=== PATIENT | female | born 1985 | race Caucasian/White ===

== ENCOUNTER 2017-02-08 21:54 | Emergency (ER) | payer SELFPAY ==
[~2017-02-08] VITALS: Ht 165.1 cm; Wt 83.5 kg
[~2017-02-08 21:54] MED LIST: PREG25CA PO
[2017-02-08] MEDS ORDERED: FAMOTIDINE 20 MG (PEPCID) TABLET PO STA (22:17)
[2017-02-08] MEDS ORDERED: DEXAMETHASONE PF 10 MG/ML (DECADRON) VIAL IM STA (22:17)
[2017-02-08] MEDS ORDERED: predniSONE 20 MG TAB PO ONE (22:30)
[2017-02-08] MEDS ORDERED: diphenhydrAMINE 25 MG TAB (BENADRYL) PO ONE (22:30)
--- NOTE | 2017-02-08 22:30 | ED Integumentary General ---
General Chief Complaint: rash Stated Complaint: rash Nursing Triage Note: Patient reports rash and hives since the beginning of December. Denies any known precipitating factors. Source: patient Exam Limitations: no limitations History of Present Illness Time seen by provider: 22:15 Initial Comments 31-year-old female patient presents to the emergency department complains of a rash and hives beginning in December. States she has been seen by her primary care physician and given steroids, Benadryl, and ktqe-xij-mviudux antihistamines without improvement in symptoms. Denies any new medications, clothing soap, bath soaps, lotions, shampoos, foods, etc. Timing/Duration: getting worse, other (onset at 17 December) Location: generalized Possible Cause: no cause identified Modifying Factors: worse with antihistamine (no improvement with antihistamines ), worse with scratching Allergies and Home Medications Allergies Coded Allergies: No Known Drug Allergies (Unverified , 07/15/15) Home Medications Pregabalin 25 Mg Capsule, 25 MG PO BID, (Reported) Constitutional: no symptoms reported EENTM: No ear pain, No mouth pain, No mouth swelling, No nose congestion, No throat pain, No throat swelling Respiratory: No cough, No short of breath, No stridor, No wheezing Cardiovascular: no symptoms reported Gastrointestinal: no symptoms reported Musculoskeletal: no symptoms reported Skin: see HPI, pruritus, rash Psychiatric/Neurological: Denies Headache All Other Systems Reviewed Negative Unless Noted: Yes (Negative excepted noted.) Past Vywofmf-Ykmeqo-Tzyvfb Hx Surgeries HX Surgeries: Yes Surgeries: Adenoidectomy, Tonsillectomy Respiratory Hx Respiratory Disorders: No Cardiovascular Hx Cardiac Disorders: No Neurological Hx Neurological Disorders: Yes Neurological Disorders: Neuropathy Genitourinary Hx Genitourinary Disorders: No Gastrointestinal Hx Gastrointestinal Disorders: No Musculoskeletal Hx Musculoskeletal Disorders: No Reviewed Nursing Assessment Reviewed/Agree w Nursing PMH: Yes Family Medical History Significant Family History: No Pertinent Family Hx Physical Exam Vital Signs Capillary Refill : General Appearance: WD/WN, no apparent distress HEENT: PERRL/EOMI, pharynx normal Neck: supple, normal inspection Cardiovascular: normal peripheral pulses, no edema, no murmur, tachycardia Respiratory: lungs clear, normal breath sounds, no respiratory distress, no accessory muscle use Gastrointestinal: normal bowel sounds, non tender, soft, No distended Extremities: non-tender, normal capillary refill, other (generalized maculopapular rash of all 4 extremities) Neurologic/Psychiatric: alert, normal mood/affect, oriented x 3 Skin: warm/dry, No cyanosis, No cool, No diaphoresis, No damp, No mottled, rash (generalized maculopapular rash) Skin Problem Location: generalized Skin Problem Character: macules, papules, rash Progress/Results/Core Measures Results/Orders My Orders Orders - CHARBEL LAI Famotidine Tablet (Pepcid Tablet) (02/08/17 22:17) Dexamethasone Pf Injection (Decadron Pf (02/08/17 22:17) Diphenhydramine Tablet (Benadryl Tablet) (02/08/17 22:30) Prednisone Tablet (Deltasone Tablet) (02/08/17 22:30) Im/Sub-Q Injection Non-Ab Ed (02/08/17 ) Vital Signs/I&O Departure Communication Progress Notes Patient seen and evaluated. Patient follow-up with her primary care physician. See attached scanned discharge instructions. Impression Impression: Primary Impression: Urticaria Disposition: 01 HOME, SELF-CARE Condition: Improved Departure-Patient Inst. Decision time for Depature: 23:21 CHARBEL LAI February 08, 2017 22:30
[2017-02-08 23:25] VITALS: BP 113/74
--- NOTE | 2017-02-28 14:28 | Physician Query-Final Dx ---
ELLE BERNAL 02/28/17 1428: Clinic Account Progress/Dx Physician Query: Please give diagnosis Date of Service February 08, 2017 at 21:57 Progress Note: Please complete template. Elle [phone] JUDY HOLLINGSWORTH 03/10/17 1744: ELLE BERNAL Feb 28, 2017 14:28 JUDY HOLLINGSWORTH Mar 10, 2017 17:44
--- OUTSIDE RECORDS SUMMARY | 2017-03-01 11:55 | XMS REPORT ---
Author CLARI Castillo [facility] eClinicalWorks Address Unknown Phone Unavailable Care Team Providers Care Curator Herbarium Name Role Phone CLARI CHRISTIE Unavailable Allergies No Known Allergies Problems Problem Type Condition Code Onset Dates Condition Status Problem Tooth abscess 522.5 Active Problem Neuropathy 355.9 Active Medications No Known Medications Results No Known Results Summary Purpose eClinicalWorks Submission
--- OUTSIDE RECORDS SUMMARY | 2017-03-01 11:55 | XMS REPORT ---
Author BENITO Meyers [facility] eClinicalWorks Address Unknown Phone Unavailable Care Team Providers Care Campus Recruiter Name Role Phone BENITO ACUÑA CP Unavailable Allergies, Adverse Reactions, Alerts Substance Reaction Event Type N.K.D.A. Info Not Available Non Drug Allergy Problems Problem Type Condition Code Onset Dates Condition Status Problem Tooth abscess 522.5 Active Assessment Acute suppurative otitis media of left ear without spontaneous rupture of tympanic membrane, recurrence not specified H66.002 Active Problem Neuropathy 355.9 Active Medications Medication Code System Code Instructions Start Date End Date Status Dosage Amoxicillin [facility] [address]-23 500 MG Orally Three times a day January 16, 2016 January 26, 2016 1 capsule Lyrica [facility] [address]-07 50 mg Orally 3 times a day December 01, 2015 1 capsule PredniSONE [facility] [address]-91 20 mg Orally Once a day January 16, 2016January 2 tablets Procedures Procedure Coding System Code Date Office Visit, Est Pt., Level 3 CPT-4 88009 January 16, 2016 Vital Signs Date/Time: January 16, 2016 Temperature 98.3 F Weight 185.6 lbs Height 65.6 in BMI 30.32 Index Blood Pressure Diastolic 74 mmHg Blood Pressure Systolic 106 mmHg Cardiac Monitoring Heart Rate 80 bpm Results No Known Results Summary Purpose eClinicalWorks Submission
--- OUTSIDE RECORDS SUMMARY | 2017-03-01 11:55 | XMS REPORT ---
Author Author JOANNE HUSSEIN Organization eClinicalWorks Address Unknown Phone Unavailable Care Team Providers Care Supervisor Paint Name Role Phone JOANNE HUSSEIN CP Unavailable Allergies No Known Allergies Problems Problem Type Condition ICD-9 Code Onset Dates Condition Status Assessment Dental examination V72.2 Active Medications No Known Medications Procedures Procedure Coding System Code Date INTRAORL-PERIAPICAL EA ADD FILM CPT-4 D0230 Apr 20, 2015 INTRAORL-PERIAPICAL EA ADD FILM CPT-4 D0230 Apr 20, 2015 LTD ORAL EVALUATION - PROBLEM FOCUS CPT-4 D0140 Apr 20, 2015 EXTRAC ERUPTED TOOTH/EXPOSED ROOT CPT-4 D7140 Apr 20, 2015 BITEWING - SINGLE FILM CPT-4 D0270 Apr 20, 2015 EXTRAC ERUPTED TOOTH/EXPOSED ROOT CPT-4 D7140 Apr 20, 2015 Results No Known Results Summary Purpose eClinicalWorks Submission
--- OUTSIDE RECORDS SUMMARY | 2017-03-01 11:55 | XMS REPORT ---
Author ADDISON Oliva Organization eClinicalWorks Address Unknown Phone Unavailable Care Team Providers Care Governor Assembler Hydraulic Name Role Phone ADDISON DIANA CP Unavailable Allergies, Adverse Reactions, Alerts Substance Reaction Event Type N.K.D.A. Info Not Available Non Drug Allergy Problems Problem Type Condition Code Onset Dates Condition Status Problem Tooth abscess 522.5 Active Assessment Abscessed tooth K04.7 Active Problem Neuropathy 355.9 Active Medications Medication Code System Code Instructions Start Date End Date Status Dosage Lyrica [facility] [address]-42 50 mg Orally 3 times a day December 01, 2015 1 capsule Amoxicillin [facility] [address]-93 500 MG Orally every 12 hrs April 12, 2016 Apr 22, 2016 2 capsules Procedures Procedure Coding System Code Date Office Visit, Est Pt., Level 3 CPT-4 03442 April 12, 2016 Vital Signs Date/Time: April 12, 2016 Cardiac Monitoring Heart Rate 84 bpm Weight 201.6 lbs Height 65.6 in Blood Pressure Diastolic 66 mmHg Blood Pressure Systolic 102 mmHg Results No Known Results Summary Purpose eClinicalWorks Submission
--- OUTSIDE RECORDS SUMMARY | 2017-03-01 11:55 | XMS REPORT | Continuity of Care Document ---
Author Author Formerly [facility] Address Unknown Phone Unavailable Allergies Active Description Code Type Severity Reaction Onset Reported/Identified Relationship to Patient Clinical Status Yes No Known Drug Allergies [id number] Drug Allergy Unknown N/ A 07/15/2015 Medications Problems Date Dx Coded Attending Type Code Diagnosis Diagnosed By 06/22/2009 PRAVEEN MITCHELL DO 372.30 CONJUNCTIVITIS, UNSPECIFIED 06/22/2009 ADELA WARD APRN A 372.30 CONJUNCTIVITIS, UNSPECIFIED 06/22/2009 JUDY MARSHALL APRN R 372.30 CONJUNCTIVITIS, UNSPECIFIED 06/22/2009 PRAVEEN MITCHELL DO 372.30 CONJUNCTIVITIS, UNSPECIFIED 01/06/2011 PRAVEEN MITCHELL DO K 729.5 PAIN IN LIMB 01/06/2011 ADELA WARD APRN A 729.5 PAIN IN LIMB 01/06/2011 JUDY MARSHALL APRN R 729.5 PAIN IN LIMB 01/06/2011 PRAVEEN MITCHELL DO K 729.5 PAIN IN LIMB 04/11/2012 PRAVEEN MITCHELL DO K 380.4 CERUMEN IMPACTION 04/11/2012 LUIS MITCHELL DOA K 462 PHARYNGITIS ACUTE 04/11/2012 ADELA WARD APRN A 380.4 CERUMEN IMPACTION 04/11/2012 RAFFY WARD APRNIDI A 462 PHARYNGITIS ACUTE 04/11/2012 JUDY MARSHALL APRN R 380.4 CERUMEN IMPACTION 04/11/2012 JUDY MARSHALL APRN R 462 PHARYNGITIS ACUTE 04/11/2012 PRAVEEN MITCHELL DO K 380.4 CERUMEN IMPACTION 04/11/2012 LUIS MITCHELL DOA K 462 PHARYNGITIS ACUTE 04/20/2012 LUIS MITCHELL DOA K 380.10 OTITIS EXTERNA RIGHT 04/20/2012 ADELA WARD APRN A 380.10 OTITIS EXTERNA RIGHT 04/20/2012 JUDY MARSHALL APRN R 380.10 OTITIS EXTERNA RIGHT 04/20/2012 MITCHELL PRAVEEN MAN 380.10 OTITIS EXTERNA RIGHT 07/10/2013 PRAVEEN MITCHELL DO V76.10 BREAST CANCER SCREENING 07/10/2013 SYLVIAADELA Romero APRN V76.10 BREAST CANCER SCREENING 07/10/2013 JUDY MARSHALL APRN R V76.10 BREAST CANCER SCREENING 07/10/2013 PRAVEEN MITCHELL DO V76.10 BREAST CANCER SCREENING 06/02/2014 JUDY MARSHALL APRN R 305.1 TOBACCO ABUSE 06/02/2014 JUDY MARSHALL APRN R 786.2 COUGH 06/02/2014 JUDY MARSHALL APRN R V01.79 CONTACT WITH OR EXPOSURE TO OTHER VIRAL DISEASES 06/02/2014 PRAVEEN MITCHELL DO 305.1 TOBACCO ABUSE 06/02/2014 PRAVEEN MITCHELL DO 786.2 COUGH 06/02/2014 PRAVEEN MITCHELL DO V01.79 CONTACT WITH OR EXPOSURE TO OTHER VIRAL DISEASES 10/03/2014 PRAVEEN MITCHELL DO 356.9 UNSPECIFIED IDIOPATHIC PERIPHERAL NEUROPATHY 10/03/2014 PRAVEEN MITCHELL DO 720.2 SACROILIITIS NOT ELSEWHERE CLASSIFIED 10/03/2014 PRAVEEN MITCHELL DO 724.3 SCIATICA 07/15/2015 SKYLAR LYNNE, KD Abreu Ot F17.210 NICOTINE DEPENDENCE, CIGARETTES, UNCOMPL 07/15/2015 SKYLAR LYNNE, KD Abreu Ot S61.258A OPEN BITE OF OTHER FINGER W/O DAMAGE TO 07/15/2015 SKYLAR LYNNE, KD Abreu Ot W59.11XA BITTEN BY NONVENOMOUS SNAKE, INITIAL ENC Procedures Code Description [place] [address] MONO TEST (IN-HOUSE) 06/02/2014 Results Encounters ACCT No. Visit Date/Time Discharge Status Pt. Type Provider Facility Loc./Unit Complaint [id number] 10/03/2014 15:21:00 10/03/2014 23: 59:59 CLS Outpatient PRAVEEN MITCHELL DO [id number] 06/02/2014 13:09:00 06/02/2014 23: 59:59 CLS Outpatient JUDY MARSHALL APRN [id number] 08/08/2013 08:33:00 08/08/2013 23: 59:59 CLS Outpatient ADELA WARD APRN [id number] 07/10/2013 18:14:00 07/10/2013 23: 59:59 [facility] Outpatient PRAVEEN MITCHELL DO
--- OUTSIDE RECORDS SUMMARY | 2017-03-01 11:55 | XMS REPORT ---
Author Author PRAVEEN MITCHELL [facility] Address [address] [place] [address] Care Team Providers Care Laundry Superintendent Name Role Phone PRAVEEN MITCHELL Unavailable PROBLEMS Type Condition ICD9-CM Code [id number] Code Onset Dates Condition Status SNOMED Code Problem Abscess, thorax J86.9 Active 608304432 Problem Neuropathy 355.9 Active 644496683 Problem Tooth abscess 522.5 Active 865108431 ALLERGIES Unknown Allergies SOCIAL HISTORY No smoking Hx information available PLAN OF CARE VITAL SIGNS MEDICATIONS Unknown Medications RESULTS No Results PROCEDURES No Known procedures IMMUNIZATIONS No Known Immunizations
--- OUTSIDE RECORDS SUMMARY | 2017-03-01 11:55 | XMS REPORT ---
Author MARIA D Smith [facility] eClinicalWorks Address Unknown Phone Unavailable Care Team Providers Care Affiliate Marketing Manager Name Role Phone MARIA D GAVIN CP Unavailable Allergies, Adverse Reactions, Alerts Substance Reaction Event Type N.K.D.A. Info Not Available Non Drug Allergy Problems Problem Type Condition Code Onset Dates Condition Status Problem Tooth abscess 522.5 Active Assessment Fever, unspecified fever cause R50.9 Active Problem Neuropathy 355.9 Active Medications Medication Code System Code Instructions Start Date End Date Status Dosage Lyrica [facility] [address]-79 50 MG Three times a day Oct 03, 2014 1 capsule by Oral route 3 times per day idioapathic neuropathy (356.9) Promethazine-Codeine [facility] [address]-36 6.25-10 MG/5ML Orally every 6 hrs Sep 07, 2015 5 ml as needed Zithromax Z-Temo [facility] [address]-86 250 MG Orally Once a day Sep 07, 2015 Sep 12, 2015 2 tablets on the first day, then 1 tablet daily for 4 days Procedures Procedure Coding System Code Date Office Visit, Est Pt., Level 3 CPT-4 70682 Sep 07, 2015 INFLUENZA ASSAY W/OPTIC CPT-4 94387 Sep 07, 2015 Vital Signs Date/Time: Sep 07, 2015 Temperature 98.5 F Weight 178.6 lbs Height 65.6 in BMI 29.18 Index Blood Pressure Diastolic 82 mmHg Blood Pressure Systolic 110 mmHg Cardiac Monitoring Heart Rate 104 bpm Results No Known Results Summary Purpose eClinicalWorks Submission
--- OUTSIDE RECORDS SUMMARY | 2017-03-01 11:55 | XMS REPORT ---
Author Author CLARI CHRISTIE Organization [facility] [place] [facility] Address [address] [place] [address] Care Team Providers Care Generation Technologist Name Role Phone LOULOU CHRISTIENETTE Unavailable PROBLEMS Type Condition ICD9-CM Code VFY29-ZP Code Onset Dates Condition Status SNOMED Code Problem Abscess, thorax J86.9 Active 990165241 Problem Neuropathy 355.9 Active 505014604 Problem Tooth abscess 522.5 Active 418983614 Assessment Abscess, thorax J86.9 Aug, Active 024906504 ALLERGIES Substance Reaction Event Type Date Status N.K.D.A. Unknown Non Drug Allergy Aug, Unknown SOCIAL HISTORY No smoking Hx information available PLAN OF CARE VITAL SIGNS Height 65.6 in 2016-08-20 Weight 197.4 lbs 2016-08-20 Heart Rate 112 bpm 2016-08-20 Respiratory Rate 20 2016-08-20 BMI 32.25 kg/m2 2016-08-20 Blood pressure systolic 110 mmHg 2016-08-20 Blood pressure diastolic 76 mmHg 2016-08-20 MEDICATIONS Medication Instructions Dosage Frequency Start Date End Date Duration Status Bactrim DS 800-160 MG Orally Twice a day 1 tablet 12h Aug,Aug 10 day(s) Active Ultram 50 mg Orally every 6 hrs 1 tablet as needed 6h Aug, Active RESULTS No Results PROCEDURES Procedure Date Ordered Related Diagnosis Body Site Office Visit, Est Pt., Level 3 Aug 20, 2016 IMMUNIZATIONS No Known Immunizations
--- OUTSIDE RECORDS SUMMARY | 2017-03-01 11:55 | XMS REPORT ---
Author Author JOANNE HUSSEIN Organization eClinicalWorks Address Unknown Phone Unavailable Care Team Providers Care Bottom Filler Name Role Phone JOANNE HUSSEIN CP Unavailable Allergies No Known Allergies Problems Problem Type Condition ICD-9 Code Onset Dates Condition Status Assessment Dental examination V72.2 Active Medications No Known Medications Procedures Procedure Coding System Code Date INTRAORL-PERIAPICAL 1 FILM 79328 CPT-4 D0220 Apr 21, 2015 LTD ORAL EVALUATION - PROBLEM FOCUS CPT-4 D0140 Apr 21, 2015 Results No Known Results Summary Purpose eClinicalWorks Submission
--- OUTSIDE RECORDS SUMMARY | 2017-03-01 11:55 | XMS REPORT ---
Author Author ADELA WARD Organization eClinicalWorks Address Unknown Phone Unavailable Care Team Providers Care Medical Insurance Coding Specialist Name Role Phone ADELA WARD CP Unavailable Allergies, Adverse Reactions, Alerts Substance Reaction Event Type N.K.D.A. Info Not Available Non Drug Allergy Problems Problem Type Condition ICD-9 Code Onset Dates Condition Status Assessment Pap test, as part of routine gynecological examination V76.2 Active Assessment Breast cancer screening V76.10 Active Assessment Routine gynecological examination V72.31 Active Assessment Vaginal itching 698.1 Active Assessment Laboratory examination ordered as part of a complete physical examination V72.62 Active Medications Medication Code System Code Instructions Start Date End Date Status Dosage Lyrica [facility] [address]-74 50 mg Oct 03, 2014 1 capsule by Oral route 3 times per day idioapathic neuropathy (356.9) Procedures Procedure Coding System Code Date CULTURE, BACTERIA, OTHER CPT-4 01960 May 07, 2015 Preventive Care Est Pt. Age 18-39 CPT-4 57449 May 07, 2015 SPECIMEN HANDLING CPT-4 27317 May 07, 2015 Vital Signs Date/Time: May 07, 2015 Temperature 97.8 F Weight 176.4 lbs Height 64 in BMI 30.28 Index Blood Pressure Diastolic 78 mmHg Blood Pressure Systolic 122 mmHg Cardiac Monitoring Heart Rate 88 bpm Results Name Result Date Reference Range Unit Abnormality Flag CULTURE, GENITAL Summary Purpose eClinicalWorks Submission
--- OUTSIDE RECORDS SUMMARY | 2017-03-01 11:55 | XMS REPORT ---
Author Author CLARI CHRISTIE [facility] eClinicalWorks Address Unknown Phone Unavailable Care Team Providers Care Cut Off Man Name Role Phone CLARI CHRISTIE CP Unavailable Allergies, Adverse Reactions, Alerts Substance Reaction Event Type N.K.D.A. Info Not Available Non Drug Allergy Problems Problem Type Condition ICD-9 Code Onset Dates Condition Status Problem Tooth abscess 522.5 Active Assessment Neuropathy 355.9 Active Problem Neuropathy 355.9 Active Assessment Tooth abscess 522.5 Active Medications Medication Code System Code Instructions Start Date End Date Status Dosage Lyrica [facility] [address]-31 50 MG Three times a day Oct 03, 2014 1 capsule by Oral route 3 times per day idioapathic neuropathy (356.9) Amoxicillin [facility] [address]-93 500 MG Orally 3 times a day Jun 04, 2015 Jun 14, 2015 1 tablet Procedures Procedure Coding System Code Date Office Visit, Est Pt., Level 4 CPT-4 04810 Jun 04, 2015 Vital Signs Date/Time: Jun 04, 2015 Temperature 97.8 F Weight 177.7 lbs Height 64 in BMI 30.50 Index Blood Pressure Diastolic 60 mmHg Blood Pressure Systolic 122 mmHg Cardiac Monitoring Heart Rate 82 bpm Results No Known Results Summary Purpose eClinicalWorks Submission
--- OUTSIDE RECORDS SUMMARY | 2017-03-01 11:55 | XMS REPORT ---
Author Author BENITO ACUÑA [facility] Address [address] [place] [address] Care Team Providers Care Combination Building Inspector Name Role Phone BENITO ACUÑA Unavailable PROBLEMS Type Condition ICD9-CM Code CSY28-LA Code Onset Dates Condition Status SNOMED Code Problem Abscess, thorax J86.9 Active 908171918 Problem Neuropathy 355.9 Active 368290151 Problem Tooth abscess 522.5 Active 018091259 Assessment Abscess, thorax J86.9 Aug, Active 157237176 ALLERGIES Substance Reaction Event Type Date Status N.K.D.A. Unknown Non Drug Allergy Aug, Unknown SOCIAL HISTORY No smoking Hx information available PLAN OF CARE VITAL SIGNS Height 65.6 in 2016-08-26 Weight 201.7 lbs 2016-08-26 Heart Rate 82 bpm 2016-08-26 Respiratory Rate 18 2016-08-26 BMI 32.95 kg/m2 2016-08-26 Blood pressure systolic 122 mmHg 2016-08-26 Blood pressure diastolic 78 mmHg 2016-08-26 MEDICATIONS Medication Instructions Dosage Frequency Start Date End Date Duration Status Lyrica 50 mg Orally 3 times a day 1 capsule 8h Nov, Active ProAir HFA 108 (90 Base) MCG/ACT Inhalation every 4 hrs 2 puffs as needed 4h Nov, Active Ultram 50 mg Orally every 6 hrs 1 tablet as needed 6h Aug, Active Bactrim DS 800-160 MG Orally Twice a day 1 tablet 12h Aug,Aug 10 day(s) Active RESULTS No Results PROCEDURES Procedure Date Ordered Related Diagnosis Body Site Office Visit, Est Pt., Level 3 Aug 26, 2016 IMMUNIZATIONS No Known Immunizations
--- OUTSIDE RECORDS SUMMARY | 2017-03-01 11:55 | XMS REPORT ---
Author Author GIFTY ALEXANDER Organization eClinicalWorks Address Unknown Phone Unavailable Care Team Providers Care Pellet Machine Operator Name Role Phone GIFTY ALEXANDER CP Unavailable Allergies No Known Allergies Problems Problem Type Condition ICD-9 Code Onset Dates Condition Status Assessment Dental examination V72.2 Active Medications No Known Medications Procedures Procedure Coding System Code Date INTRAORL-PERIAPICAL EA ADD FILM CPT-4 D0230 May 20, 2015 INTRAORL-PERIAPICAL EA ADD FILM CPT-4 D0230 May 20, 2015 INTRAORL-PERIAPICAL 1 FILM 13724 CPT-4 D0220 May 20, 2015 PANORAMIC FILM SEE ALSO CODE 58369 CPT-4 D0330 May 20, 2015 INTRAORL-PERIAPICAL EA ADD FILM CPT-4 D0230 May 20, 2015 INTRAORL-PERIAPICAL EA ADD FILM CPT-4 D0230 May 20, 2015 BITEWINGS - FOUR FILMS CPT-4 D0274 May 20, 2015 INTRAORL-PERIAPICAL EA ADD FILM CPT-4 D0230 May 20, 2015 Results No Known Results Summary Purpose eClinicalWorks Submission
== END 2017-02-08 23:25 | disposition home or self-care (01) ==
LOC: EDUNIT# 21:54 → ER 21:57
DX: L50.9 Urticaria, unspecified (principal); R21 Rash and other nonspecific skin eruption
CPT/HCPCS: 96372; 99282

== ENCOUNTER 2017-04-14 18:42 | Emergency (ER) | payer OTHER ==
[~2017-04-14] VITALS: Ht 165.1 cm; Wt 93.0 kg
[2017-04-14] MEDS ORDERED: NAPR500T3 PO (19:07)
[2017-04-14] MEDS ORDERED: LORA0.5T PO (19:07)
[2017-04-14] MEDS ORDERED: ESCI10TA55 PO (19:07)
[2017-04-14] MEDS ORDERED: Chantix (19:07)
[2017-04-14] MEDS ORDERED: PREG50CA2 PO (19:07)
--- NOTE | 2017-04-14 20:09 | ED General ---
General Chief Complaint: Exposure Stated Complaint: NEEDS BLOOD TEST Nursing Triage Note: PT WAS STUCK IN RIGHT INDEX FINGER WITH DIABETIC NEEDLE WHILE CLEANING A ROOM AT WORK AT [employer]. 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 She was cleaning linens when she poked herself on the right pointer finger with an insulin needle. She states this is the type of needle that screws onto a big toes up in. She is familiar with this type of needle because her has to use this. It is not typical insulin needle. This did draw blood and she immediately washed it off. Tetanus is up-to-date within the past 5 years. She states that she has had a hepatitis B vaccine. The hepatitis B, hep C, HIV status of the source patient is obviously unknown. Timing/Duration: 4-6 Hours Severity: Mild Associated Systoms: Denies Symptoms Allergies and Home Medications Allergies Coded Allergies: No Known Drug Allergies (Unverified , 07/15/15) Home Medications Escitalopram Oxalate 10 Mg Tablet, 10 MG PO DAILY, #30 (Reported) Lorazepam 0.5 Mg Tablet, 0.5 MG PO BID PRN for ANXIETY, #60 (Reported) Naproxen 500 Mg Tablet, 500 MG PO BID, #60 (Reported) Pregabalin 50 Mg Capsule, 50 MG PO TID, #84 (Reported) [Chantix] , #56 (Reported) Constitutional: see HPI EENTM: see HPI Respiratory: no symptoms reported Cardiovascular: no symptoms reported Genitourinary: no symptoms reported Musculoskeletal: no symptoms reported Skin: no symptoms reported Psychiatric/Neurological: No Symptoms Reported Hematologic/Lymphatic: No Symptoms Reported Past Eskgjad-Lzwvta-Mcwewa Hx Patient Social History Alcohol Use: Occasionally Uses Recreational Drug Use: No Smoking Status: Never a Smoker Recent Foreign Travel: No Contact w/Someone Who Travel: No Recent Infectious Disease Expo: No Recent Hopitalizations: No Immunizations Up To Date Tetanus Booster (TDap): Unknown Seasonal Allergies Seasonal Allergies: No Surgeries HX Surgeries: Yes Surgeries: Adenoidectomy, Tonsillectomy Respiratory Hx Respiratory Disorders: No Cardiovascular Hx Cardiac Disorders: No Neurological Hx Neurological Disorders: Yes Neurological Disorders: Neuropathy Genitourinary Hx Genitourinary Disorders: No Gastrointestinal Hx Gastrointestinal Disorders: No Musculoskeletal Hx Musculoskeletal Disorders: No Family Medical History Significant Family History: No Pertinent Family Hx Physical Exam Vital Signs Vital Sign - Last 12Hours 04/14/17 19:01 Temp 98.3 Pulse 70 Resp 16 B/P (MAP) 127/93 Capillary Refill : Less Than 3 Seconds General Appearance: No Apparent Distress, WD/WN Eyes: Bilateral Eye EOMI, Bilateral Eye Normal Inspection, Bilateral Eye PERRL HEENT: PERRL/EOMI, TMs Normal Respiratory: No Accessory Muscle Use, No Respiratory Distress Cardiovascular: Regular Rate, Rhythm, Normal Peripheral Pulses Gastrointestinal: Non Tender, Soft Extremity: Normal Capillary Refill, Normal Inspection Neurologic/Psychiatric: Alert, Oriented x3 Skin: Normal Color, Warm/Dry Progress/Results/Core Measures Results/Orders Lab Results Laboratory Tests Test 04/14/17 20:00 Range/Units My Orders Orders - HARLAN ROWE APRN Cbc With Automated Diff (04/14/17 19:21) Comprehensive Metabolic Panel (04/14/17 19:21) Hepatitis B Surface Antibody (04/14/17 19:21) Hepatitis C Antibody (04/14/17 19:21) Hiv 1&2 Antibody (04/14/17 19:21) Hcg,Qualitative Serum (04/14/17 20:07) Vital Signs/I&O Vital Sign - Last 12Hours 04/14/17 19:01 Temp 98.3 Pulse 70 Resp 16 B/P (MAP) 127/93 Blood Pressure Mean: 104 Departure Impression Impression: Primary Impression: Exposure to blood-borne pathogen Disposition: HOME, SELF-CARE Condition: Stable Departure-Patient Inst. Decision time for Depature: 20:11 Referrals: [facility] (PCP/Family) Primary Care Physician Patient Instructions: NO INSTRUCTIONS GIVEN Add. Discharge Instructions: 1. Call occupational health on Monday to make an appointment for follow-up. They will guide your treatment from this point on. Take the anti-viral medications as directed. Side effects including nausea, vomiting, dizziness, headache fatigue dizziness and insomnia. 2. Return to ER for any concerns 3. All discharge instructions reviewed with patient and/or family. Voiced understanding. Scripts Raltegravir Potassium (Isentress) 400 Mg Tablet 400 MG PO BID, #20 TAB Prov: HARLAN ROWE APRN 04/14/17 Emtricitabine/Tenofovir (Truvada 200 mg-300 mg Tablet) 1 Each Tablet 1 EACH PO DAILY, #10 TAB Prov: HARLAN ROWE APRN 04/14/17 HARLAN ROWE APRN Apr 14, 2017 20:09
[2017-04-14] MEDS ORDERED: EMTR1TAB7 PO (20:14)
[2017-04-14] MEDS ORDERED: RALT400T PO (20:14)
[2017-04-14] MEDS ORDERED: EMTRICITABINE/TENOFOVIR (TRUVADA) TAB PO SCH (20:15)
[2017-04-14 20:21] LABS: BASOPHILS % (AUTO) 0 % (0-10); EOSINOPHILS # (AUTO) 0.1 10^3/uL (0.0-0.3); EOSINOPHILS % (AUTO) 1 % (0-10); LYMPHOCYTES # (AUTO) 2.2 X 10^3 (1.0-4.0); LYMPHOCYTES % (AUTO) 30 % (12-44); MEAN CORPUSCULAR HEMOGLOBIN 28 PG (25-34); MEAN CORPUSCULAR HGB CONC 34 G/DL (32-36); MEAN CORPUSCULAR VOLUME 85 FL (80-99); MEAN PLATELET VOLUME 10.6 FL (7.4-10.4); MONOCYTES # (AUTO) 0.5 X 10^3 (0.0-1.0); MONOCYTES % (AUTO) 7 % (0-12); NEUTROPHILS # (AUTO) 4.7 X 10^3 (1.8-7.8); NEUTROPHILS % (AUTO) 63 % (42-75); PLATELET COUNT 193 10^3/uL (130-400); RED BLOOD COUNT 4.64 10^6/uL (4.35-5.85); RED CELL DISTRIBUTION WIDTH 13.3 % (10.0-14.5); WHITE BLOOD COUNT 7.5 10^3/uL (4.3-11.0)
[2017-04-14 20:28] LABS: ALANINE AMINOTRANSFERASE 20 U/L (0-55); ALBUMIN 4.3 GM/DL (3.2-4.5); ANION GAP 12 MMOL/L (5-14); ASPARTATE AMINO TRANSFERASE 16 U/L (5-34); BILIRUBIN,TOTAL 0.3 MG/DL (0.1-1.0); BLOOD UREA NITROGEN 22 MG/DL (7-18); BUN/CREATININE RATIO 30; CALCIUM 9.2 MG/DL (8.5-10.1); CARBON DIOXIDE 19 MMOL/L (21-32); CHLORIDE 108 MMOL/L (98-107); CREATININE SERUM 0.74 MG/DL (0.60-1.30); GFR ESTIMATED > 60; GLUCOSE 97 MG/DL (70-105); SODIUM 139 MMOL/L (135-145); TOTAL PROTEIN 7.2 GM/DL (6.4-8.2)
[2017-04-14 20:50] VITALS: BP 118/87
[2017-04-15] MEDS ORDERED: RALTEGRAVIR 400 MG (ISENTRESS) TABLET PO SCH (09:00)
[2017-04-17 13:02] LABS: HEPATITIS B SURFACE AB INDEX >1000.00 mIU/mL (>=10.00)
[2017-04-17 14:42] LABS: HEPATITIS B SURFACE AB INTERP Immune (Immune); HIV AG AB SCREEN Non-Reactive (Non-Reactive)
== END 2017-04-14 20:50 | disposition home or self-care (01) ==
LOC: EDUNIT# 18:42 → ER 18:49
DX: Z03.89 Encounter for observation for other suspected diseases and conditions ruled out (principal); B19.10 Unspecified viral hepatitis B without hepatic coma; Z77.21 Contact with and (suspected) exposure to potentially hazardous body fluids
CPT/HCPCS: 36415; 80053; 84703; 85025; 86703; 86706; 86803; 99283

== ENCOUNTER 2018-02-22 23:23 | Emergency (ER) | payer OTHER ==
[~2018-02-22] VITALS: Ht 165.1 cm; Wt 93.0 kg
[~2018-02-22 23:23] MED LIST changes: +Chantix; +EMTR1TAB7 PO; +ESCI10TA55 PO; +LORA0.5T PO; +NAPR-915 PO; +PREG50CA2 PO; +RALT400T PO
--- OUTSIDE RECORDS SUMMARY | 2018-02-22 23:28 | XMS REPORT ---
Author Author KALPESH COSTA Organization [facility] Address [address] [place] [address] Care Team Providers Care Real Estate Closer Name Role Phone KALPESH COSTA Unavailable PROBLEMS Type Condition ICD9-CM Code [id number] Code Onset Dates Condition Status SNOMED Code Problem Mood disorder F39 Active 43563058 Problem Anxiety F41.9 Active 75856377 Problem TORSTEN II (cervical intraepithelial neoplasia II) N87.1 Active 593762350 Problem Cervical high risk human papillomavirus (HPV) DNA test positive R87.810 Active 406476473 Problem Other chronic pain G89.29 Active 26142198 ALLERGIES No Known Allergies SOCIAL HISTORY Never Assessed PLAN OF CARE Activity Details Follow Up Will call with results Reason: VITAL SIGNS Height 65.6 in 2016-10-11 Weight 201.9 lbs 2016-10-11 Temperature 97.7 degrees Fahrenheit 2016-10-11 BMI 32.98 kg/m2 2016-10-11 Blood pressure systolic 110 mmHg 2016-10-11 Blood pressure diastolic 68 mmHg 2016-10-11 MEDICATIONS Medication Instructions Dosage Frequency Start Date End Date Duration Status Chantix Starting Month Temo 0.5 MG X 11 & 1 MG X 42 Orally Once a day once per day then twice per day 24h 10 Sep, 2016 Oct, 30 days Active Lyrica 50 mg Orally 3 times a day 1 capsule 8h Nov, Active ProAir HFA 108 (90 Base) MCG/ACT Inhalation every 4 hrs 2 puffs as needed 4h Nov, Active Ibuprofen 800 MG Orally Three times a day 1 tablet 8h 10 Active RESULTS Name Result Date Reference Range TEST, URINE (IN HOUSE) 2016-10-11 RESULTS negative Lot # [id number] Control + Exp date 12/2017 PDF Report 2016-10-11 PDF Report1 [facility] REPORT 2016-10-11 . . . . Comment: . . . . PROCEDURES Procedure Date Ordered Result Body Site URINE TEST Oct 11, 2016 BX/CURETT OF CERVIX W/SCOPE Oct 11, 2016 IMMUNIZATIONS No Known Immunizations MEDICAL (GENERAL) HISTORY Type Description Date Medical History Neuropathy left leg Surgical History tonsillectomy Hospitalization History Child x 2
--- OUTSIDE RECORDS SUMMARY | 2018-02-22 23:29 | XMS REPORT ---
Author Author SURESH Burton [facility] Address [address] [place] [address] Care Team Providers Care Gambling Dealer Name Role Phone mikeSURESH Alonzo Unavailable PROBLEMS Type Condition ICD9-CM Code YDW75-[id number] Code Onset Dates Condition Status SNOMED Code Problem Mood disorder F39 Active 54499625 Problem Anxiety F41.9 Active 03437691 Problem TORSTEN II (cervical intraepithelial neoplasia II) N87.1 Active 414812311 Problem Cervical high risk human papillomavirus (HPV) DNA test positive R87.810 Active 107387508 Problem Other chronic pain G89.29 Active 23743935 ALLERGIES No Known Allergies ENCOUNTERS Encounter Location Date Diagnosis [place] [id number] [address] Dec, Anxiety F41.9 [place] [address] [address] Nov, Anxiety F41.9 [place] [address] [place] [id number] [place] [address] Sep, Anxiety F41.9 [facility] [address] [address] Sep, Acute upper respiratory infection, unspecified J06.9 ; Sore throat J02.9 ; Other viral agents as the cause of diseases classified elsewhere B97.89 and Body aches R52 [facility] [address] [address] Sep, [facility] [address] [place] [id number] [place] [address] Sep, Gum abscess K05.219 [place] [address] [place] [address] Aug, Anxiety F41.9 [facility] [address] [place] [id number] [place] [address] Aug, Anxiety F41.9 ; Mood disorder F39 and Pain in jaw not originating in temporomandibular joint R68.84 [facility] [address] [place] [id number] [place] [address] Jul, Gum abscess K05.219 [facility] [address] [id number] Jun, Dental examination Z01.20 [facility] [address] [address] May, 2017 [facility] [address] [place] [id number] [place] [address] May, [facility] [address] [id number] May, Dental examination Z01.20 [facility] [address] [place] [id number] [place] [address] May, Infection of scalp L08.9 and Acute bacterial conjunctivitis of left eye H10.32 [place] [address] [place] [id number] [place] [address] May, Mood disorder F39 [facility] [address] [place] [id number] [place] [address] Apr, Tinea capitis B35.0 and Cellulitis L03.90 [facility] [address] [place] [id number] [place] [address] Apr, Mood disorder F39 [facility] [address] [place] [id number] [place] [address] Mar, Anxiety F41.9 and Pain in left knee M25.562 [facility] [address] [address] January, Abscess, thorax J86.9 [place] [address] [address] January, Abscess, thorax J86.9 [facility] [address] [place] [address] January, Scabies B86 [facility] [place] [address] [place] [address] Dec, Contact dermatitis, unspecified contact dermatitis type, unspecified trigger L25.9 [facility] [id number] [id number] Oct, [facility] [place] [address] [place] [address] 17 Oct, 2016 Acute pain of right knee M25.561 and Strain of right knee, subsequent encounter S86.911D [facility] [address] [place] [address] Oct, Strain of right knee, initial encounter S86.911A [place] [address] [place] [id number] [place] [address] Oct, Tobacco use Z72.0 ; Tobacco abuse counseling Z71.6 ; Other chronic pain G89.29 and Disorder of teeth and supporting structures, unspecified K08.9 [place] [address] [place] [address] Sep, Cervical high risk human papillomavirus (HPV) DNA test positive R87.810 and Atypical squamous cells of undetermined significance on cytologic smear of cervix (ASC-US) R87.610 [place] [address] [place] [id number] [place] [address] Sep, Tobacco use Z72.0 and Tobacco abuse counseling Z71.6 [place] [address] [place] [address] Sep, Well woman exam Z01.419 [place] [address] [address] Aug, Routine gynecological examination V72.31 ; Well woman exam Z01.419 and Low libido R68.82 [facility] [address] [address] Aug, Dental caries K02.9 [facility] [place] [address] [address] Aug, Wheezing R06.2 and Bronchitis J40 [place] [address] [address] Aug, Abscess, thorax J86.9 [facility] [place] [address] [address] Aug, [facility] [address] [address] Aug, Abscess, thorax J86.9 [facility] [place] [address] [address] Aug, Abscess, thorax J86.9 [place] [address] [address] Jul, [facility] [place] [address] [address] Mar, Abscessed tooth K04.7 [place] [address] [address] January, Mononeuropathy, unspecified G58.9 [facility] [address] [address] Dec, Acute suppurative otitis media of left ear without spontaneous rupture of tympanic membrane, recurrence not specified H66.002 [place] [address] [address] Nov, COPD (chronic obstructive pulmonary disease) J44.9 ; Environmental allergies Z91.09 and Fibromyalgia M79.7 [facility] [address] [place] [address] Nov, Abdominal pain R10.9 and Gastroenteritis K52.9 [facility] [address] [place] [id number] [place] [address] Aug, Fever, unspecified fever cause R50.9 [facility] [address] [address] May, Neuropathy 355.9 and Tooth abscess 522.5 [facility] [address] [id number] May, Dental examination V72.2 [facility] [address] [place] [id number] [place] [address] Apr, Routine gynecological examination V72.31 ; Pap test, as part of routine gynecological examination V76.2 ; Breast cancer screening V76.10 ; Vaginal itching 698.1 and Laboratory examination ordered as part of a complete physical examination V72.62 [facility] [address] [id number] Apr, Dental examination V72.2 [facility] [address] [place] [id number] [place] [address] Apr, [facility] [address] [place] [id number] [place] [id number] Apr, Dental examination V72.2 [facility] [address] [place] [id number] [place] [address] Mar, [facility] [address] [address] Dec, [facility] [address] [place] [id number] [place] [address] Dec, [facility] [address] [place] [id number] [place] [address] Sep, [facility] [address] [facility] [id number] [address] Sep, [facility] [address] [place] [id number] [address] May, [facility] [address] [place] [id number] [address] May, [facility] [address] [place] [id number] [address] Jul, [facility] [address] [place] [id number] [address] Jul, [facility] [address] [place] [id number] [address] Jun, [facility] [address] [address] Jun, [facility] [address] [place] [id number] [address] Apr, [facility] [address] [facility] [id number] [address] Apr, [facility] [address] [place] [id number] [address] Mar, IMMUNIZATIONS No Known Immunizations SOCIAL HISTORY Never Assessed REASON FOR VISIT Rash outbreak on face started yesterday JStrasserRN, Draining rash on scalp started PLAN OF CARE Activity Details Follow Up prn Reason: VITAL SIGNS Height 65.6 in 2017-04-24 Weight 201.6 lbs 2017-04-24 Temperature 97.6 degrees Fahrenheit 2017-04-24 Heart Rate 80 bpm 2017-04-24 Respiratory Rate 22 2017-04-24 BMI 32.93 kg/m2 2017-04-24 Blood pressure systolic 128 mmHg 2017-04-24 Blood pressure diastolic 80 mmHg 2017-04-24 MEDICATIONS Medication Instructions Dosage Frequency Start Date End Date Duration Status Ativan 0.5 MG Orally 2 times a day 1 tablet as needed 12h Mar, Active Wellbutrin SR 150 MG Orally Twice a day 1 tablet 12h Apr, 30 day(s) Active Isentress 400 MG Orally Twice a day 1 tablet 12h Active Terbinafine HCl 250 MG Orally Once a day 1 tablet 24h Apr,Apr 14 days Active Cephalexin 500 MG Orally every 12 hrs 1 capsule 12h Apr, Apr, 10 day(s) Active Lyrica 50 mg Orally 3 times a day 1 capsule 8h 15 Nov, 2015 28 days Active Naproxen 500 mg Orally 2 times a day 1 tablet as needed 12h Mar, Active Chantix Starting Month Temo 0.5 MG X 11 & 1 MG X 42 Orally Once a day as directed 24h January, 30 days Active Truvada 200-300 MG Orally Once a day 1 tablet 24h Active RESULTS No Results PROCEDURES No Known procedures INSTRUCTIONS MEDICATIONS ADMINISTERED No Known Medications MEDICAL (GENERAL) HISTORY Type Description Date Medical History Neuropathy left leg Surgical History tonsillectomy Hospitalization History Child x 2
--- OUTSIDE RECORDS SUMMARY | 2018-02-22 23:29 | XMS REPORT ---
Author Author CLARI CHRISTIE Organization [facility] Address [address] [place] [address] Care Team Providers Care Hollow Handle Bench Worker Name Role Phone CLARI CHRISTIE Unavailable PROBLEMS Type Condition ICD9-CM Code MWP25-DI Code Onset Dates Condition Status SNOMED Code Problem Mood disorder F39 Active 48778296 Problem Anxiety F41.9 Active 58756818 Problem TORSTEN II (cervical intraepithelial neoplasia II) N87.1 Active 055497155 Problem Cervical high risk human papillomavirus (HPV) DNA test positive R87.810 Active 205661159 Problem Other chronic pain G89.29 Active 57646826 ALLERGIES Substance Reaction Event Type Date Status N.K.D.A. Unknown Non Drug Allergy Aug, Unknown SOCIAL HISTORY No smoking Hx information available PLAN OF CARE Activity Details Follow Up 2 Weeks Reason:make appointment with dentist VITAL SIGNS Height 65.6 in 2016-09-10 Weight 200.6 lbs 2016-09-10 Temperature 97.2 degrees Fahrenheit 2016-09-10 Heart Rate 86 bpm 2016-09-10 Respiratory Rate 18 2016-09-10 BMI 32.77 kg/m2 2016-09-10 Blood pressure systolic 116 mmHg 2016-09-10 Blood pressure diastolic 74 mmHg 2016-09-10 MEDICATIONS Medication Instructions Dosage Frequency Start Date End Date Duration Status Mucinex 600 MG Orally every 12 hrs 1 tablet as needed 12h Nov, Active ProAir HFA 108 (90 Base) MCG/ACT Inhalation every 4 hrs 2 puffs as needed 4h Nov, Active Ibuprofen 800 MG Orally Three times a day 1 tablet 8h Aug, Sep, 10 days Active Amoxicillin 500 MG Orally 3 times a day 1 tablet 8h Aug, Sep, 10 day(s) Active Lyrica 50 mg Orally 3 times a day 1 capsule 8h Nov, Active RESULTS No Results PROCEDURES Procedure Date Ordered Related Diagnosis Body Site Office Visit, Est Pt., Level 3 Sep 10, 2016 IMMUNIZATIONS No Known Immunizations
--- OUTSIDE RECORDS SUMMARY | 2018-02-22 23:29 | XMS REPORT ---
Author Author SURESH PATTERSON Organization [facility] Address [address] [place] [address] Care Team Providers Care Spouting Installer Name Role Phone SURESH PATTERSON Unavailable PROBLEMS Type Condition ICD9-CM Code LYZ29-NJ Code Onset Dates Condition Status SNOMED Code Problem Mood disorder F39 Active 85432807 Problem Anxiety F41.9 Active 86939408 Problem TORSTEN II (cervical intraepithelial neoplasia II) N87.1 Active 616236671 Problem Cervical high risk human papillomavirus (HPV) DNA test positive R87.810 Active 694760779 Problem Other chronic pain G89.29 Active 79115199 ALLERGIES Substance Reaction Event Type Date Status N.K.D.A. Unknown Non Drug Allergy Aug, Unknown SOCIAL HISTORY No smoking Hx information available PLAN OF CARE Activity Details Follow Up prn Reason: VITAL SIGNS Height 65.6 in 2016-09-05 Weight 201.7 lbs 2016-09-05 Temperature 97.7 degrees Fahrenheit 2016-09-05 Heart Rate 120 bpm 2016-09-05 Respiratory Rate 20 2016-09-05 Oximetry 95 % 2016-09-05 BMI 32.95 kg/m2 2016-09-05 Blood pressure systolic 102 mmHg 2016-09-05 Blood pressure diastolic 74 mmHg 2016-09-05 MEDICATIONS Medication Instructions Dosage Frequency Start Date End Date Duration Status PredniSONE 20 MG Orally Once a day 2 tablet 24h Aug, Aug, 5 days Active ProAir HFA 108 (90 Base) MCG/ACT Inhalation every 4 hrs 2 puffs as needed 4h Nov, Active Ultram 50 mg Orally every 6 hrs 1 tablet as needed 6h Aug, Active Lyrica 50 mg Orally 3 times a day 1 capsule 8h Nov, Active RESULTS Name Result Date Reference Range Xray : Chest (IN HOUSE) 2016-09-05 PROCEDURES Procedure Date Ordered Related Diagnosis Body Site ALBUTEROL UNIT DOSE FORM INHALED 2016-09-05 N/A MEASURE BLOOD OXYGEN LEVEL Sep 05, 2016 ALBUTEROL INHAL UNIT DOSE 1 MG Sep 05, 2016 NEB/MDI RX INITIAL Sep 05, 2016 Office Visit, Est Pt., Level 3 Sep 05, 2016 CHEST X-RAY Sep 05, 2016 IMMUNIZATIONS No Known Immunizations
--- OUTSIDE RECORDS SUMMARY | 2018-02-22 23:29 | XMS REPORT ---
Author Author BENITO ACUÑA Organization [facility] Address [address] [place] [address] Care Team Providers Care Speech And Language Clinician Name Role Phone BENITO ACUÑA Unavailable PROBLEMS Type Condition ICD9-CM Code PUW04-LG Code Onset Dates Condition Status SNOMED Code Problem Mood disorder F39 Active 25112154 Problem Anxiety F41.9 Active 73665637 Problem TORSTEN II (cervical intraepithelial neoplasia II) N87.1 Active 418329245 Problem Cervical high risk human papillomavirus (HPV) DNA test positive R87.810 Active 741515190 Problem Other chronic pain G89.29 Active 79601101 ALLERGIES No Known Allergies ENCOUNTERS Encounter Location Date Diagnosis [facility] [address] [address] Dec, Anxiety F41.9 [facility] [id number] [place] [address] 53619- 4257 Nov, Anxiety F41.9 [facility] [id number] [place] [address] 13404- 4407 Sep, Anxiety F41.9 [facility] [id number] [place] [address] 45073- 3664 Sep, Acute upper respiratory infection, unspecified J06.9 ; Sore throat J02.9 ; Other viral agents as the cause of diseases classified elsewhere B97.89 and Body aches R52 [facility] [id number] [place] [address] 08599 -4828 Sep, [facility] [id number] [place] [address] 26972- 3241 Sep, Gum abscess K05.219 [facility] [address] 02388- 1448 Aug, Anxiety F41.9 [facility] [id number] [place] [address] 44322- 0247 Aug, Anxiety F41.9 ; Mood disorder F39 and Pain in jaw not originating in temporomandibular joint R68.84 [facility] [id number] [place] [address] 60343 -4511 Jul, Gum abscess K05.219 [facility] [address] [id number] Jun, Dental examination Z01.20 [facility] [address] 50896- 0074 27 May, 2017 [facility] [id number] [place] [address] 59298- 5756 May, [facility] [address] [id number] May, Dental examination Z01.20 [facility] [id number] [place] [address] 57547 -5024 May, Infection of scalp L08.9 and Acute bacterial conjunctivitis of left eye H10.32 [place] [id number] [place] [address] 44670- 4328 May, Mood disorder F39 [facility] [id number] [place] [address] 89489 -5905 Apr, Tinea capitis B35.0 and Cellulitis L03.90 [facility] [id number] [place] [address] 65383- 9616 Apr, Mood disorder F39 [place] [id number] [place] [address] 62588- 4353 Mar, Anxiety F41.9 and Pain in left knee M25.562 [place] [id number] [place] [address] 13113- 5914 January, Abscess, thorax J86.9 [place] [address], [place] [address] January, Abscess, thorax J86.9 [facility] [id number] [place] [address] 83866 -0686 January, Scabies B86 [facility] [place] [address] [place] [address] 73685 -7761 Dec, Contact dermatitis, unspecified contact dermatitis type, unspecified trigger L25.9 [facility] [id number] [place] [id number] Oct, [facility] [place] [id number] [place] [address] 86086 -4562 Oct, Acute pain of right knee M25.561 and Strain of right knee, subsequent encounter S86.911D [facility] [place] [id number] [place] [address] 95098 -4643 Oct, Strain of right knee, initial encounter S86.911A [place] [id number] [place] [address] 09304- 3364 06 Oct, 2016 Tobacco use Z72.0 ; Tobacco abuse counseling Z71.6 ; Other chronic pain G89.29 and Disorder of teeth and supporting structures, unspecified K08.9 [place] [address] [place] [address] 71202- 5962 Sep, Cervical high risk human papillomavirus (HPV) DNA test positive R87.810 and Atypical squamous cells of undetermined significance on cytologic smear of cervix (ASC-US) R87.610 [place] [id number] [place] [address] 57877- 0490 Sep, Tobacco use Z72.0 and Tobacco abuse counseling Z71.6 [place] [id number] [place] [address] 65849- 2162 Sep, Well woman exam Z01.419 [place] [address] 32559- 2990 Aug, Routine gynecological examination V72.31 ; Well woman exam Z01.419 and Low libido R68.[address] [facility] [address] [place] [address] 57505 -6887 Aug, Dental caries K02.9 [facility] [address] 0[address]75 Aug, Wheezing R06.2 and Bronchitis J40 [place] [address] 68193- 4630 Aug, Abscess, thorax J86.[address] [facility] [address] [place] [address] 87419 -6192 Aug, [facility] [address] [place] [address] 70076 -6483 Aug, Abscess, thorax J86.[address] [facility] [place] [address] 08572 -4520 Aug, Abscess, thorax J86.9 [place] [address] 24537- 4073 Jul, [facility] [place] [address] 94867 -3977 Mar, Abscessed tooth K04.7 [place] [address] 82164- 6773 January, Mononeuropathy, unspecified G58.9 [facility] [address] 22353 -1363 Dec, Acute suppurative otitis media of left ear without spontaneous rupture of tympanic membrane, recurrence not specified H66.002 [place] [address] 19264- 4457 15 Nov, 2015 COPD (chronic obstructive pulmonary disease) J44.9 ; Environmental allergies Z91.09 and Fibromyalgia M79.7 [facility] [address] [place] [address] 19682 -8687 Nov, Abdominal pain R10.9 and Gastroenteritis K52.9 [facility] [id number] [place] [address] 440390- 6755 Aug, Fever, unspecified fever cause R50.9 [facility] [address] 72019- 4518 May, Neuropathy 355.9 and Tooth abscess 522.5 [facility] [address] [id number] May, Dental examination V72.2 [facility] [id number] [place] [address] 62144- 9473 Apr, Routine gynecological examination V72.31 ; Pap test, as part of routine gynecological examination V76.2 ; Breast cancer screening V76.10 ; Vaginal itching 698.1 and Laboratory examination ordered as part of a complete physical examination V72.62 [facility] [address] [id number] Apr, Dental examination V72.2 [facility] [id number] [place] [address] 92990- 6899 Apr, [facility] [address] [id number] Apr, Dental examination V72.2 [facility] [id number] [place] [address] 87943- 8973 Mar, [facility] [address] 76832- 7916 Dec, [facility] [id number] [place] [address] 96884- 6743 Dec, [facility] [id number] [place] [address] 84677- 8543 Sep, [facility] [address] [place] [address] 2546 Sep, [facility] [address] [place] [id number] [address] May, [facility] [address], [place] [address] 2546 May, [facility] [address], [place] [address]- 5600 Jul, [facility] [id number] [place] [address] 58947- 7069 Jul, [facility] [id number] [place] [address] 17937- 0841 Jun, [facility] [id number] [place] [address] 87600 2546 Jun, [facility] [id number] [place] [address] 11282- 3650 Apr, [facility] [address], [place] [address] 2546 Apr, [facility] [address], [place] [address]- 3186 Mar, IMMUNIZATIONS No Known Immunizations SOCIAL HISTORY Never Assessed REASON FOR VISIT Mood disorder Pt states she is irritable on Wellbutrin x 1 months.Seems to help at times with some symptoms, but states she wanted to punch ppl when irritated. Kenji PLAN OF CARE Activity Details Follow Up 4 Weeks Reason:mood disorder VITAL SIGNS Height 65.6 in 2017-05-29 Weight 199.9 lbs 2017-05-29 Temperature 98.3 degrees Fahrenheit 2017-05-29 Heart Rate 76 bpm 2017-05-29 Respiratory Rate 20 2017-05-29 BMI 32.66 kg/m2 2017-05-29 Blood pressure systolic 118 mmHg 2017-05-29 Blood pressure diastolic 78 mmHg 2017-05-29 MEDICATIONS Medication Instructions Dosage Frequency Start Date End Date Duration Status Chantix Starting Month Temo 0.5 MG X 11 & 1 MG X 42 Orally Once a day as directed 24h January, 30 days Active Lyrica 50 mg Orally 3 times a day 1 capsule 8h 15 Nov, 2015 28 days Active Naproxen 500 mg Orally 2 times a day 1 tablet as needed 12h Mar, Active Abilify 2 MG Orally Once a day 1 tablet 24h 11 May, 2017 30 day(s) Active Ativan 0.5 MG Orally 2 times a day 1 tablet as needed 12h Mar, Active RESULTS No Results PROCEDURES No Known procedures INSTRUCTIONS MEDICATIONS ADMINISTERED No Known Medications MEDICAL (GENERAL) HISTORY Type Description Date Medical History Neuropathy left leg Surgical History tonsillectomy Hospitalization History Child x 2
--- OUTSIDE RECORDS SUMMARY | 2018-02-22 23:29 | XMS REPORT ---
Author Author RENETTA BROWN Organization [facility] Address [address] [place] [address] Care Team Providers Care Management Accounts Manager Name Role Phone RENETTA BROWN Unavailable PROBLEMS Type Condition ICD9-CM Code NCO89-SJ Code Onset Dates Condition Status SNOMED Code Problem Mood disorder F39 Active 02994446 Problem Anxiety F41.9 Active 55377889 Problem TORSTEN II (cervical intraepithelial neoplasia II) N87.1 Active 261397831 Problem Cervical high risk human papillomavirus (HPV) DNA test positive R87.810 Active 991461458 Problem Other chronic pain G89.29 Active 35056079 ALLERGIES No Known Allergies SOCIAL HISTORY Never Assessed PLAN OF CARE Activity Details Follow Up prn Reason: VITAL SIGNS Height 65.6 in 2016-10-27 Weight 203.4 lbs 2016-10-27 Temperature 98.1 degrees Fahrenheit 2016-10-27 Heart Rate 82 bpm 2016-10-27 Respiratory Rate 18 2016-10-27 BMI 33.23 kg/m2 2016-10-27 Blood pressure systolic 120 mmHg 2016-10-27 Blood pressure diastolic 74 mmHg 2016-10-27 MEDICATIONS Medication Instructions Dosage Frequency Start Date End Date Duration Status Lyrica 50 mg Orally 3 times a day 1 capsule 8h Nov, Active Chantix Continuing Month Temo 1 MG Orally Twice a day 1 tablet 12h Oct, Dec, 30 day(s) Active ProAir HFA 108 (90 Base) MCG/ACT Inhalation every 4 hrs 2 puffs as needed 4h Nov, Active Chantix Starting Month Temo 0.5 MG X 11 & 1 MG X 42 Orally Once a day once per day then twice per day 24h 10 Sep, 2016 Oct, 30 days Active Ibuprofen 800 MG Orally Three times a day 1 tablet 8h 06 Oct, 2016 Nov, 30 day(s) Active Ibuprofen 800 MG Orally Three times a day 1 tablet 8h 10 Active RESULTS No Results PROCEDURES No Known procedures IMMUNIZATIONS No Known Immunizations MEDICAL (GENERAL) HISTORY Type Description Date Medical History Neuropathy left leg Surgical History tonsillectomy Hospitalization History Child x 2
--- OUTSIDE RECORDS SUMMARY | 2018-02-22 23:29 | XMS REPORT ---
Author Author BENITO ACUÑA Organization [facility] Address [address] [place] [address] Care Team Providers Care Knocker Off Name Role Phone BENITO ACUÑA Unavailable PROBLEMS Type Condition ICD9-CM Code JLJ87-EO Code Onset Dates Condition Status SNOMED Code Problem Mood disorder F39 Active 45394099 Problem Anxiety F41.9 Active 03161182 Problem TORSTEN II (cervical intraepithelial neoplasia II) N87.1 Active 219107239 Problem Cervical high risk human papillomavirus (HPV) DNA test positive R87.810 Active 235007912 Problem Other chronic pain G89.29 Active 36374814 ALLERGIES No Known Allergies ENCOUNTERS Encounter Location Date Diagnosis [facility] [address] [address] Dec, [address]41.9 [facility] [id number] [place] [address] 90487- 9158 Nov, Anxiety F41.9 [facility] [id number] [place] [address] 53905- 2105 Sep, [address]41.9 [facility] [id number] [place] [address] 55964- 3031 Sep, Acute upper respiratory infection, unspecified J06.9 ; Sore throat J02.9 ; Other viral agents as the cause of diseases classified elsewhere B97.89 and Body aches R52 [facility] [id number] [place] [address] 66086 -3786 Sep, [facility] [id number] [place] [address] 65083- 3374 Sep, Gum abscess K05.219 [facility] [address] 8[address]- 0749 Aug, [address]xiety [address].9 [facility] [id number] [place] [address] 34131- 1534 Aug, Anxiety F41.9 ; Mood disorder F39 and Pain in jaw not originating in temporomandibular joint R68.84 [facility] [id number] [place] [address] 21712 -9138 Jul, Gum abscess K05.219 [facility] [address] [id number] Jun, Dental examination Z01.20 [facility] [address] [address]33- [address]386 27 May, 2017 [facility] [address] [place] [id number] [place] [address] 99365- 6970 May, [facility] [address] [id number] May, Dental examination Z01.20 [facility] [id number] [place] [address] 11648 -7551 May, Infection of scalp L08.9 and Acute bacterial conjunctivitis of left eye H10.32 [place] [address] [place] [id number] [place] [address] 65085- 1392 May, Mood disorder F39 [facility] [id number] [place] [address] 12255 -6508 Apr, Tinea capitis B35.[address] [facility] [address] [place] [id number] [place] [address] 67862- 0440 Apr, Mood disorder F39 [place] [address] [place] [id number] [place] [address] 97746- 9678 Mar, Anxiety F41.9 and Pain in left knee M25.562 [place] [address] [place] [id number] [place] [address] 69460- 7556 January, Abscess, thorax J86.9 [place] [address], [place] [address]- 2864 January, Abscess, thorax J86.9 [facility] N [id number] [place] [address] 12379 -2620 January, Scabies B86 [facility] [place] [id number] [place] [address] 64501 -1208 Dec, Contact dermatitis, unspecified contact dermatitis type, unspecified trigger L25.9 [facility] [id number] [place] [id number] Oct, [facility] [place] [address] [place] [id number] [place] [address] 93520 -8549 Oct, Acute pain of right knee M25.561 and Strain of right knee, subsequent encounter S86.911D [facility] [place] [id number] [place] [address] 44409 -6573 Oct, Strain of right knee, initial encounter S86.911A [place] [address] [place] [id number] [place] [address] 71757- 1791 06 Oct, 2016 Tobacco use Z72.0 ; Tobacco abuse counseling Z71.6 ; Other chronic pain G89.29 and Disorder of teeth and supporting structures, unspecified K08.9 [place] [address] [place] [address] 57422- 2468 Sep, Cervical high risk human papillomavirus (HPV) DNA test positive R87.810 and Atypical squamous cells of undetermined significance on cytologic smear of cervix (ASC-US) R87.610 [place] [address] [place] [id number] [place] [address] 61587- 8020 Sep, Tobacco use Z72.0 and Tobacco abuse counseling Z71.6 [place] [address] [id number] [place] [address] 10020- 7178 Sep, Well woman exam Z01.419 [place] [address] 42687- 9596 Aug, Routine gynecological examination V72.31 ; Well woman exam Z01.419 and Low libido R68.82 [facility] [address] [place] [address] 97999 -2131 Aug, Dental caries K02.9 [facility] [address] 64301 -0990 Aug, Wheezing R06.2 and Bronchitis J40 [place] [address] 37864- 2376 Aug, Abscess, thorax J86.9 [facility] [address] [place] [address] 81495 -7770 Aug, [facility] [address] [place] [address] 91804 -5058 Aug, Abscess, thorax J86.9 [facility] [place] [address] 49256 -0143 Aug, Abscess, thorax J86.9 [place] [address] 75604- 9408 Jul, [facility] [place] [address] 73533 -6947 Mar, Abscessed tooth K04.7 [place] [address] 39263- 6563 January, Mononeuropathy, unspecified G58.9 [facility] [address] 26016 -1521 Dec, Acute suppurative otitis media of left ear without spontaneous rupture of tympanic membrane, recurrence not specified H66.002 [place] [address] 09109- 1094 15 Nov, 2015 COPD (chronic obstructive pulmonary disease) J44.9 ; Environmental allergies Z91.09 and Fibromyalgia M79.7 [facility] [address] [place] [address] 70787 -5548 Nov, Abdominal pain R10.[address] [facility] [address] [place] [id number] [place] [address] 982226- 9542 Aug, Fever, unspecified fever cause R50.9 [facility] [address] 25442- 6976 May, Neuropathy 355.9 and Tooth abscess 522.5 [facility] [address] [id number] May, Dental examination V72.2 [facility] [id number] [place] [address] 14490- 4611 Apr, Routine gynecological examination V72.31 ; Pap test, as part of routine gynecological examination V76.2 ; Breast cancer screening V76.10 ; Vaginal itching 698.1 and Laboratory examination ordered as part of a complete physical examination V72.62 [facility] [address] [id number] Apr, Dental examination V72.2 [facility] [address] [id number] [place] [address] 99563- 1684 Apr, [facility] [address] [id number] Apr, Dental examination V72.2 [facility] [id number] [place] [address] 10961- 1179 Mar, [facility] [address] 32691- 9424 Dec, [facility] [id number] [place] [address] 24157- [address]141 Dec, [facility] [id number] [place] [address] 34125- 5235 Sep, [facility] [address] [place] [address]- [address] Sep, [facility] [address], [place] [address] May, [facility] [address], [place] [address] 1174 May, [facility] [address] [address] Jul, [facility] [id number] [address] 96[address] Jul, [facility] [id number] [place] [address] 65501- 5176 Jun, [facility] [address], [place] [address] Jun, [facility] [id number] [place] [address] 17946- [address]193 Apr, [facility] [address], [place] [address] Apr, [facility] [address], [place] [address]- 8214 Mar, IMMUNIZATIONS No Known Immunizations SOCIAL HISTORY Never Assessed REASON FOR VISIT anxiety, Meds seems to be doing ok. She has her good days and bad- Foster MA, PT did notice a knot behined her right ear last night PLAN OF CARE Activity Details Follow Up 4 Weeks Reason:mood disorder VITAL SIGNS Height 65.6 in 2017-04-21 Weight 201.8 lbs 2017-04-21 Temperature 97.7 degrees Fahrenheit 2017-04-21 Heart Rate 76 bpm 2017-04-21 Respiratory Rate 18 2017-04-21 BMI 32.97 kg/m2 2017-04-21 Blood pressure systolic 128 mmHg 2017-04-21 Blood pressure diastolic 80 mmHg 2017-04-21 MEDICATIONS Medication Instructions Dosage Frequency Start Date End Date Duration Status Chantix Starting Month Temo 0.5 MG X 11 & 1 MG X 42 Orally Once a day as directed 24h January, 30 days Active Lyrica 50 mg Orally 3 times a day 1 capsule 8h 15 Nov, 2015 28 days Active Ativan 0.5 MG Orally 2 times a day 1 tablet as needed 12h Mar, Active Wellbutrin SR 150 MG Orally Twice a day 1 tablet 12h Apr, 30 day(s) Active Isentress 400 MG Orally Twice a day 1 tablet 12h Active Naproxen 500 mg Orally 2 times a day 1 tablet as needed 12h Mar, Active Truvada 200-300 MG Orally Once a day 1 tablet 24h Active RESULTS No Results PROCEDURES No Known procedures INSTRUCTIONS MEDICATIONS ADMINISTERED No Known Medications MEDICAL (GENERAL) HISTORY Type Description Date Medical History Neuropathy left leg Surgical History tonsillectomy Hospitalization History Child x 2
--- OUTSIDE RECORDS SUMMARY | 2018-02-22 23:30 | XMS REPORT ---
Author Author CLARI CHRISTIE [facility] Address [address] [place] [address] Care Team Providers Care Wet Suit Gluer Name Role Phone CLARI CHRISTIE Unavailable PROBLEMS Type Condition ICD9-CM Code [id number] Code Onset Dates Condition Status SNOMED Code Problem Mood disorder F39 Active 78826618 Problem Anxiety F41.9 Active 40391096 Problem TORSTEN II (cervical intraepithelial neoplasia II) N87.1 Active 508540309 Problem Cervical high risk human papillomavirus (HPV) DNA test positive R87.810 Active 199366806 Problem Other chronic pain G89.29 Active 97537450 ALLERGIES No Information SOCIAL HISTORY Never Assessed PLAN OF CARE VITAL SIGNS MEDICATIONS Medication Instructions Dosage Frequency Start Date End Date Duration Status Chantix 0.5 MG Orally Once a day 1 tablet 24h 30 days Active Lyrica 50 mg Orally 3 times a day 1 capsule 8h Nov, 28 days Active RESULTS No Results PROCEDURES No Known procedures IMMUNIZATIONS No Known Immunizations MEDICAL (GENERAL) HISTORY Type Description Date Medical History Neuropathy left leg Surgical History tonsillectomy Hospitalization History Child x 2
--- OUTSIDE RECORDS SUMMARY | 2018-02-22 23:30 | XMS REPORT ---
Author Author KALPESH COSTA Organization [facility] Address [address] [place] [address] Care Team Providers Care Software Asset Management Analyst Name Role Phone KALPESH COSTA Unavailable PROBLEMS Type Condition ICD9-CM Code [id number] Code Onset Dates Condition Status SNOMED Code Problem Mood disorder F39 Active 14194967 Problem Anxiety F41.9 Active 21703332 Problem TORSTEN II (cervical intraepithelial neoplasia II) N87.1 Active 958960356 Problem Cervical high risk human papillomavirus (HPV) DNA test positive R87.810 Active 478768460 Problem Other chronic pain G89.29 Active 57821506 ALLERGIES Substance Reaction Event Type Date Status N.K.D.A. Unknown Non Drug Allergy Aug, Unknown SOCIAL HISTORY No smoking Hx information available PLAN OF CARE Activity Details Follow Up 1 year for well woman Reason: VITAL SIGNS Height 65.6 in 2016-09-12 Weight 202.3 lbs 2016-09-12 Temperature 98.1 degrees Fahrenheit 2016-09-12 Heart Rate 88 bpm 2016-09-12 Respiratory Rate 20 2016-09-12 BMI 33.05 kg/m2 2016-09-12 Blood pressure systolic 122 mmHg 2016-09-12 Blood pressure diastolic 70 mmHg 2016-09-12 MEDICATIONS Medication Instructions Dosage Frequency Start Date End Date Duration Status ProAir HFA 108 (90 Base) MCG/ACT Inhalation every 4 hrs 2 puffs as needed 4h Nov, Active Ibuprofen 800 MG Orally Three times a day 1 tablet 8h Aug, Sep, 10 days Active Lyrica 50 mg Orally 3 times a day 1 capsule 8h Nov, Active Amoxicillin 500 MG Orally 3 times a day 1 tablet 8h Aug, Sep, 10 day(s) Active Mucinex 600 MG Orally every 12 hrs 1 tablet as needed 12h Nov, Active RESULTS Name Result Date Reference Range TRICHOMONAS (IN HOUSE) 2016-09-12 TRICHOMONAS negative Control + Lot # [id number] Exp date 09/03 BACTERIAL VAGINOSIS (IN HOUSE) 2016-09-12 RESULTS negative Control + Lot # [id number] Exp date 05/04 CULTURE, GENITAL 2016-09-12 Genital Culture, Routine Preliminary report Result 1 CULTURE, GENITAL 2016-09-12 Genital Culture, Routine Final report Result 1 PDF Report 2016-09-12 PDF Report1 LCLS PAP TEST, HPV IF ASCUS 2016-09-12 DIAGNOSIS: Recommendation: Specimen adequacy: Clinician provided ICD10: Performed by: Electronically signed by: . . Pathologist provided ICD10: Note: . HPV, high-risk Positive Negative GC/CHLAM PROBE (STATE) 2016-09-12 CHLAMYDIA GC PROCEDURES Procedure Date Ordered Related Diagnosis Body Site SPECIMEN HANDLING Sep 12, 2016 No Charge Sep 12, 2016 PANDYA VAG, DNA, DIR PROBE Sep 12, 2016 LAB NOT BILLED BY [facility] Sep 12, 2016 Preventive Care Est Pt. Age 18-39 Sep 12, 2016 IMMUNIZATIONS No Known Immunizations
--- OUTSIDE RECORDS SUMMARY | 2018-02-22 23:30 | XMS REPORT ---
Author Author SURESH PATTERSON Organization [facility] IN [facility] Address [address] [place] [address] Care Team Providers Care External Grinder Tender Name Role Phone SURESH PATTERSON Unavailable PROBLEMS Type Condition ICD9-CM Code [id number] Code Onset Dates Condition Status SNOMED Code Problem Mood disorder F39 Active 97131770 Problem Anxiety F41.9 Active 96971506 Problem TORSTEN II (cervical intraepithelial neoplasia II) N87.1 Active 945709584 Problem Cervical high risk human papillomavirus (HPV) DNA test positive R87.810 Active 457899765 Problem Other chronic pain G89.29 Active 82497495 ALLERGIES No Known Allergies SOCIAL HISTORY Never Assessed PLAN OF CARE Activity Details Follow Up prn Reason: VITAL SIGNS Height 65.6 in 2017-01-24 Weight 205.2 lbs 2017-01-24 Temperature 97.8 degrees Fahrenheit 2017-01-24 Heart Rate 82 bpm 2017-01-24 Respiratory Rate 20 2017-01-24 BMI 33.52 kg/m2 2017-01-24 Blood pressure systolic 114 mmHg 2017-01-24 Blood pressure diastolic 72 mmHg 2017-01-24 MEDICATIONS Medication Instructions Dosage Frequency Start Date End Date Duration Status Lyrica 50 mg Orally 3 times a day 1 capsule 8h Nov, Active Permethrin 5 % Externally Once a day 1 application head to toe before bed, wash thoroughly in the am and repeat in 7 days 24h January, January, 7 day(s) Active Chantix 0.5 MG Orally Once a day 1 tablet 24h Active Ibuprofen 800 MG Orally Three times a day 1 tablet 8h 10 Active Cetirizine HCl 10 MG Orally Once a day 1 tablet 24h Dec, 30 day (s) Active Hydrocortisone 1 % Rectal Twice a day 1 application to affected area 12h Dec, January, 30 day(s) Active RESULTS No Results PROCEDURES No Known procedures IMMUNIZATIONS No Known Immunizations MEDICAL (GENERAL) HISTORY Type Description Date Medical History Neuropathy left leg Surgical History tonsillectomy Hospitalization History Child x 2
--- OUTSIDE RECORDS SUMMARY | 2018-02-22 23:30 | XMS REPORT ---
Author Author RENETTA BROWN [facility] IN [facility] Address [address] [place] [address] Care Team Providers Care Explosive Operator Supervisor Name Role Phone RENETTA BROWN Unavailable PROBLEMS Type Condition ICD9-CM Code HNK83-[id number] Code Onset Dates Condition Status SNOMED Code Problem Mood disorder F39 Active 40312583 Problem Anxiety F41.9 Active 32096073 Problem TORSTEN II (cervical intraepithelial neoplasia II) N87.1 Active 454430983 Problem Cervical high risk human papillomavirus (HPV) DNA test positive R87.810 Active 778476070 Problem Other chronic pain G89.29 Active 95855872 ALLERGIES No Known Allergies ENCOUNTERS Encounter Location Date Diagnosis [place] [id number] [place] [id number] [place] [address] Feb, [facility] [place] [id number] [place] [address]74- [address]201 Feb, [place] [id number] [place] [address] 67352[address] 4265 Dec, Anxiety F41.9 [place] [id number] [place] [address] 16787- 5704 Dec, Anxiety F41.9 [facility] [place] [id number] [place] [address] 06709[address] 9778 Nov, Anxiety F41.9 [place] [id number] [place] [address] 26371[address] 3415 Sep, Anxiety F41.9 [place] [id number] [place] [address] 04684- 8025 Sep, Acute upper respiratory infection, unspecified J06.9 ; Sore throat J02.9 ; Other viral agents as the cause of diseases classified elsewhere B97.89 and Body aches R52 [facility] WALK IN [facility] [id number] [place] [address]258 [address]2085 Sep, [facility] [place] [address] [place] [address] 7748[address]- [address] Sep, Gum abscess K05.219 [facility] [place] [address] [address] Aug, Anxiety F41.9 [place] [address] [address]71[address] 3[address] Aug, Anxiety F41.9 ; Mood disorder F39 and Pain in jaw not originating in temporomandibular joint R68.84 [facility] WALK IN [facility] [id number] [place] [address] 98621 -3349 Jul, Gum abscess K05.219 [facility] [address] [id number] Jun, Dental examination Z01.20 [place] [address] [address] May, [place] [address] [address] May, [facility] [id number] [place] [address] [id number] May, Dental examination Z01.20 [facility] WALK IN [place] [address] [address]65 May, Infection of scalp L08.9 and Acute bacterial conjunctivitis of left eye H10.32 [place] [address] [address] 16[address] May, Mood disorder F39 [facility] [place] [id number] [place] [address] 69868 -2375 Apr, Tinea capitis B35.0 and Cellulitis L03.90 [place] [id number] [address] Apr, Mood disorder F39 [place] [id number] [place] [address] 15777- 9098 Mar, Anxiety F41.9 and Pain in left knee M25.562 [place] [id number] [place] [address]57- 1231 January, Abscess, thorax J86.9 [place] [id number] [place] [address] 28524- 3588 January, Abscess, thorax J86.9 [facility] [place] [id number] [place] [address]70 [address]13 January, Scabies B86 [facility] [place] [id number] [place] [address] 55838 -8809 Dec, Contact dermatitis, unspecified contact dermatitis type, unspecified trigger L25.9 [facility] [id number] [place] [id number] Oct, [facility] [address] [place] [address] 66097 [address]6569 Oct, Acute pain of right knee M25.561 and Strain of right knee, subsequent encounter S86.911D [facility] [address] [place] [address] 79635 -0346 Oct, Strain of right knee, initial encounter S86.911A [place] [address] [place] [address] 62586- 4589 Oct, Tobacco use Z72.0 ; Tobacco abuse counseling Z71.6 ; Other chronic pain G89.29 and Disorder of teeth and supporting structures, unspecified K08.9 [place] [address] [place] [address] 15998- 4407 Sep, Cervical high risk human papillomavirus (HPV) DNA test positive R87.810 and Atypical squamous cells of undetermined significance on cytologic smear of cervix (ASC-US) R87.610 [facility] [place] [address] [address]31 Sep, Tobacco use Z72.0 and Tobacco abuse counseling Z71.6 [place] [address] 18487- 2961 Sep, Well woman exam Z01.419 [place] [address] 59896- 9410 Aug, Routine gynecological examination V72.31 ; Well woman exam Z01.419 and Low libido R68.82 [facility] [address] [address] Aug, Dental caries K02.9 [facility] [place] [address] 77[address]3559 Aug, Wheezing R06.2 and Bronchitis J40 [place] [address] 77098- 3347 Aug, Abscess, thorax J86.9 [facility] [address] 397[address] Aug, [facility] [place] [address] [address] Aug, Abscess, thorax J86.9 [facility] [address] 55[address]39 Aug, Abscess, thorax J86.9 [facility] [place] [address] 33[address]61 Jul, [facility] [address] [address] Mar, Abscessed tooth K04.7 [place] [address] 76261- [address] January, Mononeuropathy, unspecified G58.9 [id number] [place] [address] 02363 -[address]02 Dec, Acute suppurative otitis media of left ear without spontaneous rupture of tympanic membrane, recurrence not specified H66.002 [facility] [id number] [place] [address] 84968- 2255 15 Nov, 2015 COPD (chronic obstructive pulmonary disease) J44.9 ; Environmental allergies Z91.09 and Fibromyalgia M79.7 [facility] WALK IN [facility] [address] [address] Nov, Abdominal pain R10.9 and Gastroenteritis K52.[address] [address]- [address] Aug, Fever, unspecified fever cause R50.[address] 85277- [address]285 May, Neuropathy 355.9 and Tooth abscess 522.5 [facility] [address] [id number] May, Dental examination V72.[address] [address] Apr, Routine gynecological examination V72.31 ; Pap test, as part of routine gynecological examination V76.2 ; Breast cancer screening V76.10 ; Vaginal itching 698.1 and Laboratory examination ordered as part of a complete physical examination V72.62 [facility] [address] [id number] Apr, Dental examination V72.2 [place] [address] 61905- [address]772 Apr, [facility] [address] [id number] Apr, Dental examination V72.2 [place] [address] [address]- [address]284 Mar, [address] [facility] [id number] [address] 14 Dec, 2014 [facility] [place] [id number] [address] Dec, [facility] [address] [facility] [id number] [address] Sep, [facility] [place] [address] [address] Sep, [facility] [place] [address] [facility] [id number] [address] May, [facility] [place] [address] [address] May, [facility] [place] [address] [address] Jul, [facility] [place] [address] [address] Jul, [facility] [address] [address] Jun, [facility] [address] [address] Jun, [facility] [place] [address] [id number] [address] Apr, [facility] [id number] [address] Apr, [facility] [address] [id number] [address] Mar, IMMUNIZATIONS No Known Immunizations SOCIAL HISTORY Never Assessed REASON FOR VISIT sores on scalp are draining started about 1 week ago Arline Nova drainage, swollen lymph nodes, right sided gum inflammation PLAN OF CARE Activity Details Follow Up prn Reason: VITAL SIGNS Height 65.6 in 2017-06-06 Weight 207.6 lbs 2017-06-06 Temperature 97.9 degrees Fahrenheit 2017-06-06 Heart Rate 84 bpm 2017-06-06 Respiratory Rate 20 2017-06-06 BMI 33.91 kg/m2 2017-06-06 Blood pressure systolic 126 mmHg 2017-06-06 Blood pressure diastolic 90 mmHg 2017-06-06 MEDICATIONS Medication Instructions Dosage Frequency Start Date End Date Duration Status Ativan 0.5 MG Orally 2 times a day 1 tablet as needed 12h Mar, Active Lyrica 50 mg Orally 3 times a day 1 capsule 8h 15 Nov, 2015 28 days Active Chantix Starting Month Temo 0.5 MG X 11 & 1 MG X 42 Orally Once a day as directed 24h January, 30 days Active Abilify 2 MG Orally Once a day 1 tablet 24h May, 30 day(s) Active Naproxen 500 mg Orally 2 times a day 1 tablet as needed 12h Mar, Active Clindamycin HCl 300 MG Orally every 12 hrs 1 capsule 12h 19 May, 2017 May, 10 days Active Maxitrol 3.5-93154-2.1 Ophthalmic Three times a day 1 application 8h May 7 days Active RESULTS No Results PROCEDURES No Known procedures INSTRUCTIONS MEDICATIONS ADMINISTERED No Known Medications MEDICAL (GENERAL) HISTORY Type Description Date Medical History Neuropathy left leg Surgical History tonsillectomy Hospitalization History Child x 2
--- OUTSIDE RECORDS SUMMARY | 2018-02-22 23:30 | XMS REPORT ---
Author Author CLARI CHRISTIE Organization [facility] Address [address] [place] [address] Care Team Providers Care Sock Lining Stitcher Name Role Phone CLARI CHRISTIE Unavailable PROBLEMS Type Condition ICD9-CM Code [id number] Code Onset Dates Condition Status SNOMED Code Problem Mood disorder F39 Active 09856887 Problem Anxiety F41.9 Active 13483564 Problem TORSTEN II (cervical intraepithelial neoplasia II) N87.1 Active 733720473 Problem Cervical high risk human papillomavirus (HPV) DNA test positive R87.810 Active 665432163 Problem Other chronic pain G89.29 Active 17581016 ALLERGIES No Information SOCIAL HISTORY Never Assessed [...]
--- OUTSIDE RECORDS SUMMARY | 2018-02-22 23:30 | XMS REPORT ---
Author Author RENETTA BROWN Organization [facility] Address [address] [place] [address] Care Team Providers Care Tire Rebuilder Name Role Phone RENETTA BROWN Unavailable PROBLEMS Type Condition ICD9-CM Code [id number] Code Onset Dates Condition Status SNOMED Code Problem Mood disorder F39 Active 96540613 Problem Anxiety F41.9 Active 21800974 Problem TORSTEN II (cervical intraepithelial neoplasia II) N87.1 Active 098560495 Problem Cervical high risk human papillomavirus (HPV) DNA test positive R87.810 Active 230307802 Problem Other chronic pain G89.29 Active 77290936 ALLERGIES No Known Allergies SOCIAL HISTORY Never Assessed PLAN OF CARE Activity Details Follow Up prn Reason: VITAL SIGNS Height 65.6 in 2016-11-04 Weight 201.8 lbs 2016-11-04 Temperature 98.2 degrees Fahrenheit 2016-11-04 Heart Rate 88 bpm 2016-11-04 Respiratory Rate 20 2016-11-04 BMI 32.97 kg/m2 2016-11-04 Blood pressure systolic 116 mmHg 2016-11-04 Blood pressure diastolic 82 mmHg 2016-11-04 MEDICATIONS Medication Instructions Dosage Frequency Start Date End Date Duration Status Ibuprofen 800 MG Orally Three times a day 1 tablet 8h Oct, Nov, 30 day(s) Active Ibuprofen 800 MG Orally Three times a day 1 tablet 8h 10 Active Lyrica 50 mg Orally 3 times a day 1 capsule 8h 15 Nov, 2015 Active Chantix Continuing Month Temo 1 MG Orally Twice a day 1 tablet 12h Oct, Dec, 30 day(s) Active Knee Brace - rigid right knee as needed for comfort as directed Oct, Active RESULTS Name Result Date Reference Range Xray : Knee, Right 3 views (IN HOUSE) 2016-11-04 PROCEDURES Procedure Date Ordered Result Body Site X-RAY EXAM OF KNEE, 3 Nov 04, 2016 IMMUNIZATIONS No Known Immunizations MEDICAL (GENERAL) HISTORY Type Description Date Medical History Neuropathy left leg Surgical History tonsillectomy Hospitalization History Child x 2
--- OUTSIDE RECORDS SUMMARY | 2018-02-22 23:30 | XMS REPORT ---
Author Author CLARI CHRISTIE [facility] Address [address] [place] [address] Care Team Providers Care High Heel Builder Name Role Phone LOULOU CHRISTIENETTE Unavailable PROBLEMS Type Condition ICD9-CM Code [id number] Code Onset Dates Condition Status SNOMED Code Problem Mood disorder F39 Active 02380065 Problem Anxiety F41.9 Active 63777882 Problem TORSTEN II (cervical intraepithelial neoplasia II) N87.1 Active 686953878 Problem Cervical high risk human papillomavirus (HPV) DNA test positive R87.810 Active 044069997 Problem Other chronic pain G89.29 Active 93586917 ALLERGIES Substance Reaction Event Type Date Status N.K.D.A. Unknown Non Drug Allergy Oct, Unknown SOCIAL HISTORY No smoking Hx information available PLAN OF CARE Activity Details Follow Up 3 Months, prn Reason: VITAL SIGNS Height 65.6 in 2016-10-24 Weight 203.4 lbs 2016-10-24 Temperature 98.3 degrees Fahrenheit 2016-10-24 Heart Rate 78 bpm 2016-10-24 Respiratory Rate 20 2016-10-24 BMI 33.23 kg/m2 2016-10-24 Blood pressure systolic 120 mmHg 2016-10-24 Blood pressure diastolic 78 mmHg 2016-10-24 MEDICATIONS Medication Instructions Dosage Frequency Start Date [...] tablet 12h Oct, Dec, 30 day(s) Active Ibuprofen 800 MG Orally Three times a day 1 tablet 8h Oct, Nov, 30 day(s) Active Chantix Starting Month Temo 0.5 MG X 11 & 1 MG X 42 Orally Once a day once per day then twice per day 24h Sep, Oct, 30 days Active RESULTS No Results PROCEDURES Procedure Date Ordered Related Diagnosis Body Site Office Visit, Est Pt., Level 3 Oct 24, 2016 IMMUNIZATIONS No Known Immunizations
--- OUTSIDE RECORDS SUMMARY | 2018-02-22 23:31 | XMS REPORT ---
Author Author BENITO ACUÑA Organization [facility] Address [address] [place] [address] Care Team Providers Care Counter Clerk [employer] Name Role Phone BENITO ACUÑA Unavailable PROBLEMS Type Condition ICD9-CM Code QMC05-AC Code Onset Dates Condition Status SNOMED Code Problem Mood disorder F39 Active 12914543 Problem Anxiety F41.9 Active 22638016 Problem TORSTEN II (cervical intraepithelial neoplasia II) N87.1 Active 771336873 Problem Cervical high risk human papillomavirus (HPV) DNA test positive R87.810 Active 981251182 Problem Other chronic pain G89.29 Active 86351498 ALLERGIES No Known Allergies ENCOUNTERS Encounter Location Date Diagnosis [facility] [address] [address] Feb, [facility] [address] [address] Feb, [place] [address] [address] January, Gum abscess K05.219 [facility] [address] [place] [id number] [place] [address] 8940 Dec, Anxiety F41.9 [facility] [address] [place] [id number] [place] [address] 46750- 9445 Dec, Anxiety F41.9 [facility] [address] [address] Nov, Anxiety F41.9 [facility] [address] [place] [id number] [place] [address] 12[address]- 6753 Sep, Anxiety F41.9 [facility] [address] [address] Sep, Acute upper respiratory infection, unspecified J06.9 ; Sore throat J02.9 ; Other viral agents as the cause of diseases classified elsewhere B97.89 and Body aches R52 [facility] WALK IN [facility] [address] [place] [id number] [place] [address]8910 Sep, [facility] [address] [address] Sep, Gum abscess K05.219 [place] [address] [address]073 Aug, Anxiety F41.[address] [address] Aug, Anxiety F41.9 ; Mood disorder F39 and Pain in jaw not originating in temporomandibular joint R68.84 [facility] WALK IN [facility] [address] [address] Jul, Gum abscess K05.219 [facility] [address] [id number] Jun, Dental examination Z01.20 [place] [address] [address] May, [place] [address] [address] May, [facility] [address] [id number] May, Dental examination Z01.20 [facility] WALK IN [place] [address] [address] May, Infection of scalp L08.9 and Acute bacterial conjunctivitis of left eye H10.32 [facility] [address] [address]- 4[address] 11 May, 2017 Mood disorder F39 [facility] WALK IN [facility] [address] [address] Apr, Tinea capitis B35.0 and Cellulitis L03.90 [place] [address] [place] [address] 39910- 0906 Apr, Mood disorder F39 [place] [id number] [place] [address] 24090- 9001 Mar, Anxiety F41.9 and Pain in left knee M25.562 [place] [id number] [place] [address] 95262- 6500 January, Abscess, thorax J86.9 [place] [id number] [place] [address] 17038- 8812 January, Abscess, thorax J86.9 [facility] WALK IN [address] [place] [address]8507 January, Scabies B86 [facility] IN [address] [place] [address] 8[address]84 -2978 Dec, Contact dermatitis, unspecified contact dermatitis type, unspecified trigger L25.9 [facility] [id number] [place] [id number] Oct, [facility] WALK IN [address] [place] [address] 76954 -3470 Oct, Acute pain of right knee M25.561 and Strain of right knee, subsequent encounter S86.911D [facility] IN [address] [place] [address] 91363 -5119 Oct, Strain of right knee, initial encounter S86.911A [address] [place] [address] 10494- 5084 Oct, Tobacco use Z72.0 ; Tobacco abuse counseling Z71.6 ; Other chronic pain G89.29 and Disorder of teeth and supporting structures, unspecified K08.[address] [place] [address] 64255- 0307 Sep, Cervical high risk human papillomavirus (HPV) DNA test positive R87.810 and Atypical squamous cells of undetermined significance on cytologic smear of cervix (ASC-US) R87.610 [place] [address] [address]- 3380 Sep, Tobacco use Z72.0 and Tobacco abuse counseling Z71.[address] [address] Sep, Well woman exam Z01.419 [place] [address] 48213[address] 0[address] Aug, Routine gynecological examination V72.31 ; Well woman exam Z01.419 and Low libido R68.82 [facility] IN [address] [address] Aug, Dental caries K02.9 [facility] IN [address] [address] Aug, Wheezing R06.2 and Bronchitis J40 [address] 26[address]- 0604 Aug, Abscess, thorax J86.9 [facility] IN [address] 35[address] Aug, [facility] IN [address] 77[address] Aug, Abscess, thorax J86.9 [facility] [address] [place] [address]58 -1448 Aug, Abscess, thorax J86.[address] 47296- 9703 Jul, [facility] WALK IN [address] [address]12 [address]3842 Mar, Abscessed tooth K04.[address] [place] [address] January, Mononeuropathy, unspecified G58.9 [facility] IN CARE [address] [address] Dec, Acute suppurative otitis media of left ear without spontaneous rupture of tympanic membrane, recurrence not specified H66.002 [place] [address] 7[address] 28[address] Nov, COPD (chronic obstructive pulmonary disease) J44.9 ; Environmental allergies Z91.09 and Fibromyalgia M79.7 [facility] W[facility] IN CARE [address] [address] Nov, Abdominal pain R10.9 and Gastroenteritis K52.9 [place] [address] 8[address]- 0809 Aug, Fever, unspecified fever cause R50.9 [place] [address] 83874- 0906 May, Neuropathy 355.9 and Tooth abscess 522.5 [facility] [address] [id number] May, Dental examination V72.2 [place] [address] 67[address] 9135 Apr, Routine gynecological examination V72.31 ; Pap test, as part of routine gynecological examination V76.2 ; Breast cancer screening V76.10 ; Vaginal itching 698.1 and Laboratory examination ordered as part of a complete physical examination V72.62 [facility] [address] [id number] Apr, Dental examination V72.2 [place] [address] [address] Apr, [facility] [address] [id number] Apr, Dental examination V72.2 [place] [address] [facility] [id number] [address] Mar, [facility] [address] [facility] [id number] [address] 14 Dec, 2014 [facility] [address] [facility] [id number] [address] Dec, [facility] [address] [facility] [id number], [place] [address] Sep, [facility] [address] [facility] [id number], [place] [address] Sep, [facility] [address] [address] May, [facility] [address] [address] May, [facility] [address] [address]1 Jul, [facility] [address] [id number] [address]- [address] Jul, [facility] [address] [id number] [address]63 Jun, [facility] [address] [id number] Jun, [facility] [address] [id number] [address] 8[address] Apr, [facility] [address] [id number], [place] [address]- 609[address] Apr, [facility] [address] [id number], [place] [address] 3659 Mar, IMMUNIZATIONS No Known Immunizations SOCIAL HISTORY Never Assessed REASON FOR VISIT Mood disorder-Justina STILES, wanting refill on hydrocodone and talk about meds PLAN OF CARE VITAL SIGNS Height 65.6 in 2017-08-18 Weight 202.3 lbs 2017-08-18 Temperature 98.4 degrees Fahrenheit 2017-08-18 Heart Rate 86 bpm 2017-08-18 Respiratory Rate 18 2017-08-18 BMI 33.05 kg/m2 2017-08-18 Blood pressure systolic 122 mmHg 2017-08-18 Blood pressure diastolic 70 mmHg 2017-08-18 MEDICATIONS Medication Instructions Dosage Frequency Start Date End Date Duration Status Pawnee 5-325 MG Orally every 6 hrs 1 tablet as needed 6h Aug, Active Ativan 0.5 MG Orally 2 times a day 1 tablet as needed 12h Mar, Active Naproxen 500 mg Orally 2 times a day 1 tablet as needed 12h Mar, Active Lyrica 50 mg Orally 3 times a day 1 capsule 8h 15 Nov, 2015 28 days Active Fluoxetine HCl 20 mg Orally Once a day 1 capsule in the morning 24h 25 May 30 day(s) Active RESULTS No Results PROCEDURES No Known procedures INSTRUCTIONS MEDICATIONS ADMINISTERED No Known Medications MEDICAL (GENERAL) HISTORY Type Description Date Medical History Neuropathy left leg Surgical History tonsillectomy Hospitalization History Child x 2
--- OUTSIDE RECORDS SUMMARY | 2018-02-22 23:31 | XMS REPORT ---
Author Author BENITO ACUÑA Organization [facility] Address [address] [place] [address] Care Team Providers Care Financial Analyst Intern Name Role Phone BENITO ACUÑA Unavailable PROBLEMS Type Condition ICD9-CM Code JEU71-YY Code Onset Dates Condition Status SNOMED Code Problem Mood disorder F39 Active 41394838 Problem Anxiety F41.9 Active 38401991 Problem TORSTEN II (cervical intraepithelial neoplasia II) N87.1 Active 150531049 Problem Cervical high risk human papillomavirus (HPV) DNA test positive R87.810 Active 488484474 Problem Other chronic pain G89.29 Active 59791945 ALLERGIES No Information ENCOUNTERS Encounter Location Date Diagnosis [facility] [address] [address] Dec, Anxiety F41.9 [facility] [address] [place] [id number] [place] [address]113- 3113 Nov, Anxiety F41.9 [facility] [address] [place] [id number] [place] [address] 85953- 0060 Sep, Anxiety F41.9 [facility] [address] [place] [id number] [place] [address] 81783- 0087 Sep, Acute upper respiratory infection, unspecified J06.9 ; Sore throat J02.9 ; Other viral agents as the cause of diseases classified elsewhere B97.89 and Body aches R52 [facility] [address] [place] [id number] [place] [address] 46306 -[address]252 Sep, [facility] [address] [place] [id number] [place] [address] 47682- 0896 Sep, Gum abscess K05.219 [facility] [address] [address]- [address]563 Aug, Anxiety F41.9 [facility] [address] [place] [id number] [place] [address] 81080- 4531 Aug, Anxiety F41.9 ; Mood disorder F39 and Pain in jaw not originating in temporomandibular joint R68.84 [facility] [address] [place] [id number] [place] [address] 38992 -6269 Jul, Gum abscess K05.219 [facility] [address] [id number] Jun, Dental examination Z01.20 [facility] [address] [address]- [address]77 27 May, 2017 [place] [address] [address]42- 3929 May, [facility] [address] [id number] May, Dental examination Z01.20 [facility] WALK IN [facility] [address] [place] [id number] [place] [address] 78803 -0729 19 May, 2017 Infection of scalp L08.9 and Acute bacterial conjunctivitis of left eye H10.32 [place] [address] [place] [id number] [place] [address] 58589- 3946 May, Mood disorder F39 [facility] IN [facility] [address] [place] [id number] [place] [address] 10844 -8502 Apr, Tinea capitis B35.0 and Cellulitis L03.90 [facility] [address] [place] [id number] [place] [address] 00900- 3850 Apr, Mood disorder F39 [place] [address] 59196- 8097 Mar, Anxiety F41.9 and Pain in left knee M25.562 [place] [address] [place] [id number] [place] [address] 46977- 8028 25 May, 2017 Abscess, thorax J86.9 [place] [address] [address]- 0777 January, Abscess, thorax J86.9 [facility] [place] [address] [place] [address] 93457 -0488 January, Scabies B86 [facility] WALK IN [place] [address] [place] [address] 26261 -1271 Dec, Contact dermatitis, unspecified contact dermatitis type, unspecified trigger L25.9 [facility] [id number] [place] [address] [id number] Oct, [facility] WALK IN [place] [address] [place] [id number] [place] [address] 51566 -2638 17 Oct, 2016 Acute pain of right knee M25.561 and Strain of right knee, subsequent encounter S86.911D [facility] WALK IN [place] [address] [address] [place] [address] 56065 -1152 Oct, Strain of right knee, initial encounter S86.911A [place] [address] [place] [id number] [place] [address] 77686- 9887 06 Oct, 2016 Tobacco use Z72.0 ; Tobacco abuse counseling Z71.6 ; Other chronic pain G89.29 and Disorder of teeth and supporting structures, unspecified K08.9 [place] [address] [place] [address] 12207- 9803 Sep, Cervical high risk human papillomavirus (HPV) DNA test positive R87.810 and Atypical squamous cells of undetermined significance on cytologic smear of cervix (ASC-US) R87.610 [place] [address] [place] [id number] [place] [address] 13337- 9449 Sep, Tobacco use Z72.0 and Tobacco abuse counseling Z71.6 [place] [address] [place] [address] 65466- 4700 Sep, Well woman exam Z01.419 [place] [address] [place] [address] [address] Aug, Routine gynecological examination V72.31 ; Well woman exam Z01.419 and Low libido R68.82 [facility] [address] [place] [address]405 -6745 Aug, Dental caries K02.9 [facility] W[facility] IN [address] [address] Aug, Wheezing R06.2 and Bronchitis J40 [address] 7[address]- 7865 Aug, Abscess, thorax J86.9 [facility] [address] [place] [address]22 [address]2842 Aug, [facility] [address] [place] [address]45 -0282 Aug, Abscess, thorax J86.9 [facility] [address] 67[address]71 Aug, Abscess, thorax J86.[address] 846[address]- 8308 Jul, [facility] [address] 24237 -2112 Mar, Abscessed tooth K04.[address] [address]- [address]004 January, Mononeuropathy, unspecified G58.9 [facility] [address] [address] Dec, Acute suppurative otitis media of left ear without spontaneous rupture of tympanic membrane, recurrence not specified H66.[address] [address]12- 8433 15 Nov, 2015 COPD (chronic obstructive pulmonary disease) J44.9 ; Environmental allergies Z91.09 and Fibromyalgia M79.7 [facility] [address] [place] [id number] [place] [address] 46293 -8568 Nov, Abdominal pain R10.9 and Gastroenteritis K52.9 [facility] [address] [place] [id number] [place] [address] 555046- 8726 Aug, Fever, unspecified fever cause R50.9 [facility] [address] [address]- 4381 May, Neuropathy 355.9 and Tooth abscess 522.5 [facility] [address] [id number] May, Dental examination V72.2 [facility] [address] [address]- 6991 Apr, Routine gynecological examination V72.31 ; Pap test, as part of routine gynecological examination V76.2 ; Breast cancer screening V76.10 ; Vaginal itching 698.1 and Laboratory examination ordered as part of a complete physical examination V72.62 [facility] [address] [id number] Apr, Dental examination V72.2 [facility] [address] [address]- [address]12 Apr, [facility] [address] [id number] Apr, Dental examination V72.2 [facility] [address] [place] [id number] [place] [address]98- 1984 Mar, [facility] [address] [address]- 9397 Dec, [facility] [address] 39291- 9244 Dec, [facility] [address] [place] [id number] [place] [address] 71756- 0446 Sep, [facility] [address] 17776- 2546 Sep, [facility] [address], [place] [address] 2546 May, [facility] [address], [place] [address]- 2546 May, [facility] [address], [place] [address] 2546 Jul, [facility] [address], [place] [address]- 2546 Jul, [facility] [address] [place] [address] 26153- 9726 Jun, [facility] [address], [place] [address]- 2546 Jun, [facility] [address], [place] [address]- 6996 Apr, [facility] [address], [place] [address]- 2546 Apr, [facility] [address], [place] [address]- 2976 Mar, IMMUNIZATIONS No Known Immunizations SOCIAL HISTORY Never Assessed REASON FOR VISIT Other PLAN OF CARE VITAL SIGNS MEDICATIONS Medication Instructions Dosage Frequency Start Date End Date Duration Status Fluoxetine HCl 20 mg Orally Once a day 1 capsule in the morning 24h May 30 day(s) Active RESULTS No Results PROCEDURES No Known procedures INSTRUCTIONS MEDICATIONS ADMINISTERED No Known Medications MEDICAL (GENERAL) HISTORY Type Description Date Medical History Neuropathy left leg Surgical History tonsillectomy Hospitalization History Child x 2
--- OUTSIDE RECORDS SUMMARY | 2018-02-22 23:31 | XMS REPORT ---
Author Author KALPESH COSTA [facility] Address [address] [place] [address] Care Team Providers Care Bisque Brusher Name Role Phone KALPESH COSTA Unavailable PROBLEMS Type Condition ICD9-CM Code FZV65-TN Code Onset Dates Condition Status SNOMED Code Problem Mood disorder F39 Active 69417887 Problem Anxiety F41.9 Active 33730408 Problem TORSTEN II (cervical intraepithelial neoplasia II) N87.1 Active 172990008 Problem Cervical high risk human papillomavirus (HPV) DNA test positive R87.810 Active 609948050 Problem Other chronic pain G89.29 Active 98626225 ALLERGIES Unknown Allergies SOCIAL HISTORY No smoking Hx information available PLAN OF CARE VITAL SIGNS MEDICATIONS Unknown Medications RESULTS Name Result Date Reference Range TSH 2016-09-19 TSH 2.270 0.450-4.500 CBC 2016-09-19 WBC 8.2 3.4-10.8 RBC 4.91 3.77-5.28 Hemoglobin 14.6 11.1-15.9 Hematocrit 43.9 34.0-46.6 MCV 89 79-97 MCH 29.7 26.6-33.0 MCHC 33.3 31.5-35.7 RDW 14.1 12.3-15.4 Platelets 196 150-379 Neutrophils 68 Lymphs 24 Monocytes 7 Eos 1 Basos 0 Neutrophils (Absolute) 5.6 1.4-7.0 Lymphs (Absolute) 2.0 0.7-3.1 Monocytes(Absolute) 0.6 0.1-0.9 Eos (Absolute) 0.1 0.0-0.4 Baso (Absolute) 0.0 0.0-0.2 Immature Granulocytes 0 Immature Grans (Abs) 0.0 0.0-0.1 LIPID PANEL 2016-09-19 Cholesterol, Total 244 100-199 Triglycerides 268 0-149 HDL Cholesterol 38 >39 VLDL Cholesterol Ramon 54 5-40 LDL Cholesterol Calc 152 0-99 Comment: CMP 2016-09-19 Glucose, Serum 93 65-99 BUN 12 6-20 Creatinine, Serum 0.76 0.57-1.00 eGFR If NonAfricn Am 105 >59 eGFR If Africn Am 121 >59 BUN/Creatinine Ratio 16 8-20 Sodium, Serum 138 134-144 Potassium, Serum 4.4 3.5-5.2 Chloride, Serum 102 96-106 Carbon Dioxide, Total 20 18-29 Calcium, Serum 8.7 8.7-10.2 Protein, Total, Serum 6.2 6.0-8.5 Albumin, Serum 3.8 3.5-5.5 Globulin, Total 2.4 1.5-4.5 A/G Ratio 1.6 1.1-2.5 Bilirubin, Total <0.2 0.0-1.2 Alkaline Phosphatase, S 46 39-117 AST (SGOT) 10 0-40 ALT (SGPT) 11 0-32 PROCEDURES Procedure Date Ordered Related Diagnosis Body Site [facility] Sep 19, 2016 VENIPUNCT, ROUTINE* Sep 19, 2016 IMMUNIZATIONS No Known Immunizations
--- OUTSIDE RECORDS SUMMARY | 2018-02-22 23:31 | XMS REPORT ---
Author Author CLARI CHRISTIE [facility] Address [address] [place] [address] Care Team Providers Care Durability Technician Name Role Phone CLARI CHRISTIE Unavailable PROBLEMS Type Condition ICD9-CM Code LXB30-UT Code Onset Dates Condition Status SNOMED Code Problem Mood disorder F39 Active 29078088 Problem Anxiety F41.9 Active 11864514 Problem TORSTEN II (cervical intraepithelial neoplasia II) N87.1 Active 547944017 Problem Cervical high risk human papillomavirus (HPV) DNA test positive R87.810 Active 800524429 Problem Other chronic pain G89.29 Active 75211500 ALLERGIES No Information SOCIAL HISTORY Never Assessed PLAN OF CARE VITAL SIGNS MEDICATIONS Unknown Medications RESULTS No Results PROCEDURES No Known procedures IMMUNIZATIONS No Known Immunizations MEDICAL (GENERAL) HISTORY Type Description Date Medical History Neuropathy left leg Surgical History tonsillectomy Hospitalization History Child x 2
[2018-02-23] MEDS ORDERED: RX-CYCLOBENZAPRINE 10 MG (FLEXERIL) TAB PPK#3 PO STA (00:32)
[2018-02-23] MEDS ORDERED: RX-NAPROXEN (NAPROSYN) 250 MG TAB PPK#4 PO STA (00:32)
[2018-02-23] MEDS ORDERED: NAPR-915 PO (00:35)
[2018-02-23] MEDS ORDERED: CYCL10TA9 PO (00:35)
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
[2018-02-23] MEDS ORDERED: RX-NAPROXEN (NAPROSYN) 250 MG TAB PPK#4 PO ONE (00:39)
[2018-02-23] MEDS ORDERED: RX-CYCLOBENZAPRINE 10 MG (FLEXERIL) TAB PPK#3 PO ONE (00:39)
[2018-02-23 00:44] VITALS: BP 154/68
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
== END 2018-02-23 00:44 | disposition home or self-care (01) ==
LOC: EDUNIT# 23:23 → ER 23:25
DX: S46.812A Strain of other muscles, fascia and tendons at shoulder and upper arm level, left arm, initial encounter (principal); R40.2142 Coma scale, eyes open, spontaneous, at arrival to emergency department; R40.2252 Coma scale, best verbal response, oriented, at arrival to emergency department; R40.2362 Coma scale, best motor response, obeys commands, at arrival to emergency department; F41.9 Anxiety disorder, unspecified; F32.9 Major depressive disorder, single episode, unspecified; Z90.89 Acquired absence of other organs; V43.53XA Car driver injured in collision with pick-up truck in traffic accident, initial encounter
CPT/HCPCS: 71046; 72040; 73000; 73030

== ENCOUNTER → 2018-07-25 | Outpatient (REF) ==
[~2018-07-25] MED LIST changes: +CYCL10TA9 PO
--- NOTE | 2018-07-25 10:50 | Diagnostic Imaging Report ---
INDICATION: Fall with right wrist pain. Time of Exam: 10:14 AM FINDINGS: Three views of the right wrist were obtained. The distal radius is intact. There is a tiny osseous density adjacent to the ulnar styloid, acuity indeterminate. The carpal bones are intact. The visualized metacarpals are intact. IMPRESSION: Probable age indeterminate tiny avulsion from the ulnar styloid. Clinical correlation of pain at this location is recommended. No other abnormality is seen. Dictated by: Dictated on workstation # [id number]
== END | disposition home or self-care (01) ==
LOC: RAD 09:26
PROVIDERS: ATTEND Family Medicine
CPT/HCPCS: 73110

== ENCOUNTER 2021-01-18 06:00 | Inpatient (IN) | payer MEDICAID, OTHER ==
[~2021-01-18] VITALS: Ht 162.6 cm; Wt 88.2 kg
[~2021-01-18 06:00] MED LIST changes: +ESCI-2 PO; -ESCI10TA55 PO
[2021-01-21] VITALS (44 sets, daily range): BP systolic 90–145; BP diastolic 55–95
[2021-01-21] MEDS ORDERED: TRM50T PO (05:33)
[2021-01-21] MEDS ORDERED: PREN1TAB79 PO (05:33)
[2021-01-21] MEDS ORDERED: D5 LR IV SOLUTION 1,000 ML IV SCH (05:45)
[2021-01-21] MEDS ORDERED: MEPIVACAINE (CARBOCAINE) 2% 50 ML VIAL INJ PRN (05:45)
[2021-01-21] MEDS ORDERED: MINERAL OIL CONCENTRATE 99.9% 15 ML UDC TOP PRN (05:45)
[2021-01-21] MEDS ORDERED: CATHETER FLUSH 10 ML SYR IV SCH (06:00)
[2021-01-21 06:01] LABS: BASOPHILS % (AUTO) 0 % (0-10); EOSINOPHILS % (AUTO) 0 % (0-10); HEMATOCRIT 40 % (35-52); HEMOGLOBIN 13.5 g/dL (11.5-16.0); LYMPHOCYTES # (AUTO) 2.1 10^3/uL (1.0-4.0); LYMPHOCYTES % (AUTO) 19 % (12-44); MEAN CORPUSCULAR HEMOGLOBIN 31 pg (25-34); MEAN CORPUSCULAR HGB CONC 34 g/dL (32-36); MEAN CORPUSCULAR VOLUME 90 fL (80-99); MEAN PLATELET VOLUME 10.8 fL (9.0-12.2); MONOCYTES # (AUTO) 0.6 10^3/uL (0.0-1.0); MONOCYTES % (AUTO) 6 % (0-12); NEUTROPHILS # (AUTO) 8.5 10^3/uL (1.8-7.8); NEUTROPHILS % (AUTO) 74 % (42-75); PLATELET COUNT 164 10^3/uL (130-400); WHITE BLOOD COUNT 11.4 10^3/uL (4.3-11.0)
[2021-01-21 06:02] LABS: CLARITY,URINE SL CLOUDY; COLOR,URINE ORANGE; GLUCOSE, URINE (UA) NEGATIVE (NEGATIVE); KETONES,URINE TRACE (NEGATIVE); LEUKOCYTE ESTERASE ,URINE NEGATIVE (NEGATIVE); NITRITE,URINE NEGATIVE (NEGATIVE); PROTEIN,URINE 1+ (NEGATIVE)
[2021-01-21 06:10] LABS: AMORPHOUS SEDIMENT,UR MOD AMOR URATES /LPF; BACTERIA,URINE MODERATE /HPF; CALCIUM OXALATE CRYSTALS,UR FEW /LPF; SQUAMOUS EPITHELIAL CELL,UR 25-50 /HPF
[2021-01-21 06:11] LABS: BILIRUBIN,URINE NEGATIVE (NEGATIVE)
--- NOTE | 2021-01-21 06:44 | History & Physical-OB ---
OB - Chief Complaint & HPI Date/Time Date of Admission: Date of Admission: January 21, 2021 at 05:16 Date seen by a Provider: January 21, 2021 Time Seen by a Provider: 06:40 Chief Complaint/History OB-Reason for Admission/Chief: Induction of Labor Hx : 3 Hx Para: 2 Expected Date of Delivery: January 17, 2021 Gestational Age in Weeks: 40 Gestational Age in Days: 4 Admission Nurse Assessment Rev: Yes History of Labs GBS negative Allergies and Home Medications Allergies Coded Allergies: No Known Drug Allergies (Unverified , 07/15/15) Home Medications Vit W-Ca,Fe,FA(<1 mg) 1 Each Tablet, 1 EACH PO DAILY, (Reported) Last Action: New Order Tramadol HCl 50 Mg Tablet, 50 MG PO Q4H PRN for PAIN-BREAKTHROUGH, (Reported) Last Action: New Order Patient Home Medication List Home Medication List Reviewed: Yes OB - History Hx of Present Care: Yes Ultrasounds: Normal mid trimester US Obstetrical Complications: None Medical Complications: None Patient Past Medical History no chronic medical problems Immunizations Tetanus Booster (TDap): Unknown OB - Admission Exam Physical Exam HEENT: Moist Membranes Heart: Rhythm Normal Lungs: Clear Abdomen: Gravid Cervical Dilatation: 1cm Effacement: 75% Station: -3 Membranes: Intact Heart Rate: 130's Accelerations: Accelerations Present Short Term Variability: Present Consulting Project Director Variability: Average (6-25) Intensity: Mild De La Cruz Scoring Tool (Modified) Dilation (cm): 1-2cm (1) Effacement (%): 51-79% (2) Descent/Station: -3 (0) Cervix Consistency: Medium(1) Cervix Position: Posterior (0) Add 1 point for: Each previous vaginal delivery (1) De La Cruz Score: 6 Labs Laboratory Tests Test 01/21/21 05:30 01/21/21 05:45 Range/Units Urine Color ORANGE Urine Clarity SL CLOUDY Urine pH 6.0 5-9 Urine Specific [place] >=1.030 1.016-1.022 Urine Protein 1+ H NEGATIVE Urine Glucose (UA) NEGATIVE NEGATIVE Urine Ketones TRACE H NEGATIVE Urine Nitrite NEGATIVE NEGATIVE Urine Bilirubin NEGATIVE NEGATIVE Urine Urobilinogen 4.0 < = 1.0 MG/DL Urine Leukocyte Esterase NEGATIVE NEGATIVE Urine RBC (Auto) 3+ H NEGATIVE Urine RBC 10-25 H /HPF Urine WBC 2-5 /HPF Urine Squamous Epithelial Cells 25-50 H /HPF Urine Crystals PRESENT H /LPF Urine Calcium Oxalate Crystals FEW H /LPF Urine Amorphous Sediment MOD ISIDORO URATES H /LPF Urine Bacteria MODERATE H /HPF Urine Casts NONE /LPF Urine Mucus SMALL H /LPF Urine Culture Indicated NO White Blood Count 11.4 H 4.3-11.0 10^3/uL Red Blood Count 4.43 3.80-5.11 10^6/uL Hemoglobin 13.5 11.5-16.0 g/dL Hematocrit 40 35-52 % Mean Corpuscular Volume 90 80-99 fL Mean Corpuscular Hemoglobin 31 25-34 pg Mean Corpuscular Hemoglobin Concent 34 32-36 g/dL Red Cell Distribution Width 13.5 10.0-14.5 % Platelet Count 164 130-400 10^3/uL Mean Platelet Volume 10.8 9.0-12.2 fL Immature Granulocyte % (Auto) 1 % Neutrophils (%) (Auto) 74 42-75 % Lymphocytes (%) (Auto) 19 12-44 % Monocytes (%) (Auto) 6 0-12 % Eosinophils (%) (Auto) 0 0-10 % Basophils (%) (Auto) 0 0-10 % Neutrophils # (Auto) 8.5 H 1.8-7.8 10^3/uL Lymphocytes # (Auto) 2.1 1.0-4.0 10^3/uL Monocytes # (Auto) 0.6 0.0-1.0 10^3/uL Eosinophils # (Auto) 0.0 0.0-0.3 10^3/uL Basophils # (Auto) 0.0 0.0-0.1 10^3/uL Immature Granulocyte # (Auto) 0.1 0.0-0.1 10^3/uL OB - Assessment/Plan/Diagnosis Assessment Assessment: induction of labor Admission Dx 1. IUP at term 40w 4d gestation Admission Status: Inpatient Order (span 2 midnights) Reason for Inpatient Admission: L&D Plan Plan: Induction Induction Method: AROM Other Plan -pit -epidural planned SANDRA OSUNA MD January 21, 2021 06:44
[2021-01-21] MEDS ORDERED: fentaNYL 2 mcg/ml BUPIVA 0.125 100 ML ONE (07:23)
[2021-01-21] MEDS ORDERED: fentaNYL INJ 100 MCG/2 ML AMP ONE (08:06)
[2021-01-21] MEDS ORDERED: BUPIVACAINE 0.25% 30 ML (SENSORCAINE) VIAL ONE (08:06)
[2021-01-21] MEDS ORDERED: CATHETER FLUSH 10 ML SYR IV PRN (08:15)
[2021-01-21] MEDS ORDERED: LACTATED RINGERS 1,000 ML IV ONE (08:15)
[2021-01-21] MEDS ORDERED: NALOXONE 0.4 MG/ML 1 ML (NARCAN) VIAL IV PRN (08:15)
[2021-01-21] MEDS ORDERED: fentaNYL 2 mcg/ml BUPIVA 0.125 100 ML IV SCH (08:15)
[2021-01-21] MEDS ORDERED: ONDANSETRON 4 MG/2 ML (SDV) Z0FRAN ONE (08:44)
[2021-01-21] MEDS: OXYTOCIN PRE-MIX DRIP 500 ML IV SCH ×4 (08:57→14:13)
[2021-01-21] MEDS ORDERED: ONDANSETRON 4 MG/2 ML (SDV) Z0FRAN IVP PRN (09:00)
[2021-01-21] MEDS ORDERED: MEASLES,MUMPS,RUBELLA 1 EA INJ SQ ONE (13:45)
[2021-01-21] MEDS ORDERED: BENZOCAINE/MENTHOL (DERMOPLAST) 56 ML CAN TP PRN (13:45)
[2021-01-21] MEDS ORDERED: WITCH HAZEL(TUCKS) 40 EA JAR TOP PRN (13:45)
[2021-01-21] MEDS ORDERED: TETANUS,DIPTH,PERTUSS P/F (BOOSTRIX) 0.5 ML VIAL IM ONE (13:45)
--- NOTE | 2021-01-21 13:49 | OB Labor & Delivery Record ---
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 Variability: Average (6-10) Short Term Variability: Present Presentation: Vertex Vital Signs VS - Last 72 Hours, by Label 01/21/21 01/21/21 01/21/21 01/21/21 05:45 06:05 06:20 06:35 Temp 36.7 Pulse 93 84 78 107 Resp 18 18 18 18 B/P (MAP) 128/90 (103) 124/85 (98) 118/77 (91) 145/92 (109) Pulse Ox 99 O2 Delivery Room Air Room Air Room Air Room Air 01/21/21 01/21/21 01/21/21 01/21/21 07:00 07:30 08:00 08:10 Temp 36.7 Pulse 83 89 74 79 Resp 18 18 18 18 B/P (MAP) 132/84 (100) 131/95 (107) 131/88 (102) 132/81 (98) Pulse Ox 98 99 99 O2 Delivery Room Air Room Air Room Air Room Air 01/21/21 01/21/21 01/21/21 01/21/21 08:14 08:18 08:21 08:24 Pulse 86 86 81 86 Resp 18 18 18 18 B/P (MAP) 128/81 (97) 134/89 (104) 129/86 (100) 124/82 (96) Pulse Ox 99 100 99 99 O2 Delivery Room Air Room Air Room Air Room Air 01/21/21 01/21/21 01/21/21 01/21/21 08:25 08:26 08:30 08:45 Temp 36.7 Pulse 85 95 116 102 Resp 18 18 18 18 B/P (MAP) 125/84 (98) 126/75 (92) 122/86 (98) 121/79 (93) Pulse Ox 99 99 99 99 O2 Delivery Room Air Room Air Room Air Room Air 01/21/21 01/21/21 01/21/21 01/21/21 09:00 09:15 09:30 09:45 Temp 36.2 Pulse 125 102 75 106 Resp 18 18 18 18 B/P (MAP) 116/62 (80) 103/63 (76) 117/71 (86) 118/76 (90) Pulse Ox 99 100 100 100 O2 Delivery Room Air Room Air Room Air Room Air 01/21/21 01/21/21 01/21/21 01/21/21 10:00 10:15 10:30 10:45 Temp 36.5 Pulse 79 98 75 66 Resp 18 18 18 18 B/P (MAP) 111/68 (82) 116/80 (92) 110/60 (77) 90/55 (67) Pulse Ox 100 100 100 100 O2 Delivery Room Air Room Air Room Air Room Air 01/21/21 01/21/21 01/21/21 11:00 11:15 11:30 Temp 36.5 Pulse 76 73 71 Resp 18 18 18 B/P (MAP) 94/58 (70) 101/58 (72) 102/59 (73) Pulse Ox 100 100 100 O2 Delivery Room Air Room Air Room Air Signs of Distress by FHT Signs of Distress no Rupture of Membranes Spontaneous Ruture of Membrane: No Amniotic Membrane Rupture Time: 0635 Amniotic Membrane Fluid Desc.: Meconium Stained Vaginal Bleeding Description: None Induction/Anesthesia Epidural Cath Placement - Time: 820 L&D Stage2 Stage Two Stage II Date: January 21, 2021 Stage II Time: 13:02 Monitors and Tracing Monitor Mode: Internal Heart Rate: 115 Monitor Accelerations: Uniform Monitor Decelerations: Variable Fpc Variability: Average (6-10) Short Term Variability: Present Position: Left Occiput Transverse Presentation: Vertex Signs of Distress by FHT Signs of Distress noted upper airway mucous Cord Descript/Complications Cord Vessel Description: 3 Vessels Delivery Type Delivery Method: Spontaneous Vaginal Anterior Shoulder: Left Episiotomy/Perineal Laceration Laceraction(s)/Extensions: Yes Episiotomy Description: Perineal Extension/lac (minor) Sutures Used: Vicryl (x1 stitch) Condition of Infant Delivery 1 minute Comment: 8 5 minute Comment: 9 Condition of Infant Condition of : Living Exam: No Observed Abnormalities, Meconium Staining Resuscitation Resuscitation: N/A - Spontaneous Resp, Oxygen Blowby Resuscitation Comments: Deep suctioning L&D Stage3 Stage Three Stage III Date: January 21, 2021 Stage III Time: 13:07 Pictocin Pitocin Administration mu/min: 6 Pitocin ml/hr: 6 Placenta Delivery Placenta Delivery: Spontaneous Delivery Summary Summary Estimated blood loss (mL): 300 Condition of Delivery Examined: Cervix Examined Post Hemorrhage: Yes Intervention Required cytotec 800mg pr x 1 SANDRA OSUNA MD January 21, 2021 13:49
[2021-01-21] MEDS: IBUPROFEN 600 MG (MOTRIN) TAB PO SCH ×2 (14:05→20:42)
[2021-01-21] MEDS: CATHETER FLUSH 10 ML SYR IV SCH ×2 (14:08→20:43)
[2021-01-21] MEDS: ACETAMINOPHEN 500 MG TAB (TYLENOL) PO SCH (16:07)
[2021-01-21] MEDS ORDERED: ACETAMINOPHEN 500 MG TAB (TYLENOL) PO SCH (18:00)
[2021-01-21] MEDS: DOCUSATE SODIUM 100 MG (COLACE) CAP PO SCH (20:42)
[2021-01-22] MEDS: IBUPROFEN 600 MG (MOTRIN) TAB PO SCH ×3 (02:42→16:13)
[2021-01-22 03:05] VITALS: BP 115/74
[2021-01-22] MEDS: CATHETER FLUSH 10 ML SYR IV SCH ×2 (05:27→13:52)
[2021-01-22 06:03] LABS: BASOPHILS % (AUTO) 0 % (0-10); EOSINOPHILS # (AUTO) 0.1 10^3/uL (0.0-0.3); EOSINOPHILS % (AUTO) 1 % (0-10); HEMATOCRIT 30 % (35-52); HEMOGLOBIN 10.2 g/dL (11.5-16.0); LYMPHOCYTES # (AUTO) 2.1 10^3/uL (1.0-4.0); LYMPHOCYTES % (AUTO) 20 % (12-44); MEAN CORPUSCULAR HEMOGLOBIN 31 pg (25-34); MEAN CORPUSCULAR HGB CONC 34 g/dL (32-36); MEAN CORPUSCULAR VOLUME 92 fL (80-99); MEAN PLATELET VOLUME 11.1 fL (9.0-12.2); MONOCYTES # (AUTO) 0.7 10^3/uL (0.0-1.0); MONOCYTES % (AUTO) 6 % (0-12); NEUTROPHILS # (AUTO) 7.4 10^3/uL (1.8-7.8); NEUTROPHILS % (AUTO) 72 % (42-75); PLATELET COUNT 123 10^3/uL (130-400); WHITE BLOOD COUNT 10.3 10^3/uL (4.3-11.0)
--- NOTE | 2021-01-22 07:26 | Anesthesia-Regional Post-Op ---
Regional Patient Condition Mental Status: Alert, Oriented x3 Circulation: Same as Pre-Op Headache: Absent Sensation: Full Recovery Motor Block: Absent Post Op Complications Complications None Follow Up Care/Instructions Patient Instructions None needed. Anesthesia/Patient Condition Patient is doing well, no complaints, stable vital signs, no apparent adverse anesthesia problems. No complications reported per nursing. NEFTALY SWANSON CRNA January 22, 2021 07:26
--- NOTE | 2021-01-22 07:45 | Discharge Summary ---
Diagnosis/Chief Complaint Date of Admission January 21, 2021 at 05:16 Date of Discharge January 22, 2021 Admission Diagnosis Admission Diagnosis 1. Intrauterine at 40 weeks gestation Discharge Diagnosis 1. Intrauterine at 40 weeks gestation Chief Complaint/HPI Chief Complaint/HPI 35-year-old 3 now term 3 who initially presented to labor and delivery for induction of labor at 40 weeks 2 days gestation. She was followed at [facility] and essentially had unremarkable care. Her EDC was noted to be January 19, 2021 based on early ultrasound. Discharge Summary-OBS Procedures 1. Epidural per anesthesia 2. Spontaneous vaginal delivery 3. Repair of minor first-degree perineal laceration Discharge Physical Examination Allergies: Coded Allergies: No Known Drug Allergies (Unverified , 07/15/15) Vitals & I&Os Intake and Output 01/22/21 00:00 Intake Total 2000 ml Balance 2000 ml Vital Sign - Last 12Hours Date Time Temp Pulse Resp B/P (MAP) Pulse Ox O2 Delivery O2 Flow Rate FiO2 01/22/21 03:05 36.5 75 18 115/74 (88) 96 Room Air General Appearance: Alert, Oriented X3 Respiratory: Clear to Auscultation Cardiovascular: Regular Rate Abdominal: Soft (with uterus firm) Neuro: Normal Speech Hospital Course Was the Problem List Reviewed?: Yes Following admission on January 21, 2021 she underwent routine labor orders. She requested epidural and this was performed early in her labor course. She tolerated the epidural and had excellent pain control. Meconium was noted earlier in the day at time of ruptured membranes. monitor remained reactive however throughout the entire course of labor. She did require Pitocin augmentation taken to a maximum of 8 mU/m. Once complete she was allowed to push she ultimately delivered a term viable female with Apgars of 8 at 1 minute and 9 at 5 minutes. She did not have an episiotomy and there was only a minor first degree laceration which was repaired with 1 stitch of 3-0 Vicryl She was noted to have slight oozing from the vaginal region but she had no cervical laceration. She received Cytotec 800 mg per rectum and had excellent control of bleeding. Following delivery she underwent routine care orders. She had no complications during the remainder of hospital stay. She was noted to have hemoglobin in the morning of January 22 of 10.2 and this was compared to admission of 13.5. She had tolerated regular diet. She was without any complaints of shortness of breath or leg pain. She was felt ready for dismissal during the afternoon of January 22, 2021. Labs Laboratory Tests 01/22/21 05:17: White Blood Count 10.3, Red Blood Count 3.30L, Hemoglobin 10.2#L, Hematocrit 30L , Mean Corpuscular Volume 92, Mean Corpuscular Hemoglobin 31, Mean Corpuscular Hemoglobin Concent 34, Red Cell Distribution Width 13.6, Platelet Count 123L, Mean Platelet Volume 11.1, Immature Granulocyte % (Auto) 1, Neutrophils (%) (Auto) 72, Lymphocytes (%) (Auto) 20, Monocytes (%) (Auto) 6, Eosinophils (%) (Auto) 1, Basophils (%) (Auto) 0, Neutrophils # (Auto) 7.4, Lymphocytes # (Auto) 2.1, Monocytes # (Auto) 0.7, Eosinophils # (Auto) 0.1, Basophils # (Auto) 0.0, Immature Granulocyte # (Auto) 0.1 Discharge Instructions to patient/family Please see electronic discharge instructions given to patient. Discharge Medications Reviewed and agree with Discharge Medication list on patient's Discharge Instruction sheet SANDRA OSUNA MD January 22, 2021 07:45
[2021-01-22] MEDS ORDERED: IBUP-844 PO (07:46)
--- NOTE | 2021-01-22 07:47 | Discharge Inst-Women's Service ---
Discharge Inst-Women's Serv Depart Medication/Instructions New, Converted or Re-Newed RX: Transmitted to Pharmacy ([facility]) Problems Reviewed?: Yes Consults/Follow Up Additional Follow Up: Yes (Dr. Osuna [place] [address] [facility] [place] Activity Driving Instructions: No Driving for 1 Week Nothing Inside Vagina: No [place] (for 6 weeks) Diet Discharge Diet: Regular Diet Return to The Hospital For: as below Symptoms to Report to : Bleeding Excessive, Fever Over 101 Degrees F, Vaginal Discharge Foul For Any Problems or Questions: Contact Your Physician SANDRA OSUNA MD January 22, 2021 07:47
[2021-01-22 08:00] VITALS: BP 122/72
[2021-01-22] MEDS: DOCUSATE SODIUM 100 MG (COLACE) CAP PO SCH (08:45)
[2021-01-22] MEDS: ACETAMINOPHEN 500 MG TAB (TYLENOL) PO SCH ×3 (08:45→16:13)
[2021-01-22 13:50] VITALS: BP 118/68
== END 2021-01-22 16:43 | disposition home or self-care (01) | DRG 807 ==
LOC: LDRP 01-21 05:16
PROVIDERS: ADMIT Family Medicine; ATTEND Family Medicine
PROC: 10E0XZZ Delivery of Products of Conception, External Approach (ICD-10-PCS; principal; 2021-01-21)
PROC: 0HQ9XZZ Repair Perineum Skin, External Approach (ICD-10-PCS; 2021-01-21)
DX: O48.0 Post-term pregnancy (principal); Z37.0 Single live birth; Z3A.40 40 weeks gestation of pregnancy; O70.0 First degree perineal laceration during delivery; O77.0 Labor and delivery complicated by meconium in amniotic fluid
CPT/HCPCS: 36415; 81000; 85025; 86780; 86850; 86900; 86901

== ENCOUNTER 2021-04-08 20:07 | Emergency (ER) | payer MEDICAID ==
[~2021-04-08] VITALS: Ht 165.1 cm; Wt 75.0 kg
[~2021-04-08 20:07] MED LIST changes: +IBUP-844 PO; +PREN1TAB79 PO; +TRM50T PO
[2021-04-08 20:18] VITALS: BP 135/92
[2021-04-08] MEDS ORDERED: ORPHENADRINE 60 MG/2 ML (NORFLEX) AMP (ED ONLY) IM ONE (20:30)
[2021-04-08] MEDS ORDERED: KETOROLAC 60 MG/2 ML VIAL IM ONE (20:30)
[2021-04-08] MEDS ORDERED: PRD20T PO (20:32)
[2021-04-08] MEDS ORDERED: ACHD5005 PO (20:32)
--- NOTE | 2021-04-08 20:33 | ED Back Pain ---
General Chief Complaint: Back Problems Stated Complaint: BACK PAIN, R LEG PAIN Source of Information: Patient Exam Limitations: No Limitations History of Present Illness Date Seen by Provider: Apr 08, 2021 Time Seen by Provider: 20:28 Initial Comments To ER with right low back pain that radiates down the right leg for about 2 days. No fevers or chills. No loss of bowel or bladder control. No IV drug use no history of cancer. No loss of sensation of genitals. Location: Lumbar Spine Timing/Duration: 2-3 Days Severity: Moderate Pain/Injury Location: Back Method of Injury: Unknown Associated Symptoms: lower back pain Allergies and Home Medications Allergies Coded Allergies: No Known Drug Allergies (Unverified , 07/15/15) Home Medications Ibuprofen 600 Mg Tablet, 600 MG PO Q6H Prescribed by: SANDRA OSUNA on 01/22/21 0746 Vit W-Ca,Fe,FA(<1 mg) 1 Each Tablet, 1 EACH PO DAILY, (Reported) Tramadol HCl 50 Mg Tablet, 50 MG PO Q4H PRN for PAIN-BREAKTHROUGH, (Reported) Patient Home Medication List Home Medication List Reviewed: Yes Review of Systems Constitutional: see HPI EENTM: see HPI Respiratory: no symptoms reported Cardiovascular: no symptoms reported Genitourinary: no symptoms reported Musculoskeletal: see HPI, back pain Skin: no symptoms reported Psychiatric/Neurological: No Symptoms Reported Past Wmgyayp-Uhaxeg-Nbsixs Hx Immunizations Up To Date Tetanus Booster (TDap): Unknown Second COVID19 Vaccination Ernesto: 2ND DOSE PENDING FOR 04/13/21 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 oz. 92.570036db; 33.36 BMI Method:Stated General Appearance: No Apparent Distress, WD/WN Neck: Full Range of Motion, Normal Inspection Respiratory: No Accessory Muscle Use, No Respiratory Distress Gastrointestinal: Normal Bowel Sounds, Non Tender, Soft Extremity: Normal Capillary Refill, Normal Inspection Neurologic/Psychiatric: Alert, Oriented x3 Skin: Normal Color, Warm/Dry Departure Impression Primary Impression: Lumbar radiculopathy Disposition: 01 HOME, SELF-CARE Condition: Stable Departure-Patient Inst. Decision time for Depature: 20:30 Referrals: [facility] (PCP/Family) Primary Care Physician Patient Instructions: Low Back Pain (DC) Add. Discharge Instructions: All discharge instructions reviewed with patient and/or family. Voiced understanding. Scripts Hydrocodone/Acetaminophen (Hydrocodone-Acetamin 5-325 mg) 1 Each Tablet 1 TAB PO Q4H PRN for PAIN-MODERATE (5-7), #10 TAB Prov: HARLAN ROWE APRN 04/08/21 Prednisone (Prednisone) 20 Mg Tab 40 MG PO DAILY, #8 TAB 0 Refills Prov: HARLAN ROWE APRN 04/08/21 HARLAN ROWE APRN Apr 08, 2021 20:33
== END 2021-04-08 20:52 | disposition home or self-care (01) ==
LOC: EDUNIT# 20:07 → ER 20:09
DX: M54.16 Radiculopathy, lumbar region (principal)
CPT/HCPCS: 99284

== ENCOUNTER 2021-06-30 15:47 | Emergency (ER) | payer MEDICAID ==
[~2021-06-30] VITALS: Ht 165 cm; Wt 90.7 kg
[~2021-06-30 15:47] MED LIST changes: +ACHD5005 PO; +PRD20T PO
[2021-06-30 15:51] VITALS: BP 134/87
[2021-06-30] MEDS ORDERED: PRD20T PO (16:02)
[2021-06-30] MEDS ORDERED: ACHD5005 PO (16:02)
[2021-06-30] MEDS ORDERED: AMOX500T2 PO (16:02)
--- NOTE | 2021-06-30 16:03 | ED Back Pain ---
General Chief Complaint: Back Problems Stated Complaint: LOWER BACK PAIN Source of Information: Patient Exam Limitations: No Limitations History of Present Illness Date Seen by Provider: Jun 30, 2021 Time Seen by Provider: 15:58 Initial Comments To ER with midline low back pain that radiates from the mid low back down the right leg terminating posterior aspect of the leg at the knee. 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 No history of cancer personally no history of IV drug use no fever no chills no loss of bowel or bladder control no loss of sensation of her genitals. No trauma. She also had 13 teeth pulled about 1 week ago and has ongoing dental pain and some sores on her gums. Location: Lumbar Spine, Paraspinous Muscles Timing/Duration: 1-2 Days Severity: Moderate Pain/Injury Location: Back Associated Symptoms: lower back pain Allergies and Home Medications Allergies Coded Allergies: No Known Drug Allergies (Unverified , 07/15/15) Patient Home Medication List Home Medication List Reviewed: Yes Hydrocodone/Acetaminophen (Hydrocodone-Acetamin 5-325 mg) 1 Each Tablet, 1 TAB PO Q4H PRN for PAIN-MODERATE (5-7) Prescribed by: HARLAN ROWE on 04/08/212032 Ibuprofen (Ibu) 600 Mg Tablet, 600 MG PO Q6H Prescribed by: SANDRA OSUNA on 01/22/21745 Prednisone (Prednisone) 20 Mg Tab, 40 MG PO DAILY Prescribed by: HARLAN ROWE on 04/08/212031 Vit W-Ca,Fe,FA(<1 mg) ( Vitamins) 1 Each Tablet, 1 EACH PO DAILY, (Reported) Entered as Reported by: NAKIA GOMEZ on 01/21/21532 Tramadol HCl (Tramadol HCl) 50 Mg Tablet, 50 MG PO Q4H PRN for PAIN- BREAKTHROUGH, (Reported) Entered as Reported by: NAKIA GOMEZ on 01/21/21532 Review of Systems Constitutional: see HPI EENTM: see HPI Respiratory: no symptoms reported Cardiovascular: no symptoms reported Musculoskeletal: see HPI, back pain Skin: no symptoms reported Psychiatric/Neurological: No Symptoms Reported Past Jbtqfyv-Hrchgn-Uglrnn Hx Immunizations Up To Date Tetanus Booster (TDap): Unknown Seasonal Allergies Seasonal Allergies: No Past Medical History Surgeries: Yes Adenoidectomy, Tonsillectomy Respiratory: No Cardiac: No Neurological: Yes Neuropathy Female Reproductive Disorders: Denies Genitourinary: No Gastrointestinal: No Musculoskeletal: No Endocrine: No HEENT: No Cancer: No Psychosocial: Yes Anxiety, Depression Integumentary: No Blood Disorders: No Family Medical History No Pertinent Family Hx Physical Exam Vital Signs Capillary Refill : Height, Weight, BMI Height: 5'5.00" Weight: 205lbs. oz. 92.282726xf; 27.00 BMI Method:Stated General Appearance: No Apparent Distress, WD/WN HEENT: PERRL/EOMI, TMs Normal, Other (Several teeth have been pulled. The sockets are filled in with tissue, there is some aphthous ulcers on the gingiva both upper and lower.) Neck: Full Range of Motion, Normal Inspection Respiratory: Lungs Clear, Normal Breath Sounds, No Accessory Muscle Use, No Respiratory Distress Gastrointestinal: Normal Bowel Sounds, Non Tender, Soft Extremity: Normal Capillary Refill, Normal Inspection, Other (Right foot is normal with a strong dorsalis pedis and posterior tibial pulse.) Neurologic/Psychiatric: Alert, Oriented x3 Skin: Normal Color, Warm/Dry Departure Impression Primary Impression: Lumbar radiculopathy Additional Impressions: Post extraction dental pain Aphthous ulcer of mouth Disposition: HOME, SELF-CARE Condition: Stable Departure-Patient Inst. Decision time for Depature: 16:01 Referrals: [facility] (PCP/Family) Primary Care Physician Patient Instructions: Low Back Pain (DC), Mouth Sores Add. Discharge Instructions: 1. Use the topical numbing medication as directed several times a day. Take the antibiotic as directed. Take the steroid and pain medication as needed for your back. Beware the pain medication can be addicting so use this as infrequently as possible. All discharge instructions reviewed with patient and/or family. Voiced understanding. Scripts Prednisone (Prednisone) 20 Mg Tab 40 MG PO DAILY, #6 TAB 0 Refills Prov: HARLAN ROWE APRN 06/30/21 Hydrocodone/Acetaminophen (Hydrocodone-Acetamin 5-325 mg) 1 Each Tablet 1 TAB PO Q4H PRN for PAIN-MODERATE (5-7), #10 TAB Prov: HARLAN ROWE APRN 06/30/21 Amoxicillin (Amoxicillin) 500 Mg Tablet 500 MG PO TID, #15 TAB Prov: HARLAN ROWE APRN 06/30/21 Work/School Note: Work Release Form Date Seen in the Emergency Department: Jun 30, 2021 Return to Work: Jul 02, 2021 HARLAN ROWE APRN Jun 30, 2021 16:03
[2021-06-30] MEDS ORDERED: LIDOCAINE 2% VISCOUS 15 ML UDC PO ONE (16:15)
== END 2021-06-30 16:08 | disposition home or self-care (01) ==
LOC: EDUNIT# 15:47 → ER 15:48
DX: M54.16 Radiculopathy, lumbar region (principal); K08.89 Other specified disorders of teeth and supporting structures; K12.0 Recurrent oral aphthae; Z79.52 Long term (current) use of systemic steroids
CPT/HCPCS: 99281

== ENCOUNTER 2021-07-25 11:33 | Emergency (ER) | payer MEDICAID ==
[~2021-07-25] VITALS: Ht 162.6 cm; Wt 95.5 kg
[~2021-07-25 11:33] MED LIST changes: +AMOX500T2 PO
--- NOTE | 2021-07-25 12:36 | ED Back Pain ---
General Chief Complaint: Back Problems Stated Complaint: LOWER BACK PAIN Source of Information: Patient Exam Limitations: No Limitations History of Present Illness Date Seen by Provider: Jul 25, 2021 Time Seen by Provider: 11:37 Initial Comments This 35-year-old woman with chronic lower back pain presents to the emergency department by private vehicle with exacerbation after roughhousing with her boyfriend last night. She felt a pop in her lower back and then had worsening pain. She reports of briefly losing feeling in her legs bilaterally for a few minutes. She has regained full function and sensation in her lower extremities. She is ambulatory. She reports pain is now 6 out of 10. It radiates to her right knee at times. She denies any bowel or bladder dysfunction or groin numbness. She has tried heat and ibuprofen 800 mg. She went to a chiropractor on July 19 prior to this injury. She missed her follow-up appointment. Allergies and Home Medications Allergies Coded Allergies: No Known Drug Allergies (Unverified , 07/15/15) Patient Home Medication List Home Medication List Reviewed: Yes Amoxicillin (Amoxicillin) 500 Mg Tablet, 500 MG PO TID Prescribed by: HARLAN ROWE on 06/30/21 160 Cyclobenzaprine HCl (Cyclobenzaprine HCl) 10 Mg Tablet, 10 MG PO TID PRN for SPASMS Prescribed by: KD CORBETT on 07/25/21 1237 Hydrocodone/Acetaminophen (Hydrocodone-Acetamin 5-325 mg) 1 Each Tablet, 1 TAB PO Q4H PRN for PAIN-MODERATE (5-7) Prescribed by: HARLAN ROWE on 04/08/212032 Hydrocodone/Acetaminophen (Hydrocodone-Acetamin 5-325 mg) 1 Each Tablet, 1 TAB PO Q4H PRN for PAIN-MODERATE (5-7) Prescribed by: HARLAN ROWE on 06/30/21 1602 Hydrocodone/Acetaminophen (Hydrocodone-Acetamin 5-325 mg) 1 Each Tablet, 1 TAB P O Q4H PRN for PAIN-BREAKTHROUGH Prescribed by: KD CORBETT on 07/25/21 1238 Ibuprofen (Ibu) 600 Mg Tablet, 600 MG PO Q6H Prescribed by: SANDRA OSUNA on 01/22/21 0746 Prednisone (Prednisone) 20 Mg Tab, 40 MG PO DAILY Prescribed by: HARLAN ROWE on 04/08/212031 Prednisone (Prednisone) 20 Mg Tab, 40 MG PO DAILY Prescribed by: HARLAN ROWE on 06/30/21 1602 Prednisone (Prednisone) 20 Mg Tab, 40 MG PO DAILY Prescribed by: KD CORBETT on 07/25/21 1237 Vit W-Ca,Fe,FA(<1 mg) ( Vitamins) 1 Each Tablet, 1 EACH PO DAILY, (Reported) Entered as Reported by: NAKIA GOMEZ on 01/21/21 05 Tramadol HCl (Tramadol HCl) 50 Mg Tablet, 50 MG PO Q4H PRN for PAIN-BREAKTH ROUGH, (Reported) Entered as Reported by: NAKIA GOMEZ on 01/21/21532 Review of Systems Constitutional: no symptoms reported EENTM: no symptoms reported Respiratory: no symptoms reported Cardiovascular: no symptoms reported Gastrointestinal: no symptoms reported Genitourinary: no symptoms reported Musculoskeletal: see HPI Skin: no symptoms reported Psychiatric/Neurological: See HPI Past Jjenhws-Wrkgbp-Krkiju Hx Patient Social History Tobacco Use?: No Use of E-Cig and/or Vaping dev: Yes E-Cig or Vaping type used: Nicotine Substance use?: No Alcohol Use?: No Immunizations Up To Date Tetanus Booster (TDap): Unknown First/Initial COVID19 Vaccinat: 03/23/2021 Second COVID19 Vaccination Ernesto: 04/13/2021 Seasonal Allergies Seasonal Allergies: No Past Medical History Surgeries: Yes Adenoidectomy, Tonsillectomy Respiratory: No Cardiac: No Neurological: Yes Neuropathy Female Reproductive Disorders: Denies Genitourinary: No Gastrointestinal: No Musculoskeletal: No Endocrine: No HEENT: No Cancer: No Psychosocial: Yes Anxiety, Depression Integumentary: No Blood Disorders: No Family Medical History No Pertinent Family Hx Physical Exam Vital Signs Vital Signs - First Documented 07/25/21 11:42 Temp 36.2 Pulse 102 Resp 20 B/P (MAP) 132/96 (108) Pulse Ox 100 O2 Delivery Room Air Capillary Refill : Height, Weight, BMI Height: 5'5.00" Weight: 205lbs. oz. 92.565719ll; 33.00 BMI Method:Stated General Appearance: No Apparent Distress, WD/WN HEENT: PERRL/EOMI, Normal ENT Inspection Neck: Normal Inspection Cardiovascular: Regular Rate, Rhythm, No Murmur Respiratory: Lungs Clear, Normal Breath Sounds, No Accessory Muscle Use Gastrointestinal: Non Tender, Soft Back: Normal Inspection, Vertebral Tenderness (Lower lumbar spine), Other (Ten cruz muscle spasms in the lumbar paraspinous region, particularly on the right) Extremity: Normal Inspection, No Pedal Edema Neurologic/Psychiatric: Alert, Oriented x3, No Motor/Sensory Deficits, Normal Mood/Affect, nematologist II-XII Norm as Tested Skin: Normal Color, Warm/Dry Progress/Results/Core Measures Results/Orders Vital Signs/I&O 07/25/21 07/25/21 11:42 12:47 Temp 36.2 36.2 Pulse 102 98 Resp 20 18 B/P (MAP) 132/96 (108) 131/98 Pulse Ox 100 100 O2 Delivery Room Air Room Air Departure Impression Primary Impression: Low back pain Qualified Codes: M54.41 - Lumbago with sciatica, right side; G89.29 - Other chronic pain Additional Impressions: Lumbar radiculopathy Muscle spasm of back Disposition: 01 HOME, SELF-CARE Condition: Stable Departure-Patient Inst. Decision time for Depature: 12:27 Referrals: [facility] ([facility]/Family) Primary Care Physician Patient Instructions: Low Back Pain (DC), Radiculopathy Add. Discharge Instructions: Use ibuprofen up to 800 mg every 8 hours or 600 mg every 6 hours as needed for pain. You may add either Tylenol (acetaminophen) up to 1000 mg every 6 hours as needed or hydrocodone as prescribed for additional pain relief. For muscle spasms use cyclobenzaprine as prescribed. Please be advised that hydrocodone and cyclobenzaprine may cause drowsiness. Do not drive or operate machinery on these medications. Gentle heat may be helpful in helping with relaxing muscle spasms and easing back pain. Avoid heavy lifting or bending until pain improves. Please follow-up with your primary care provider as soon as possible to discuss further evaluation of your back pain. You may need further evaluation such as an MRI of the back for further treatment such as physical therapy. Please return to the emergency room immediately if you have worsening symptoms that include a true weakness of your legs, loss of feeling in your legs, numbness in your groin, or difficulty controlling bowels or bladder. Call with questions or concerns. All discharge instructions reviewed with patient and/or family. Voiced understanding. Scripts Hydrocodone/Acetaminophen (Hydrocodone-Acetamin 5-325 mg) 1 Each Tablet 1 TAB PO Q4H PRN for PAIN-BREAKTHROUGH, #10 TAB Prov: KD CHENG MD 07/25/21 Cyclobenzaprine HCl (Cyclobenzaprine HCl) 10 Mg Tablet 10 MG PO TID PRN for SPASMS, #10 TAB Prov: KD CHENG MD 07/25/21 Prednisone (Prednisone) 20 Mg Tab 40 MG PO DAILY, #8 TAB 0 Refills Prov: KD CHENG MD 07/25/21 Copy Copies To 1: PRAVEEN MITCHELL JOSHUA T MD Jul 25, 2021 12:36
[2021-07-25] MEDS ORDERED: PRD20T PO (12:37)
[2021-07-25] MEDS ORDERED: ACHD5005 PO (12:37)
[2021-07-25] MEDS ORDERED: CYCL10TA9 PO (12:37)
[2021-07-25 12:47] VITALS: BP 131/98
== END 2021-07-25 12:47 | disposition home or self-care (01) ==
LOC: EDUNIT# 11:33 → ER 11:35
DX: M54.16 Radiculopathy, lumbar region (principal); M62.830 Muscle spasm of back
CPT/HCPCS: 99281

== ENCOUNTER 2021-08-11 17:37 | Emergency (ER) | payer MEDICAID ==
[~2021-08-11] VITALS: Ht 162 cm; Wt 95.0 kg
[~2021-08-11 17:37] MED LIST changes: +CYCL10TA25 PO; -CYCL10TA9 PO
--- NOTE | 2021-08-11 18:15 | ED Lower Extremity ---
General Chief Complaint: Lower Extremity Stated Complaint: L KNEE PAIN Nursing Triage Note: AMB TO ROOM WITHOUT PROBLEM REPORTS WAS GETTING UP OFF FLOOR AND FELT A POP IN L KNEE. HAS NOT TAKEN ANY OTC PAIN MEDS Source: patient History of Present Illness Date Seen by Provider: Aug 11, 2021 Time Seen by Provider: 17:51 Initial Comments PT ARRIVES VIA POV FROM HOME STATES AROUND 1130 THIS AM, SHE GOT UP FROM THE FLOOR, AND FELT/HEARD HER LEFT KNEE POP ( WAS ON THE FLOOR WITH HER 6 MONTH OLD CHILD) HAS BEEN HAVING PAIN SINCE THEN--RATES PAIN 03/27 HAS NOT TAKEN ANYTHING FOR PAIN AT ANY TIME TODAY--STATES BOTH TYLENOL AND MOTRIN UPSET HER STOMACH AND GIVE HER DIARRHEA NO SWELLING OR BRUISING NO RADIATION OF PAIN NO PARESTHESIAS OR MOTOR DEFICITS NO PRIOR PROBLEMS WITH THIS KNEE LMP--UNKNOWN, ON DEPO-PROVERA, LAST SHOT WAS LAST WEEK. PCP: [facility] Allergies and Home Medications Allergies Coded Allergies: No Known Drug Allergies (Unverified , 07/15/15) Patient Home Medication List Home Medication List Reviewed: Yes Amoxicillin (Amoxicillin) 500 Mg Tablet, 500 MG PO TID Prescribed by: HARLAN ROWE on 06/30/21 160 Cyclobenzaprine HCl (Cyclobenzaprine HCl) 10 Mg Tablet, 10 MG PO TID PRN for SPASMS Prescribed by: KD CORBETT on 07/25/21 1237 Hydrocodone/Acetaminophen (Hydrocodone-Acetamin 5-325 mg) 1 Each Tablet, 1 TAB PO Q4H PRN for PAIN-MODERATE (5-7) Prescribed by: HARLAN ROWE on 04/08/212032 Hydrocodone/Acetaminophen (Hydrocodone-Acetamin 5-325 mg) 1 Each Tablet, 1 TAB PO Q4H PRN for PAIN-MODERATE (5-7) Prescribed by: HARLAN ROWE on 06/30/21 1602 Hydrocodone/Acetaminophen (Hydrocodone-Acetamin 5-325 mg) 1 Each Tablet, 1 TAB PO Q4H PRN for PAIN-BREAKTHROUGH Prescribed by: KD CORBETT on 07/25/21 1238 Ibuprofen (Ibu) 600 Mg Tablet, 600 MG PO Q6H Prescribed by: SANDRA OSUNA on 01/22/21 0746 Prednisone (Prednisone) 20 Mg Tab, 40 MG PO DAILY Prescribed by: HARLAN ROWE on 04/08/212031 Prednisone (Prednisone) 20 Mg Tab, 40 MG PO DAILY Prescribed by: HARLAN ROWE on 06/30/21 1602 Prednisone (Prednisone) 20 Mg Tab, 40 MG PO DAILY Prescribed by: KD CORBETT on 07/25/21 1237 Vit W-Ca,Fe,FA(<1 mg) ( Vitamins) 1 Each Tablet, 1 EACH PO DAILY, (Reported) Entered as Reported by: NAKIA GOMEZ on 01/21/21 0533 Tramadol HCl (Tramadol HCl) 50 Mg Tablet, 50 MG PO Q4H PRN for PAIN- BREAKTHROUGH, (Reported) Entered as Reported by: NAKIA GOMEZ on 01/21/21 05 Tramadol HCl (Tramadol HCl) 50 Mg Tablet, 50 MG PO Q6H PRN for PAIN Prescribed by: STACEY EVANGELISTA on 08/11/21 181 Review of Systems Constitutional: no symptoms reported Control/STD Prophylaxis: Depo Provera Musculoskeletal: see HPI Skin: no symptoms reported Psychiatric/Neurological: No Symptoms Reported Past Ykodtld-Hbwqrv-Afbhyf Hx Patient Social History Use of E-Cig and/or Vaping dev: Yes E-Cig or Vaping type used: Nicotine Use of E-Cig and/or Vaping Ha: Current Everyday User Substance use?: No Alcohol Use?: No Immunizations Up To Date Tetanus Booster (TDap): Unknown First/Initial COVID19 Vaccinat: MARCH Second COVID19 Vaccination Ernesto: MARCH COVID19 Vaccine 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[employer] Seasonal Allergies Seasonal Allergies: No Past Medical History Surgeries: Yes Adenoidectomy, Tonsillectomy Respiratory: No Cardiac: No Neurological: Yes Neuropathy Female Reproductive Disorders: Denies Genitourinary: No Gastrointestinal: No Musculoskeletal: No Endocrine: No HEENT: Yes (S/P TONSILLECTOMY) Tonsilitis Cancer: No Psychosocial: Yes Anxiety, Depression Integumentary: No Blood Disorders: No Family Medical History No Pertinent Family Hx Physical Exam Vital Signs Vital Signs - First Documented 08/11/21 17:41 Temp 36.0 Pulse 100 Resp 18 B/P (MAP) 121/85 (97) Pulse Ox 98 O2 Delivery Room Air Capillary Refill : Less Than 3 Seconds Height, Weight, BMI Height: 5'5.00" Weight: 205lbs. oz. 92.132170wa; 36.00 BMI Method:Stated General Appearance: WD/WN, no apparent distress, other (AMBULATES IN ON HER OWN, WITH SLIGHT LIMP ON LEFT) Hips: left hip normal inspection Legs: left leg normal inspection Knees: left knee other (MILD TENDERNESS TO INFERIOR AND MEDIAL AND LATERAL ASPECTS OF LEFT KNEE. NO SWELLING, FULL ROM, NO GROSS LIGAMENT LAXITY. NO EXTERNAL EVIDENCE OF TRAUMA. MOTOR/SENSORY/VASCULAR INTACT. 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, no motor/sensory deficits, alert, normal mood/affect, oriented x 3 Skin: normal color, warm/dry; No ecchymosis Procedures/Interventions Splinting and Joint Reduction : Rogelio wrap: Yes Immobilizers: 19 inch Knee Progress/Results/Core Measures Results/Orders My Orders Orders - STACEY EVANGELISTA DO Knee, Left, 3 Views (08/11/21 17:53) Rogelio Bandage (08/11/21 18:17) Knee Immobilizer (08/11/21 18:17) Vital Signs/I&O 08/11/21 17:41 Temp 36.0 Pulse 100 Resp 18 B/P (MAP) 121/85 (97) Pulse Ox 98 O2 Delivery Room Air Blood Pressure Mean: 97 Diagnostic Imaging Comments LEFT KNEE XRAYS--PER RADIOLOGIST REPORT AT 1835 FINDINGS: Three views of the left knee joint demonstrate no acute fracture or dislocation. No focal osseous lesion is seen. No significant joint effusion is seen. The surrounding soft tissue structures are unremarkable. There are no radiopaque foreign body. IMPRESSION: No acute fractures or dislocations of the left knee joint. Reviewed: Reviewed by Me Departure Impression Primary Impression: Left knee pain Disposition: 01 HOME, SELF-CARE Condition: Stable Departure-Patient Inst. Decision time for Depature: 18:14 Referrals: [facility] (PCP/Family) Primary Care Physician JOHN PAUL CAMPBELL MD Patient Instructions: How to Use an Elastic Bandage, Knee Immobilizer (DC), Knee Pain (DC) Add. Discharge Instructions: ROGELIO WRAP AND KNEE IMMOBILIZER AT ALL TIMES ICE TO AREA AT 20 MINUTE INTERVALS ELEVATE LEG MUCH POSSIBLE FOLLOW UP WITH DR. CAMPBELL ( ORTHOPEDIC SURGEON ) IN 1 WEEK FOR FURTHER CARE All discharge instructions reviewed with patient and/or family. Voiced understanding. Scripts Tramadol HCl (Tramadol HCl) 50 Mg Tablet 50 MG PO Q6H PRN for PAIN for 3 Days, #15 TAB 0 Refills Prov: STACEY EVANGELISTA DO 08/11/21 STACEY EVANGELISTA DO Aug 11, 2021 18:15
[2021-08-11] MEDS ORDERED: TRM50T PO ×2 (18:16→19:21)
--- NOTE | 2021-08-11 18:22 | Diagnostic Imaging Report ---
INDICATION: Left knee pain status post injury. COMPARISON: None. FINDINGS: Three views of the left knee joint demonstrate no acute fracture or dislocation. No focal osseous lesion is seen. No significant joint effusion is seen. The surrounding soft tissue structures are unremarkable. There are no radiopaque foreign body. IMPRESSION: No acute fractures or dislocations of the left knee joint. Dictated by: Dictated on workstation # [id number]
[2021-08-11 19:00] VITALS: BP 121/85
== END 2021-08-11 19:00 | disposition home or self-care (01) ==
LOC: EDUNIT# 17:37 → ER 17:39
DX: M25.562 Pain in left knee (principal); F17.290 Nicotine dependence, other tobacco product, uncomplicated
CPT/HCPCS: 73562; 99283; L1830

== ENCOUNTER 2021-08-17 10:28 | Emergency (ER) | payer MEDICAID ==
[~2021-08-17] VITALS: Ht 162.5 cm; Wt 95.2 kg
[2021-08-17] MEDS ORDERED: ORPHENADRINE 60 MG/2 ML (NORFLEX) AMP (ED ONLY) IM ONE (11:00)
[2021-08-17] MEDS ORDERED: KETOROLAC 60 MG/2 ML VIAL IM ONE (11:00)
[2021-08-17] MEDS ORDERED: NAPR-1071 PO (11:01)
[2021-08-17] MEDS ORDERED: METH-732 PO (11:01)
--- NOTE | 2021-08-17 11:02 | ED Fall/Injury ---
General Chief Complaint: Trauma-Non Activation Stated Complaint: BACK PAIN Nursing Triage Note: fell last night around 1230 down five wooden stairs hitting the lumbar region of her back to the sacrum. states the pain is transverse in the lowest area of her back. Source: patient Exam Limitations: no limitations History of Present Illness Date Seen by Provider: Aug 17, 2021 Time Seen by Provider: 10:58 Initial Comments To ER with midline low back pain that does not radiate down either leg. This began when she fell down several stairs yesterday. Location Injury Occurred: HOME Occurred: yesterday Severity: moderate Injuries/Pain Location: back Context: slipped Loss of Consciousness: no loss of consciousness Associated Symptoms (Fall): Denies Symptoms Allergies and Home Medications Allergies Coded Allergies: No Known Drug Allergies (Unverified , 07/15/15) Patient Home Medication List Home Medication List Reviewed: Yes Amoxicillin (Amoxicillin) 500 Mg Tablet, 500 MG PO TID Prescribed by: HARLAN ROWE on 06/30/21 1602 Cyclobenzaprine HCl (Cyclobenzaprine HCl) 10 Mg Tablet, 10 MG PO TID PRN for SPASMS Prescribed by: KD CORBETT on 07/25/21 1237 Hydrocodone/Acetaminophen (Hydrocodone-Acetamin 5-325 mg) 1 Each Tablet, 1 TAB PO Q4H PRN for PAIN-MODERATE (5-7) Prescribed by: HARLAN ROWE on 04/08/21 2033 Hydrocodone/Acetaminophen (Hydrocodone-Acetamin 5-325 mg) 1 Each Tablet, 1 TAB PO Q4H PRN for PAIN-MODERATE (5-7) Prescribed by: HARLAN ROWE on 06/30/21 1602 Hydrocodone/Acetaminophen (Hydrocodone-Acetamin 5-325 mg) 1 Each Tablet, 1 TAB PO Q4H PRN for PAIN-BREAKTHROUGH Prescribed by: KD CORBETT on 07/25/21 1238 Ibuprofen (Ibu) 600 Mg Tablet, 600 MG PO Q6H Prescribed by: SANDRA OSUNA on 01/22/21 0746 Methocarbamol (Methocarbamol) 750 Mg Tablet, 750 MG PO Q6-8HR Prescribed by: HARLAN ROWE on 08/17/21 1101 Naproxen (Naprosyn) 500 Mg Tablet, 500 MG PO BID PRN for PAIN-MODERATE (5-7) Prescribed by: HARLAN ROWE on 08/17/21 1101 Prednisone (Prednisone) 20 Mg Tab, 40 MG PO DAILY Prescribed by: HARLAN ROWE on 04/08/212031 Prednisone (Prednisone) 20 Mg Tab, 40 MG PO DAILY Prescribed by: HARLAN ROWE on 06/30/21 1602 Prednisone (Prednisone) 20 Mg Tab, 40 MG PO DAILY Prescribed by: KD CORBETT on 07/25/21 1237 Vit W-Ca,Fe,FA(<1 mg) ( Vitamins) 1 Each Tablet, 1 EACH PO DAILY, (Reported) Entered as Reported by: NAKIA GOMEZ on 01/21/21 0533 Tramadol HCl (Tramadol HCl) 50 Mg Tablet, 50 MG PO Q4H PRN for PAIN- BREAKTHROUGH, (Reported) Entered as Reported by: NAKIA GOMEZ on 01/21/21 0533 Tramadol HCl (Tramadol HCl) 50 Mg Tablet, 50 MG PO Q6H PRN for PAIN Prescribed by: STACEY EVANGELISTA on 08/11/211921 Review of Systems Review of Systems Constitutional: see HPI Eyes: No Symptoms Reported Ears, Nose, Mouth, Throat: no symptoms reported Respiratory: no symptoms reported Cardiovascular: no symptoms reported Genitourinary: no symptoms reported Musculoskeletal: see HPI, back pain Skin: no symptoms reported Psychiatric/Neurological: No Symptoms Reported Past Ikwyhxb-Lnbgrg-Kdrdgf Hx Patient Social History Tobacco Use?: No Use of E-Cig and/or Vaping dev: No Substance use?: No Alcohol Use?: No Pt feels they are or have been: No Immunizations Up To Date Tetanus Booster (TDap): Unknown First/Initial COVID19 Vaccinat: MARCH 2021 Second COVID19 Vaccination Ernesto: MARCH 2021 Seasonal Allergies Seasonal Allergies: No Past Medical History Surgeries: Yes Adenoidectomy, Tonsillectomy Respiratory: No Cardiac: No Neurological: Yes Neuropathy Last Menstrual Period: Aug 14, 2021 Female Reproductive Disorders: Denies Genitourinary: No Gastrointestinal: No Musculoskeletal: No Endocrine: No HEENT: Yes (S/P TONSILLECTOMY) Tonsilitis Cancer: No Psychosocial: Yes Anxiety, Depression Integumentary: No Blood Disorders: No Family Medical History No Pertinent Family Hx Physical Exam Vital Signs Vital Signs - First Documented 08/17/21 10:40 Temp 36.5 Pulse 108 Resp 18 B/P (MAP) 169/103 (125) Pulse Ox 100 O2 Delivery Room Air Capillary Refill : Less Than 3 Seconds Height, Weight, BMI Height: 5'5.00" Weight: 205lbs. oz. 92.724045cx; 36.00 BMI Method:Stated General Appearance: WD/WN, no apparent distress Neck: non-tender, full range of motion Respiratory: normal breath sounds, no respiratory distress, no accessory muscle use Gastrointestinal: normal bowel sounds, non tender, soft Back: other (She does have a hyperpigmented reticular rash to bilateral flanks which she states has been there for 2 years after using heating pad. Looks to be Erythema ab igne type rash.) Extremities: normal range of motion, non-tender Neurologic/Psychiatric: alert, normal mood/affect, oriented x 3 Skin: normal color, warm/dry [place] Coma Score Best Eye Response: (4) Open Spontaneously Best Verbal Response: (5) Oriented Best Motor Response: (6) Obeys Commands Rosamaria Total: 15 Progress/Results/Core Measures Results/Orders My Orders Orders - HARLAN ROWE APRN Lumbar Spine - 2-3 Views (08/17/21 10:57) Ketorolac Injection (Toradol Injection) (08/17/21 11:00) Orphenadrine Inj (Ed Only) (Norflex Inje (08/17/21 11:00) Medications Given in ED Current Medications Medications Dose Ordered Sig/Laurence Route Start Time Stop Time Status Last Admin Dose Admin Ketorolac Tromethamine 60 mg ONCE ONCE IM 08/17/21 11:00 08/17/21 11:01 DC 08/17/21 11:28 60 MG Orphenadrine Citrate 60 mg ONCE ONCE IM 08/17/21 11:00 08/17/21 11:01 DC 08/17/21 11:27 60 MG Vital Signs/I&O 08/17/21 08/17/21 10:40 10:41 Temp 36.5 36.5 Pulse 108 108 Resp 18 18 B/P (MAP) 169/103 (125) 169/103 (125) Pulse Ox 100 O2 Delivery Room Air Room Air Blood Pressure Mean: 125 Departure Impression Primary Impression: Low back pain Disposition: 01 HOME, SELF-CARE Condition: Stable Departure-Patient Inst. Decision time for Depature: 11:00 Referrals: [facility] (PCP/Family) Primary Care Physician Patient Instructions: Low Back Pain ED Add. Discharge Instructions: 1. Return to ER for any concerns 2. Medication as directed 3. Follow-up with your doctor next week All discharge instructions reviewed with patient and/or family. Voiced understanding. Scripts Methocarbamol (Methocarbamol) 750 Mg Tablet 750 MG PO Q6-8HR for Back Pain, #14 TAB Prov: HARLAN ROWE APRN 08/17/21 Naproxen (Naprosyn) 500 Mg Tablet 500 MG PO BID PRN for PAIN-MODERATE (5-7), #30 TAB 0 Refills Prov: HARLAN ROWE APRN 08/17/21 HARLAN ROWE APRN Aug 17, 2021 11:02
--- NOTE | 2021-08-17 11:26 | Diagnostic Imaging Report ---
Indication: Fall with back pain. FINDINGS: 3 views. Lumbosacral spine shows good alignment. Body height is well-maintained. Disc spaces are well-preserved. There is minimal hypertrophic lipping of the endplates anteriorly from L1 through L4. Facets show good alignment without hypertrophic change. No pars defect. IMPRESSION: 1. No acute abnormalities demonstrated. 2. Minimal degenerative disc changes. Dictated by: Dictated on workstation # [id number]
[2021-08-17 11:48] VITALS: BP 123/92
== END 2021-08-17 11:47 | disposition home or self-care (01) ==
LOC: EDUNIT# 10:28 → ER 10:29
DX: M54.50 Low back pain, unspecified (principal)
CPT/HCPCS: 72100

== ENCOUNTER 2021-11-06 17:06 | Emergency (ER) | payer MEDICAID ==
[~2021-11-06] VITALS: Ht 162 cm; Wt 95.7 kg
[~2021-11-06 17:06] MED LIST changes: +METH-732 PO; +NAPR-1071 PO
[2021-11-06] MEDS ORDERED: IBUPROFEN 800 MG (MOTRIN) TAB PO ONE (17:15)
--- NOTE | 2021-11-06 17:18 | ED Fall/Injury ---
General Stated Complaint: R ELBOW PAIN Source: patient Exam Limitations: no limitations History of Present Illness Date Seen by Provider: Nov 06, 2021 Time Seen by Provider: 16:55 Initial Comments The patient presents to the ER by private conveyance with chief complaint of 15 to 30 minutes prior to arrival she heard her child fall on the front stoop. She ran out after them slid on the same patch of ice and landed on her low back as well as her right elbow where she is having pain on the radial side proximally as well as some pain in the wrist on the right side. No numbness or tingling. No previous history of injury or surgery there. Not on blood thinners. She did not strike her head nor did she lose consciousness. She is not having significant pain in her low back loss of control of bowel or bladder numbness weakness or inability to walk Allergies and Home Medications Allergies Coded Allergies: No Known Drug Allergies (Unverified , 07/15/15) Patient Home Medication List Home Medication List Reviewed: Yes Amoxicillin (Amoxicillin) 500 Mg Tablet, 500 MG PO TID Prescribed by: HARLAN ROWE on 06/30/21 1602 Cyclobenzaprine HCl (Cyclobenzaprine HCl) 10 Mg Tablet, 10 MG PO TID PRN for SPASMS Prescribed by: KD CORBETT on 07/25/21 1237 Hydrocodone/Acetaminophen (Hydrocodone-Acetamin 5-325 mg) 1 Each Tablet, 1 TAB PO Q4H PRN for PAIN-MODERATE (5-7) Prescribed by: HARLAN ROWE on 04/08/212032 Hydrocodone/Acetaminophen (Hydrocodone-Acetamin 5-325 mg) 1 Each Tablet, 1 TAB PO Q4H PRN for PAIN-MODERATE (5-7) Prescribed by: HARLAN ROWE on 06/30/21 1602 Hydrocodone/Acetaminophen (Hydrocodone-Acetamin 5-325 mg) 1 Each Tablet, 1 TAB PO Q4H PRN for PAIN-BREAKTHROUGH Prescribed by: KD CORBETT on 07/25/21 1238 Ibuprofen (Ibu) 600 Mg Tablet, 600 MG PO Q6H Prescribed by: SANDRA OSUNA on 01/22/21 0746 Methocarbamol (Methocarbamol) 750 Mg Tablet, 750 MG PO Q6-8HR Prescribed by: HARLAN ROWE on 08/17/21 1101 Naproxen (Naprosyn) 500 Mg Tablet, 500 MG PO BID PRN for PAIN-MODERATE (5-7) Prescribed by: HARLAN ROWE on 08/17/21 1101 Prednisone (Prednisone) 20 Mg Tab, 40 MG PO DAILY Prescribed by: HARLAN ROWE on 04/08/212031 Prednisone (Prednisone) 20 Mg Tab, 40 MG PO DAILY Prescribed by: HARLAN ROWE on 06/30/21 1602 Prednisone (Prednisone) 20 Mg Tab, 40 MG PO DAILY Prescribed by: KD CORBETT on 07/25/21 1237 Vit W-Ca,Fe,FA(<1 mg) ( Vitamins) 1 Each Tablet, 1 EACH PO DAILY, (Reported) Entered as Reported by: NAKIA GOMEZ on 01/21/21 0533 Tramadol HCl (Tramadol HCl) 50 Mg Tablet, 50 MG PO Q4H PRN for PAIN- BREAKTHROUGH, (Reported) Entered as Reported by: NAKIA GOMEZ on 01/21/21 0533 Tramadol HCl (Tramadol HCl) 50 Mg Tablet, 50 MG PO Q6H PRN for PAIN Prescribed by: STACEY EVANGELISTA on 08/11/211921 Review of Systems Review of Systems Constitutional: No chills, No diaphoresis Eyes: Denies Blindness, Denies Blurred Vision, Denies Drainage Ears, Nose, Mouth, Throat: denies ear pain, denies ear discharge Respiratory: No cough, No short of breath Cardiovascular: No chest pain, No edema Gastrointestinal: No abdominal pain, No nausea, No vomiting Genitourinary: No discharge, No dysuria Musculoskeletal: see HPI, back pain, joint pain All Other Systems Reviewed Negative Unless Noted: Yes Past Tjkebmz-Gzqscp-Rezkgw Hx Patient Social History Tobacco Use?: No Use of E-Cig and/or Vaping dev: Yes E-Cig or Vaping type used: Nicotine Substance use?: No Alcohol Use?: No Immunizations Up To Date Tetanus Booster (TDap): Unknown First/Initial COVID19 Vaccinat: MARCH 2021 Second COVID19 Vaccination Ernesto: MARCH 2021 Seasonal Allergies Seasonal Allergies: No Past Medical History Surgeries: Yes Adenoidectomy, Tonsillectomy Respiratory: No Cardiac: No Neurological: Yes Neuropathy Female Reproductive Disorders: Denies Genitourinary: No Gastrointestinal: No Musculoskeletal: No Endocrine: No HEENT: Yes (S/P TONSILLECTOMY) Tonsilitis Cancer: No Psychosocial: Yes Anxiety, Depression Integumentary: No Blood Disorders: No Family Medical History No Pertinent Family Hx Physical Exam Vital Signs Vital Signs - First Documented 11/06/21 17:15 Temp 36.8 Pulse 115 Resp 16 B/P (MAP) 120/89 (99) Pulse Ox 98 Capillary Refill : Height, Weight, BMI Height: 5'5.00" Weight: 205lbs. oz. 92.760031ng; 36.00 BMI Method:Stated General Appearance: WD/WN, mild distress HEENT: PERRL/EOMI, pharynx normal Neck: full range of motion, supple, normal inspection Cardiovascular: normal peripheral pulses, regular rate, rhythm Respiratory: no respiratory distress, no accessory muscle use Peripheral Pulses: 2+ Radial Pulses (R), 2+ Radial Pulses (L) Extremities: non-tender, other (Left elbow held in flexion splinted against her side. Tenderness along the proximal radial head as well as over the right distal radial head. No tenderness over the anatomic snuffbox. Superficial abrasion 2 x 2 centimeter over the proximal ulnar head on the right side.) Neurologic/Psychiatric: no motor/sensory deficits, alert, normal mood/affect, oriented x 3 Rosamaria Coma Score Best Eye Response: (4) Open Spontaneously Best Verbal Response: (5) Oriented Best Motor Response: (6) Obeys Commands Ewen Total: 15 Progress/Results/Core Measures Results/Orders My Orders Orders - CLAUDIO EDGAR Elbow, Right, 3 Views (11/06/21 17:14) Wrist, Right, 3 Views Or More (11/06/21 17:14) Ibuprofen Tablet (Motrin Tablet) (11/06/21 17:15) Medications Given in ED Current Medications Medications Dose Ordered Sig/Laurence Route Start Time Stop Time Status Last Admin Dose Admin Ibuprofen 800 mg ONCE ONCE PO 11/06/21 17:15 11/06/21 17:16 DC 11/06/21 17:24 800 MG Vital Signs/I&O 11/06/21 17:15 Temp 36.8 Pulse 115 Resp 16 B/P (MAP) 120/89 (99) Pulse Ox 98 Progress Progress Note : Time: 17:17 Progress Note Plain film right elbow right wrist. Ibuprofen 800 mg and ice. Diagnostic Imaging Diagonstic Imaging: Xray Plain Films/CT/US/NM/MRI: elbow (Right) Comments [facility], [place] NAME: ML CURRY [facility] REC#: [id number] PT STATUS: REG ER : 1985 PHYSICIAN: CLAUDIO EDGAR MD ADMIT DATE: 11/06/21/ER Draft Date of Exam:11/06/21 ELBOW, RIGHT, 3 VIEWS INDICATION: Fall on ice. Right elbow pain. FINDINGS: Alignment of the elbow is appropriate. There is a normal anterior humeral and radiocapitellar line. There are no findings of elevation of the fat pad to suggest the presence of a joint effusion. There is no cortical disruption or acute fracture. IMPRESSION: Normal right elbow alignment without findings of fracture or joint effusion. Dictated on workstation # [id number] Dict: 11/06/21 1737 Trans: 11/06/21 1740 [facility] [id number] Interpreted by: TIERNEY PLASCENCIA MD Electronically signed by: Reviewed: Reviewed by Me Diagonstic Imaging: Xray Plain Films/CT/US/NM/MRI: hand (Right wrist) Comments [facility] [place] [place] NAME: ML CURRY [facility] REC#: [id number] PT STATUS: REG ER : 1985 PHYSICIAN: CLAUDIO EDGAR MD ADMIT DATE: 11/06/21/ER Draft Date of Exam:11/06/21 WRIST, RIGHT, 3 VIEWS OR MORE INDICATION: Fall on ice. Wrist pain. COMPARISON: Prior examination of 04/06/2018. FINDINGS: There is no cortical disruption demonstrated of the distal radius or ulna. There is a tiny radiodensity adjacent to the ulnar styloid which is unchanged from the prior exam. Carpals are normally aligned. There is no carpal fracture evident. There is no fracture evident within the visualized portion of the hand. IMPRESSION: Normal alignment of the right wrist without findings of an acute right wrist or hand fracture. Dictated on workstation # [id number] Dict: 11/06/21 1738 Trans: 11/06/21 1741 [facility] [id number] Interpreted by: TIERNEY PLASCENCIA MD Electronically signed by: Reviewed: Reviewed by Me Departure Impression Primary Impression: Fall Qualified Codes: W19.XXXA - Unspecified fall, initial encounter Additional Impressions: Contusion of right wrist, initial encounter Contusion of right elbow, initial encounter Disposition: 01 HOME, SELF-CARE Condition: Stable Departure-Patient Inst. Decision time for Depature: 17:47 Referrals: [facility] [place] (PCP/Family) Primary Care Physician Patient Instructions: Contusion (DC) Add. Discharge Instructions: Ice pack 20 minutes on every 2 hours for the next 2 days while awake to reduce swelling and pain. Keep the wound clean with regular soap and water. Ibuprofen and Tylenol as necessary for pain. You may wear the sling as necessary for the next week. Take the arm out of the sling and move it around periodically throughout the day. If you are still having significant pain or difficulty moving the arm in 7 to 10 days then follow-up with your primary care doctor for reevaluation. Work/School Note: Work Release Form Date Seen in the Emergency Department: Nov 06, 2021 Return to Work: Nov 07, 2021 Restrictions: Need Release from Doctor Other Restrictions Listed Below: May wear sling as necessary for comfort until 11/15/2021. CLAUDIO EDGAR Nov 06, 2021 17:18
--- NOTE | 2021-11-06 17:40 | Diagnostic Imaging Report ---
INDICATION: Fall on ice. Right elbow pain. FINDINGS: Alignment of the elbow is appropriate. There is a normal anterior humeral and radiocapitellar line. There are no findings of elevation of the fat pad to suggest the presence of a joint effusion. There is no cortical disruption or acute fracture. IMPRESSION: Normal right elbow alignment without findings of fracture or joint effusion. Dictated by: Dictated on workstation # [id number]
--- NOTE | 2021-11-06 17:42 | Diagnostic Imaging Report ---
INDICATION: Fall on ice. Wrist pain. COMPARISON: Prior examination of 04/06/2018. FINDINGS: There is no cortical disruption demonstrated of the distal radius or ulna. There is a tiny radiodensity adjacent to the ulnar styloid which is unchanged from the prior exam. Carpals are normally aligned. There is no carpal fracture evident. There is no fracture evident within the visualized portion of the hand. IMPRESSION: Normal alignment of the right wrist without findings of an acute right wrist or hand fracture. Dictated by: Dictated on workstation # [id number]
[2021-11-06 17:53] VITALS: BP 120/89
== END 2021-11-06 17:53 | disposition home or self-care (01) ==
LOC: EDUNIT# 17:06 → ER 17:08
DX: S50.01XA Contusion of right elbow, initial encounter (principal); S60.211A Contusion of right wrist, initial encounter; W00.0XXA Fall on same level due to ice and snow, initial encounter
CPT/HCPCS: 73080; 73110; 99282; A4565

== ENCOUNTER 2022-05-29 15:58 | Emergency (ER) | payer MEDICAID ==
[~2022-05-29] VITALS: Ht 162.6 cm; Wt 108.9 kg
[2022-05-29] MEDS ORDERED: ASPIRIN 81 MG CHEW (CHILDREN'S ASA) PO ONE (17:00)
[2022-05-29 17:25] LABS: BASOPHILS % (AUTO) 0 % (0-10); EOSINOPHILS # (AUTO) 0.1 10^3/uL (0.0-0.3); EOSINOPHILS % (AUTO) 1 % (0-10); HEMATOCRIT 41 % (35-52); HEMOGLOBIN 14.3 g/dL (11.5-16.0); LYMPHOCYTES # (AUTO) 1.8 10^3/uL (1.0-4.0); LYMPHOCYTES % (AUTO) 25 % (12-44); MEAN CORPUSCULAR HEMOGLOBIN 30 pg (25-34); MEAN CORPUSCULAR HGB CONC 35 g/dL (32-36); MEAN CORPUSCULAR VOLUME 84 fL (80-99); MEAN PLATELET VOLUME 9.6 fL (9.0-12.2); MONOCYTES # (AUTO) 0.4 10^3/uL (0.0-1.0); MONOCYTES % (AUTO) 6 % (0-12); NEUTROPHILS # (AUTO) 4.9 10^3/uL (1.8-7.8); NEUTROPHILS % (AUTO) 67 % (42-75); PLATELET COUNT 231 10^3/uL (130-400); WHITE BLOOD COUNT 7.2 10^3/uL (4.3-11.0)
[2022-05-29 17:27] LABS: BILIRUBIN,URINE NEGATIVE (NEGATIVE); CLARITY,URINE CLEAR; COLOR,URINE YELLOW; GLUCOSE, URINE (UA) NEGATIVE (NEGATIVE); KETONES,URINE NEGATIVE (NEGATIVE); LEUKOCYTE ESTERASE ,URINE NEGATIVE (NEGATIVE); NITRITE,URINE NEGATIVE (NEGATIVE); PROTEIN,URINE NEGATIVE (NEGATIVE)
[2022-05-29 17:37] LABS: ALBUMIN 4.4 GM/DL (3.2-4.5); POTASSIUM 3.6 MMOL/L (3.6-5.0)
[2022-05-29 17:38] LABS: CALCIUM 9.3 MG/DL (8.5-10.1)
[2022-05-29 17:38] LABS: BACTERIA,URINE TRACE /HPF; WBC,URINE 0-2 /HPF
[2022-05-29 17:39] LABS: PROTHROMBIN TIME PATIENT 13.6 SEC (12.2-14.7); TOTAL PROTEIN 7.4 GM/DL (6.4-8.2)
[2022-05-29 17:41] LABS: BILIRUBIN,TOTAL 0.6 MG/DL (0.1-1.0)
[2022-05-29 17:43] LABS: CREATININE SERUM 0.87 MG/DL (0.60-1.30)
[2022-05-29 17:46] LABS: MAGNESIUM 1.9 MG/DL (1.6-2.4)
--- NOTE | 2022-05-29 17:51 | ED Back Pain ---
General Chief Complaint: Back Problems Stated Complaint: LOWER BACK PAIN Nursing Triage Note: PT AMB TO ED BY POV WITH C/O LOWER BACK PAIN. 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 PAIN IS PRIMARILY IN LOWER BACK, RADIATES DOWN L LEG. HAS BEEN EXPERIENCING SOME TINGING IN L LEG, NO NUMBNESS. (NICK VARGAS) History of Present Illness Date Seen by Provider: May 29, 2022 Time Seen by Provider: 16:15 Initial Comments 36-year-old female presents for low back and left leg pain that is been present since yesterday. 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 She denies any bowel or bladder incontinence or retention. She has had back pain in the past. She tried Tylenol at ap proximately 10 AM today with no improvement in her symptoms. In addition, the patient reports over the last 3 weeks she has been having left- sided chest pain that radiates into her left shoulder and back. She has had no known cardiac history in the past. Her blood pressure is slightly elevated which she denies having this in the past. She has no associated nausea, vomiting or diaphoresis when the symptoms occur. She is not having the chest pain at present time it occurs randomly every few days, sometimes at night and other times during activity. She has not seen anyone for her symptoms. She does not take ASA. Timing/Duration: 1 Day (for back pain) Severity: Moderate Pain/Injury Location: Back Radiation: Buttocks (left), Lower Legs (left), Upper Legs (left) Associated Symptoms: muscle spasms; No numbness in legs/feet; tingling in legs/feet; No sensory/motor loss; lower back pain; No loss of bladder control, No loss of bowel control (NICK VARGAS) Allergies and Home Medications Allergies Coded Allergies: No Known Drug Allergies (Unverified , 07/15/15) Patient Home Medication List Home Medication List Reviewed: Yes (NICK VARGAS) Amoxicillin (Amoxicillin) 500 Mg Tablet, 500 MG PO TID Prescribed by: HARLAN ROWE on 06/30/21 1602 Cyclobenzaprine HCl (Cyclobenzaprine HCl) 10 Mg Tablet, 10 MG PO TID PRN for SPASMS Prescribed by: KD CORBETT on 07/25/21 1237 Cyclobenzaprine HCl (Cyclobenzaprine HCl) 10 Mg Tablet, 10 MG PO Q8H PRN for SPASMS Prescribed by: NICK VARGAS on 05/29/221806 Hydrocodone/Acetaminophen (Hydrocodone-Acetamin 5-325 mg) 1 Each Tablet, 1 TAB PO Q4H PRN for PAIN-MODERATE (5-7) Prescribed by: HARLAN ROWE on 04/08/212032 Hydrocodone/Acetaminophen (Hydrocodone-Acetamin 5-325 mg) 1 Each Tablet, 1 TAB PO Q4H PRN for PAIN-MODERATE (5-7) Prescribed by: HARLAN ROWE on 06/30/21 160 Hydrocodone/Acetaminophen (Hydrocodone-Acetamin 5-325 mg) 1 Each Tablet, 1 TAB PO Q4H PRN for PAIN-BREAKTHROUGH Prescribed by: KD CORBETT on 07/25/21 1238 Ibuprofen (Ibu) 600 Mg Tablet, 600 MG PO Q6H Prescribed by: SANDRA OSUNA on 01/22/21 0746 Methocarbamol (Methocarbamol) 750 Mg Tablet, 750 MG PO Q6-8HR Prescribed by: HARLAN ROWE on 08/17/21 110 Naproxen (Naprosyn) 500 Mg Tablet, 500 MG PO BID PRN for PAIN-MODERATE (5-7) Prescribed by: HARLAN ROWE on 08/17/21 110 Prednisone (Prednisone) 20 Mg Tab, 40 MG PO DAILY Prescribed by: HARLAN ROWE on 04/08/212031 Prednisone (Prednisone) 20 Mg Tab, 40 MG PO DAILY Prescribed by: HARLAN ROWE on 06/30/21 160 Prednisone (Prednisone) 20 Mg Tab, 40 MG PO DAILY Prescribed by: KD CORBETT on 07/25/21 123 Prednisone (Prednisone) 20 Mg Tab, 40 MG PO DAILY Prescribed by: NICK VARGAS on 05/29/221806 Vit W-Ca,Fe,FA(<1 mg) ( Vitamins) 1 Each Tablet, 1 EACH PO DAILY, (Reported) Entered as Reported by: NAKIA GOMEZ on 01/21/21 0533 Tramadol HCl (Tramadol HCl) 50 Mg Tablet, 50 MG PO Q4H PRN for PAIN- BREAKTHROUGH, (Reported) Entered as Reported by: NAKIA Alicea JASON on 01/21/21 0533 Tramadol HCl (Tramadol HCl) 50 Mg Tablet, 50 MG PO Q6H PRN for PAIN Prescribed by: STACEY EVANGELISTA on 08/11/211921 Review of Systems Constitutional: no symptoms reported, see HPI Respiratory: no symptoms reported, see HPI; No dyspnea on exertion, No short of breath Cardiovascular: see HPI, chest pain (Intermittently over the last 3 weeks, none at the present time.) Musculoskeletal: see HPI, back pain (NICK VARGAS) All Other Systems Reviewed Negative Unless Noted: Yes (NICK VARGAS) Past Gsyxogo-Ezzojz-Xvcsug Hx Patient Social History Use of E-Cig and/or Vaping dev: Yes E-Cig or Vaping type used: Nicotine Use of E-Cig and/or Vaping Ha: Current Everyday User Substance use?: No Alcohol Use?: No Pt feels they are or have been: No (NICK VARGAS) Immunizations Up To Date Tetanus Booster (TDap): Unknown Influenza Vaccine Up-to-Date: No; Not Current First/Initial COVID19 Vaccinat: MARCH 2021 Second COVID19 Vaccination Ernesto: MARCH 2021 Third COVID19 Vaccination Date: MARCH 2021 COVID19 Vaccine 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[employer] (NICK VARGAS) Seasonal Allergies Seasonal Allergies: No (NICK VARGAS) Past Medical History Surgeries: Yes Adenoidectomy, Tonsillectomy Respiratory: No Cardiac: No Neurological: Yes Neuropathy Female Reproductive Disorders: Denies Genitourinary: No Gastrointestinal: No Musculoskeletal: No Endocrine: No HEENT: Yes (S/P TONSILLECTOMY) Tonsilitis Cancer: No Psychosocial: Yes Anxiety, Depression Integumentary: No Blood Disorders: No (NICK VARGAS) Family Medical History Reviewed Nursing Family Hx (NICK VARGAS) No Pertinent Family Hx (NICK VARGAS) Physical Exam Vital Signs Vital Signs - First Documented 05/29/22 16:15 Temp 36.3 Pulse 96 Resp 16 B/P (MAP) 122/90 (101) Pulse Ox 99 O2 Delivery Room Air (KD CHENG MD) Vital Signs Capillary Refill : (NICK VARGAS) Height, Weight, BMI Height: 5'5.00" Weight: 205lbs. oz. 92.988963pq; 41.00 BMI Method:Stated General Appearance: No Apparent Distress, WD/WN Neck: Full Range of Motion, Normal Inspection, Non Tender, Supple Cardiovascular: Regular Rate, Rhythm, No Edema, No Murmur, Normal Peripheral Pulses, Other (No palpable pain to the chest) Respiratory: Chest Non Tender, Lungs Clear, Normal Breath Sounds, No Accessory Muscle Use, No Respiratory Distress Gastrointestinal: Normal Bowel Sounds, No Pulsatile Mass, Non Tender, Soft Extremity: Normal Capillary Refill, Normal Inspection, Normal Range of Motion, Non Tender, No Calf Tenderness, No Pedal Edema Neurologic/Psychiatric: Alert, Oriented x3, No Motor/Sensory Deficits, Normal Mood/Affect Skin: Normal Color, Warm/Dry (NICK VARGAS) Progress/Results/Core Measures Results/Orders Lab Results Laboratory Tests Test 05/29/22 17:15 05/29/22 17:19 Range/Units White Blood Count 7.2 4.3-11.0 10^3/uL Red Blood Count 4.85 3.80-5.11 10^6/uL Hemoglobin 14.3 11.5-16.0 g/dL Hematocrit 41 35-52 % Mean Corpuscular Volume 84 80-99 fL Mean Corpuscular Hemoglobin 30 25-34 pg Mean Corpuscular Hemoglobin Concent 35 32-36 g/dL Red Cell Distribution Width 12.9 10.0-14.5 % Platelet Count 231 130-400 10^3/uL Mean Platelet Volume 9.6 9.0-12.2 fL Immature Granulocyte % (Auto) 0 % Neutrophils (%) (Auto) 67 42-75 % Lymphocytes (%) (Auto) 25 12-44 % Monocytes (%) (Auto) 6 0-12 % Eosinophils (%) (Auto) 1 0-10 % Basophils (%) (Auto) 0 0-10 % Neutrophils # (Auto) 4.9 1.8-7.8 10^3/uL Lymphocytes # (Auto) 1.8 1.0-4.0 10^3/uL Monocytes # (Auto) 0.4 0.0-1.0 10^3/uL Eosinophils # (Auto) 0.1 0.0-0.3 10^3/uL Basophils # (Auto) 0.0 0.0-0.1 10^3/uL Immature Granulocyte # (Auto) 0.0 0.0-0.1 10^3/uL Prothrombin Time 13.6 12.2-14.7 SEC INR Comment 1.0 0.8-1.4 Activated Partial Thromboplast Time 30 24-35 SEC Sodium Level 138 135-145 MMOL/L Potassium Level 3.6 3.6-5.0 MMOL/L Chloride Level 107 98-107 MMOL/L Carbon Dioxide Level 19 L 21-32 MMOL/L Anion Gap 12 5-14 MMOL/L Blood Urea Nitrogen 11 7-18 MG/DL Creatinine 0.87 0.60-1.30 MG/DL Estimat Glomerular Filtration Rate 88 BUN/Creatinine Ratio 13 Glucose Level 94 70-105 MG/DL Calcium Level 9.3 8.5-10.1 MG/DL Corrected Calcium 9.0 8.5-10.1 MG/DL Magnesium Level 1.9 1.6-2.4 MG/DL Total Bilirubin 0.6 0.1-1.0 MG/DL Aspartate Amino Transf (AST/SGOT) 13 5-34 U/L Alanine Aminotransferase (ALT/SGPT) 20 0-55 U/L Alkaline Phosphatase 47 40-136 U/L Myoglobin 26.6 10.0-92.0 NG/ML Troponin I < 0.028 <0.028 NG/ML Total Protein 7.4 6.4-8.2 GM/DL Albumin 4.4 3.2-4.5 GM/DL Urine Color YELLOW Urine Clarity CLEAR Urine pH 6.0 5-9 Urine Specific [place] 1.025 H 1.016-1.022 Urine Protein NEGATIVE NEGATIVE Urine Glucose (UA) NEGATIVE NEGATIVE Urine Ketones NEGATIVE NEGATIVE Urine Nitrite NEGATIVE NEGATIVE Urine Bilirubin NEGATIVE NEGATIVE Urine Urobilinogen 0.2 < = 1.0 MG/DL Urine Leukocyte Esterase NEGATIVE NEGATIVE Urine RBC (Auto) NEGATIVE NEGATIVE Urine RBC NONE /HPF Urine WBC 0-2 /HPF Urine Squamous Epithelial Cells 2-5 /HPF Urine Crystals NONE /LPF Urine Bacteria TRACE /HPF Urine Casts NONE /LPF Urine Mucus SMALL H /LPF Urine Culture Indicated NO (KD CHENG MD) Vital Signs/I&O 05/29/22 05/29/22 16:15 18:25 Temp 36.3 Pulse 96 75 Resp 16 12 B/P (MAP) 122/90 (101) 116/83 Pulse Ox 99 99 O2 Delivery Room Air Room Air (KD CHENG MD) Blood Pressure Mean: 101 Progress Progress Note : Time: 16:15 Progress Note Patient seen and evaluated, will obtain labs, EKG, chest x-ray and x-ray of the lumbar spine, aspirin 324 mg orally and continue to monitor [address] elevation. Awaiting x-rays. 1805 Labs normal, symptoms improving. No chest pain during visit. Discharge instructions and return precautions reviewed with her. Stressed importance of primary care provider. (NICK VARGAS) Initial ECG Impression Date: May 29, 2022 Initial ECG Impression Time: 17:07 Initial ECG Rate: 76 Initial ECG Rhythm: Normal Sinus Initial ECG Intervals: Normal Initial ECG Intervals MI 148, QRS D 87, QT 353, QTc 383. [place] P 42, RR 29, T 36. Initial ECG Impression: Normal Initial ECG Comparisson: No Previous ECG Available (NICK VARGAS) Diagnostic Imaging Diagonstic Imaging: Xray Plain Films/CT/US/NM/MRI: other (back) Comments NAME: ML [facility] REC#: [id number] PT STATUS: REG ER : 1985 PHYSICIAN: NICK VARGAS ADMIT DATE: 05/29/22/ER Draft Date of Exam:05/29/22 LUMBAR SPINE - 2-3 VIEWS INDICATION: Low back pain. EXAMINATION: AP and lateral views of the lumbar spine were obtained. FINDINGS: Lumbar vertebrae are normal in height and alignment. There is no fracture or subluxation. There is mild osteophyte formation at L2 and L4. IMPRESSION: Mild degenerative findings in the lumbar spine with no acute appearing bony abnormality. Dictated on workstation # [id number] Dict: 05/29/221743 Trans: 05/29/221751 [facility] [phone] Interpreted by: KEERTHI RODAS MD Electronically signed by: Reviewed: Reviewed by Me Diagonstic Imaging: Xray Plain Films/CT/US/NM/MRI: chest Comments NAME: ML [facility] REC#: [id number] PT STATUS: REG ER : 1985 PHYSICIAN: NICK VARGAS ADMIT DATE: 05/29/22/ER Draft Date of Exam:05/29/22 CHEST 1 VIEW, AP/PA ONLY INDICATION: Chest pain x 3 weeks. EXAMINATION: Frontal chest was obtained at 5:39 p.m. COMPARISON: 02/23/2018. Heart and mediastinal silhouette are normal in appearance. The lungs are clear. There is no pneumothorax or pleural fluid. IMPRESSION: Negative chest. Dictated on workstation # [id number] Dict: 05/29/22 1746 Trans: 05/29/22 1754 [facility] [phone] Interpreted by: KEERTHI RODAS MD Electronically signed by: Reviewed: Reviewed by Me (NICK VARGAS) Departure Impression Primary Impression: Sciatica Qualified Codes: M54.32 - Sciatica, left side Additional Impressions: Lumbar back pain Chest pain Qualified Codes: R07.9 - Chest pain, unspecified Strain of lumbar paraspinal muscle Qualified Codes: S39.012A - Strain of muscle, fascia and tendon of lower back, initial encounter Disposition: HOME, SELF-CARE Condition: Improved Departure-Patient Inst. Decision time for Depature: 18:05 (NICK VARGAS) Referrals: [facility] [place] (PCP/Family) Primary Care Physician Patient Instructions: Back Muscle Strain (DC), Sciatica (DC), Chest Pain (DC) Add. Discharge Instructions: Take aspirin 81 mg 1 tablet daily. Establish care with a primary care provider at our [facility] and follow-up there. Take prednisone as prescribed for the back pain. Alternate between ibuprofen 600 mg and Tylenol 650 mg every 4 hours for pain. Use the Flexeril for muscle spasms. Return to the emergency department for new, urgent healthcare problems. All discharge instructions reviewed with patient and/or family. Voiced understanding. Scripts Prednisone (Prednisone) 20 Mg Tab 40 MG PO DAILY, #6 TAB 0 Refills Prov: NICK VARGAS 05/29/22 Cyclobenzaprine HCl (Cyclobenzaprine HCl) 10 Mg Tablet 10 MG PO Q8H PRN for SPASMS, #15 TAB 0 Refills Prov: NICK VARAGS 9/11/22 ATTENDING PHYSICIAN NOTE: I was physically present as attending physician in the emergency department during the care of this patient, but I was not directly involved in the decision making or delivery of care for this patient. (KD CHENG MD) NICK VARGAS May 29, 2022 17:51 KD CHENG MD Jun 01, 2022 12:03
[2022-05-29] MEDS ORDERED: PRD20T PO ×2 (17:54→18:07)
[2022-05-29] MEDS ORDERED: CYCL10TA25 PO ×2 (17:54→18:07)
--- NOTE | 2022-05-29 17:55 | Diagnostic Imaging Report ---
INDICATION: Chest pain x 3 weeks. EXAMINATION: Frontal chest was obtained at 5:39 p.m. COMPARISON: 02/23/2018. Heart and mediastinal silhouette are normal in appearance. The lungs are clear. There is no pneumothorax or pleural fluid. IMPRESSION: Negative chest. Dictated by: Dictated on workstation # [id number]
[2022-05-29 18:25] VITALS: BP 116/83
== END 2022-05-29 18:20 | disposition home or self-care (01) ==
LOC: EDUNIT# 15:58 → ER 16:01
DX: S39.012A Strain of muscle, fascia and tendon of lower back, initial encounter (principal); M54.42 Lumbago with sciatica, left side; R07.89 Other chest pain; F17.290 Nicotine dependence, other tobacco product, uncomplicated; X50.1XXA Overexertion from prolonged static or awkward postures, initial encounter
CPT/HCPCS: 36415; 71045; 72100; 80053; 81000; 83735; 83874; 84484; 84703; 85025; 85610; 85730; 93005; 93041

== ENCOUNTER 2022-09-01 12:21 | Emergency (ER) | payer MEDICAID ==
[~2022-09-01] VITALS: Ht 165 cm; Wt 98.0 kg
[2022-09-01] MEDS ORDERED: KETOROLAC 15 MG/ML VIAL IM ONE (15:00)
[2022-09-01] MEDS ORDERED: KETO10TA PO (15:02)
[2022-09-01] MEDS ORDERED: METH-732 PO (15:02)
--- NOTE | 2022-09-01 15:02 | ED Back Pain ---
General Chief Complaint: Back Problems Stated Complaint: LOWER BACK AND RT SIDE PAIN Nursing Triage Note: PT STATES SHE WAS CLEANING YESTERDAY AND THEN AFTERNOON LOWER BACK WAS HURTING ON THE RT SIDE DOWN TO HER FOOT. STRETCHING MADE IT WORSE. THIS MORNING PAIN MADE HER FALL DOWN, NUMBNESS IN RT LEG Source of Information: Patient Exam Limitations: No Limitations History of Present Illness Date Seen by Provider: Sep 01, 2022 Time Seen by Provider: 14:55 Initial Comments Patient is a 36-year-old female who presents to the emergency department with right lower back pain that began yesterday after she spent most of the day rearranging her living room and cleaning. She states the pain is radiating down the posterior aspect of her right leg. She states she has had similar symptoms in the past. States the pain is worse with sitting, bending, or twisting at the waist. Denies any urinary symptoms. Denies any fever. She has not taken anything other than a dose of Tylenol earlier today for the symptoms. States she is currently on the Depo-Provera shot and denies any possibility of . Allergies and Home Medications Allergies Coded Allergies: No Known Drug Allergies (Unverified , 07/15/15) Patient Home Medication List Home Medication List Reviewed: Yes Amoxicillin (Amoxicillin) 500 Mg Tablet, 500 MG PO TID Prescribed by: HARLAN ROWE on 06/30/211601 Cyclobenzaprine HCl (Cyclobenzaprine HCl) 10 Mg Tablet, 10 MG PO TID PRN for SPASMS Prescribed by: KD CORBETT on 07/25/21 1237 Cyclobenzaprine HCl (Cyclobenzaprine HCl) 10 Mg Tablet, 10 MG PO Q8H PRN for SPASMS Prescribed by: NICK VARGAS on 05/29/22 180 Hydrocodone/Acetaminophen (Hydrocodone-Acetamin 5-325 mg) 1 Each Tablet, 1 TAB PO Q4H PRN for PAIN-MODERATE (5-7) Prescribed by: HARLAN ROWE on 04/08/212032 Hydrocodone/Acetaminophen (Hydrocodone-Acetamin 5-325 mg) 1 Each Tablet, 1 TAB PO Q4H PRN for PAIN-MODERATE (5-7) Prescribed by: HARLAN ROWE on 06/30/21 160 Hydrocodone/Acetaminophen (Hydrocodone-Acetamin 5-325 mg) 1 Each Tablet, 1 TAB PO Q4H PRN for PAIN-BREAKTHROUGH Prescribed by: KD CORBETT on 07/25/21 1238 Ibuprofen (Ibu) 600 Mg Tablet, 600 MG PO Q6H Prescribed by: SANDRA OSUNA on 01/22/21 0746 Methocarbamol (Methocarbamol) 750 Mg Tablet, 750 MG PO Q6-8HR Prescribed by: HARLAN ROWE on 08/17/21 110 Naproxen (Naprosyn) 500 Mg Tablet, 500 MG PO BID PRN for PAIN-MODERATE (5-7) Prescribed by: HARLAN ROWE on 08/17/21 110 Prednisone (Prednisone) 20 Mg Tab, 40 MG PO DAILY Prescribed by: HARLAN ROWE on 04/08/212031 Prednisone (Prednisone) 20 Mg Tab, 40 MG PO DAILY Prescribed by: HARLAN ROWE on 06/30/21 160 Prednisone (Prednisone) 20 Mg Tab, 40 MG PO DAILY Prescribed by: KD CORBETT on 07/25/21 1237 Prednisone (Prednisone) 20 Mg Tab, 40 MG PO DAILY Prescribed by: NICK VARGAS on 05/29/22 180 Vit W-Ca,Fe,FA(<1 mg) ( Vitamins) 1 Each Tablet, 1 EACH PO DAILY, (Reported) Entered as Reported by: NAKIA GOMEZ on 01/21/21 0533 Tramadol HCl (Tramadol HCl) 50 Mg Tablet, 50 MG PO Q4H PRN for PAIN- BREAKTHROUGH, (Reported) Entered as Reported by: NAKIA GOMEZ on 01/21/21 0533 Tramadol HCl (Tramadol HCl) 50 Mg Tablet, 50 MG PO Q6H PRN for PAIN Prescribed by: STACEY EVANGELISTA on 08/11/21 192 Review of Systems Constitutional: no symptoms reported EENTM: no symptoms reported Respiratory: no symptoms reported Cardiovascular: no symptoms reported Gastrointestinal: no symptoms reported Genitourinary: no symptoms reported Musculoskeletal: back pain Skin: no symptoms reported Psychiatric/Neurological: No Symptoms Reported Past Xkipejw-Wpeoxe-Mcbpre Hx Patient Social History Tobacco Use?: No Use of E-Cig and/or Vaping dev: Yes E-Cig or Vaping type used: Nicotine Substance use?: No Alcohol Use?: No Immunizations Up To Date Tetanus Booster (TDap): Unknown First/Initial COVID19 Vaccinat: MARCH 2021 Second COVID19 Vaccination Ernesto: APR 2021 Third COVID19 Vaccination Date: MARCH 2021 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[employer] Seasonal Allergies Seasonal Allergies: No Past Medical History Surgery/Hospitalization HX: DENIES MED HX Surgeries: Yes Adenoidectomy, Tonsillectomy Respiratory: No Cardiac: No Neurological: Yes Neuropathy Female Reproductive Disorders: Denies Genitourinary: No Gastrointestinal: No Musculoskeletal: No Endocrine: No HEENT: Yes (S/P TONSILLECTOMY) Tonsilitis Cancer: No Psychosocial: Yes Anxiety, Depression Integumentary: No Blood Disorders: No Family Medical History No Pertinent Family Hx Physical Exam Vital Signs Vital Signs - First Documented 09/01/22 13:13 Temp 37.1 Pulse 92 Resp 20 B/P (MAP) 135/87 (103) Pulse Ox 99 O2 Delivery Room Air Capillary Refill : Less Than 3 Seconds Height, Weight, BMI Height: 5'5.00" Weight: 205lbs. oz. 92.137274uz; 35.00 BMI Method:Stated General Appearance: No Apparent Distress, WD/WN HEENT: PERRL/EOMI, TMs Normal, Normal ENT Inspection, Pharynx Normal Neck: Non Tender, Supple Respiratory: Chest Non Tender, Lungs Clear, Normal Breath Sounds Gastrointestinal: Non Tender, Soft Neurologic/Psychiatric: Alert, Oriented x3, No Motor/Sensory Deficits, Normal Mood/Affect Skin: Normal Color, Warm/Dry Progress/Results/Core Measures Results/Orders My Orders Orders - ESTELLE SWANSON APRN Ketorolac Injection (Toradol Injection) (09/01/22 15:00) Vital Signs/I&O 09/01/22 13:13 Temp 37.1 Pulse 92 Resp 20 B/P (MAP) 135/87 (103) Pulse Ox 99 O2 Delivery Room Air Blood Pressure Mean: 103 Progress Progress Note : Progress Note Patient is nontoxic and well-hydrated on exam. No adventitious lung sounds or increased work of breathing noted. Patient was ambulatory to the room. She denies any saddle anesthesia or bowel/bladder incontinence. Denies any history of diabetes or IV drug use. Patient does have some mild tenderness to palpation of the right lower back. No indication for radiographs at this time as there is no midline tenderness to palpation lumbar spine. Low suspicion for epidural abscess or hematoma. Patient was given an IM dose of ketorolac and will be discharged home with a prescription for NSAIDs and muscle relaxer. Discussed importance of follow-up with PCP. Return precautions for urgent symptomology discussed. Patient verbalized understanding. Departure Impression Primary Impression: Sciatica Qualified Codes: M54.31 - Sciatica, right side Disposition: 01 HOME, SELF-CARE Condition: Stable Departure-Patient Inst. Decision time for Depature: 15:00 Referrals: [facility] (PCP/Family) Primary Care Physician Patient Instructions: Sciatica ED Scripts Methocarbamol (Methocarbamol) 750 Mg Tablet 750 MG PO Q6-8HR for Back Pain for 5 Days, #15 TAB 0 Refills Prov: ESTELLE SWANSON APRN 09/01/22 Ketorolac Tromethamine (Ketorolac Tromethamine) 10 Mg Tablet 10 MG PO Q6H PRN for PAIN-MODERATE (5-7) for 5 Days, #20 TAB 0 Refills Prov: ESTELLE SWANSON APRN 09/01/22 ESTELLE SWANSON APRN Sep 01, 2022 15:02
[2022-09-01 15:22] VITALS: BP 135/87
== END 2022-09-01 15:22 | disposition home or self-care (01) ==
LOC: EDUNIT# 12:21 → ER 12:25
DX: M54.41 Lumbago with sciatica, right side (principal); F17.290 Nicotine dependence, other tobacco product, uncomplicated
CPT/HCPCS: 99284

== ENCOUNTER 2022-12-27 18:24 | Emergency (ER) | payer MEDICAID ==
[~2022-12-27] VITALS: Ht 162 cm; Wt 115.0 kg
[~2022-12-27 18:24] MED LIST changes: +KETO10TA PO
[2022-12-27] MEDS ORDERED: LIDOCAINE 1% INJ 20 ML VIAL ONE (18:39)
[2022-12-27] MEDS ORDERED: LIDOCAINE 1% INJ 20 ML VIAL IJ STA (18:41)
[2022-12-27] MEDS ORDERED: TETANUS,DIPTH,PERTUSS P/F (BOOSTRIX) 0.5 ML VIAL IM ONE (18:45)
[2022-12-27] MEDS ORDERED: LIDOCAINE 1% INJ 10 ML VIAL INJ ONE (18:45)
--- NOTE | 2022-12-27 18:51 | Diagnostic Imaging Report ---
INDICATION: Hand pain, laceration. TECHNIQUE: Three views of the right hand. CORRELATION STUDY: None. FINDINGS: There is soft tissue and bony amputation at the tip/tuft of the ring finger. Remaining osseous structures are otherwise intact and unremarkable. No soft tissue foreign body. IMPRESSION: 1. Soft tissue and bony amputation at the tip of the right ring finger. Dictated by: Dictated on workstation # [id number]
[2022-12-27] MEDS ORDERED: MUPIROCIN 2% OINT 22 GM (BACTROBAN) TUBE TOP STA (18:59)
[2022-12-27] MEDS ORDERED: RX-OXYCODONE/APAP 5-325 MG #4 TAB PK PO PRN (19:00)
[2022-12-27] MEDS ORDERED: TRIM/SULFAMETH 160/800 (SEPTRA DS) TAB PO ONE (19:00)
[2022-12-27] MEDS ORDERED: oxyCODONE/APAP 5/325MG (PERCOCET 5) TABLET PO ONE (19:00)
[2022-12-27] MEDS ORDERED: SULF1TAB38 PO (19:06)
[2022-12-27] MEDS ORDERED: OXYC1TAB87 PO (19:06)
--- NOTE | 2022-12-27 19:07 | ED Upper Extremity ---
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 4TH DIGIT RT HAND. TIP IS GONE, BLEEDING IS CONTROLLED AT THIS TIME Source: patient Exam Limitations: no limitations History of Present Illness Date Seen by Provider: Dec 27, 2022 Time Seen by Provider: 18:28 Initial Comments This 37-year-old woman presents to the emergency room with amputation of the tip of the right fourth finger after reaching down toward a running lawnmower blade. She denies any other injury. There is minor oozing of blood but no active hemorrhage. She is not up-to-date on her tetanus immunization. The majority of the nail bed is preserved. Allergies and Home Medications Allergies Coded Allergies: No Known Drug Allergies (Unverified , 07/15/15) Patient Home Medication List Home Medication List Reviewed: Yes Amoxicillin (Amoxicillin) 500 Mg Tablet, 500 MG PO TID Prescribed by: HARLAN ROWE on 06/30/21 160 Cyclobenzaprine HCl (Cyclobenzaprine HCl) 10 Mg Tablet, 10 MG PO TID PRN for SPASMS Prescribed by: KD CORBETT on 07/25/21 1237 Cyclobenzaprine HCl (Cyclobenzaprine HCl) 10 Mg Tablet, 10 MG PO Q8H PRN for SPASMS Prescribed by: NICK VARGAS on 05/29/22 180 Hydrocodone/Acetaminophen (Hydrocodone-Acetamin 5-325 mg) 1 Each Tablet, 1 TAB PO Q4H PRN for PAIN-MODERATE (5-7) Prescribed by: HARLAN ROWE on 04/08/212032 Hydrocodone/Acetaminophen (Hydrocodone-Acetamin 5-325 mg) 1 Each Tablet, 1 TAB PO Q4H PRN for PAIN-MODERATE (5-7) Prescribed by: HARLAN ROWE on 06/30/21 1602 Hydrocodone/Acetaminophen (Hydrocodone-Acetamin 5-325 mg) 1 Each Tablet, 1 TAB PO Q4H PRN for PAIN-BREAKTHROUGH Prescribed by: KD CORBETT on 07/25/21 1238 Ibuprofen (Ibu) 600 Mg Tablet, 600 MG PO Q6H Prescribed by: SANDRA OSUNA on 01/22/21 0746 Ketorolac Tromethamine (Ketorolac Tromethamine) 10 Mg Tablet, 10 MG PO Q6H PRN for PAIN-MODERATE (5-7) Prescribed by: David Carcamo on 09/01/22 1502 Methocarbamol (Methocarbamol) 750 Mg Tablet, 750 MG PO Q6-8HR Prescribed by: HARLAN ROWE on 08/17/21 110 Methocarbamol (Methocarbamol) 750 Mg Tablet, 750 MG PO Q6-8HR Prescribed by: David Carcamo on 09/01/22 1502 Naproxen (Naprosyn) 500 Mg Tablet, 500 MG PO BID PRN for PAIN-MODERATE (5-7) Prescribed by: HARLAN ROWE on 08/17/21 110 Oxycodone HCl/Acetaminophen (Percocet 5-325 mg Tablet) 1 Each Tablet, 1 TAB PO Q4H PRN for PAIN BREAKTROUGH Prescribed by: KD CORBETT on 12/27/221906 Prednisone (Prednisone) 20 Mg Tab, 40 MG PO DAILY Prescribed by: HARLAN ROWE on 04/08/212031 Prednisone (Prednisone) 20 Mg Tab, 40 MG PO DAILY Prescribed by: HARLAN ROWE on 06/30/21 1602 Prednisone (Prednisone) 20 Mg Tab, 40 MG PO DAILY Prescribed by: KD CORBETT on 07/25/21 1237 Prednisone (Prednisone) 20 Mg Tab, 40 MG PO DAILY Prescribed by: NICK VARGAS on 05/29/22 180 Vit W-Ca,Fe,FA(<1 mg) ( Vitamins) 1 Each Tablet, 1 EACH PO DAILY, (Reported) Entered as Reported by: NAKIA GOMEZ on 01/21/21 05 Sulfamethoxazole/Trimethoprim (Bactrim Ds Tablet) 1 Each Tablet, 1 EACH PO BID Prescribed by: KD CORBETT on 12/27/221905 Tramadol HCl (Tramadol HCl) 50 Mg Tablet, 50 MG PO Q4H PRN for PAIN- BREAKTHROUGH, (Reported) Entered as Reported by: NAKIA GOMEZ on 01/21/21 05 Tramadol HCl (Tramadol HCl) 50 Mg Tablet, 50 MG PO Q6H PRN for PAIN Prescribed by: STACEY EVANGELISTA on 08/11/21 192 Review of Systems Constitutional: no symptoms reported EENTM: no symptoms reported Respiratory: no symptoms reported Cardiovascular: no symptoms reported Gastrointestinal: no symptoms reported Genitourinary: no symptoms reported Musculoskeletal: see HPI Skin: see HPI Psychiatric/Neurological: No Symptoms Reported Past Klwmsoc-Bkilgy-Wewjfe Hx Patient Social History Tobacco Use?: Yes Use of E-Cig and/or Vaping dev: Yes E-Cig or Vaping type used: Nicotine Substance use?: No Alcohol Use?: No Immunizations Up To Date Tetanus Booster (TDap): Unknown First/Initial COVID19 Vaccinat: MARCH 2021 Second COVID19 Vaccination Ernesto: APR 2021 Third COVID19 Vaccination Date: MARCH 2021 Seasonal Allergies Seasonal Allergies: No Past Medical History Surgery/Hospitalization HX: DENIES MED HX Surgeries: Yes Adenoidectomy, Tonsillectomy Respiratory: No Cardiac: No Neurological: Yes Neuropathy Female Reproductive Disorders: Denies Genitourinary: No Gastrointestinal: No Musculoskeletal: No Endocrine: No HEENT: Yes (S/P TONSILLECTOMY) Tonsilitis Cancer: No Psychosocial: Yes Anxiety, Depression Integumentary: No Blood Disorders: No Family Medical History No Pertinent Family Hx Physical Exam Vital Signs Vital Signs - First Documented 12/27/22 18:30 Temp 37.0 Pulse 112 Resp 24 B/P (MAP) 146/96 (113) Pulse Ox 98 O2 Delivery Room Air Capillary Refill : Less Than 3 Seconds Height, Weight, BMI Height: 5'5.00" Weight: 205lbs. oz. 92.815309hc; 43.00 BMI Method:Stated General Appearance: WD/WN, moderate distress HEENT: normal ENT inspection Neck: normal inspection Cardiovascular: regular rate, rhythm, no edema, no murmur Respiratory: lungs clear, normal breath sounds, no respiratory distress Wrist: Yes normal inspection, Yes non-tender, Yes no evidence of injury, Yes normal ROM Hand: Right (Amputation of the distal half of the distal phalanx of the right fourth finger. Slight oozing of blood. The majority of the width of the nailbed is intact. Minor bruising to the fifth finger.) Neurologic/Tendon: normal motor functions, normal tendon functions, responds to pain Neurologic/Psychiatric: no motor/sensory deficits, alert, normal mood/affect (Normal for situation), oriented x 3 Skin: normal color, warm/dry Progress/Results/Core Measures Results/Orders My Orders Orders - KD CHENG MD Dipht,Pertuss(Acell),Tet Adult (Boostrix (12/27/22 18:45) Lidocaine 1% Inj 10 Ml (Xylocaine 1% Inj (12/27/22 18:45) Hand, Right, 3 Views (12/27/22 18:35) Lidocaine 1% Inj 20 Ml (Xylocaine 1% Inj (12/27/22 18:41) Lidocaine 1% Inj 20 Ml (Xylocaine 1% Inj (12/27/22 18:39) Mupirocin Ointment (Bactroban Ointment (12/27/22 18:59) Oxycodone/Apap 5/325mg Tablet (Percocet (12/27/22 19:00) Rx-Oxycodone/Apap 5-325 Mg (Rx-Percocet (12/27/22 19:00) Sulfamethoxazole/Trimet Ds Tab (Bactrim (12/27/22 19:00) Medications Given in ED Current Medications Medications Dose Ordered Sig/Laurence Route Start Time Stop Time Status Last Admin Dose Admin Diphtheria/ Tetanus/Acell Pertussis 0.5 ml ONCE ONCE IM 12/27/22 18:45 12/27/22 18:46 DC 12/27/22 18:47 0.5 ML Oxycodone/ Acetaminophen 1 ea Q4H PRN PO 12/27/22 19:00 12/27/22 19:34 DC 12/27/22 19:29 1 EA Oxycodone/ Acetaminophen 1 tab ONCE ONCE PO 12/27/22 19:00 12/27/22 19:02 DC 12/27/22 19:29 1 TAB Trimethoprim/ Sulfamethoxazole 1 ea ONCE ONCE PO 12/27/22 19:00 12/27/22 19:02 DC 12/27/22 19:29 1 EA Vital Signs/I&O 12/27/22 12/27/22 12/27/22 18:30 18:43 19:33 Temp 37.0 37.35129 Pulse 112 85 Resp 24 16 B/P (MAP) 146/96 (113) 135/84 Pulse Ox 98 97 O2 Delivery Room Air Room Air Blood Pressure Mean: 113 Progress Progress Note : Progress Note Patient's pain was treated with a digital block using approximately 8 mL of lidocaine injected at the base of the right fourth finger. Surface of the finger was also sprayed with lidocaine. Once sufficient analgesia was achieved, the wound was irrigated using saline with chlorhexidine. It was then rinsed with plain saline. Bactroban ointment was applied and Xeroform gauze placed over the wound. A bulky gauze dressing was applied over the top. Natural hemostasis occurred without any intervention. Case was discussed with Dr. Jackson, general surgeon on-call. He will see the patient at 2 PM tomorrow to discuss revision and closure versus conservative wound care with secondary healing. The advantage of the latter would be to preserve the fingernail. The advantage of surgical revision would be to expedite healing and use of the finger with reduced infection risk. Boostrix tetanus immunization was provided. Pain was further treated with Percocet. A take-home pack of Percocet was provided. Antibiotic prophylaxis was provided with Bactrim. See discharge instructions and prescriptions below for further discussion. Diagnostic Imaging Diagonstic Imaging: Xray Plain Films/CT/US/NM/MRI: hand Comments NAME: [facility] REC#: [id number] PT STATUS: DEP ER : 1985 PHYSICIAN: KD CHENG MD ADMIT DATE: 12/27/22/ER Signed Date of Exam:12/27/22 HAND, RIGHT, 3 VIEWS INDICATION: Hand pain, laceration. TECHNIQUE: Three views of the right hand. CORRELATION STUDY: None. FINDINGS: There is soft tissue and bony amputation at the tip/tuft of the ring finger. Remaining osseous structures are otherwise intact and unremarkable. No soft tissue foreign body. IMPRESSION: 1. Soft tissue and bony amputation at the tip of the right ring finger. Dictated by: Dictated on workstation # [id number] Dict: 12/27/228 Trans: 12/27/221930 [id number] Interpreted by: ROSANA CHIANG DO Electronically signed by: ROSANA CHIANG DO 12/27/221930 Departure Impression Primary Impression: Traumatic amputation of fingertip Qualified Codes: S68.119A - Complete traumatic metacarpophalangeal amputation of unspecified finger, initial encounter Disposition: 01 HOME, SELF-CARE Condition: Improved Departure-Patient Inst. Decision time for Depature: 19:03 Referrals: [facility]/MARIA [facility] (PCP/Family) Primary Care Physician ANN MARIE JACKSON DO Patient Instructions: Amputation of the Finger or Fingertip Add. Discharge Instructions: Keep the hand elevated above your heart as much as possible. Complete your antibiotics for infection prevention as prescribed. You may use ibuprofen up to 600 mg every 6 hours as needed for pain. Add Percocet as prescribed for pain not controlled by ibuprofen. Percocet may cause drowsiness so do not drive, operate machinery, or make important decisions while on Percocet. Percocet may also cause constipation, so you may wish to use a stool softener such as Colace while on Percocet. Follow-up with Dr. Jackson in his clinic at 2 PM tomorrow December 28. He will work you into his clinic appointments. Please be patient as this may take some time in the waiting room. Keep your dressing clean, dry, and intact. If you are bleeding through the dressing, feel free to return to the emergency room for a no-charge wound check and dressing change. Monitor your wound for signs of infection such as increasing swelling, increasing redness, escalating pain not responsive to medications, fever, or puslike drainage. Return to the emergency room promptly if you notice the symptoms. All discharge instructions reviewed with patient and/or family. Voiced understanding. Scripts Oxycodone HCl/Acetaminophen (Percocet 5-325 mg Tablet) 1 Each Tablet 1 TAB PO Q4H PRN for PAIN BREAKTROUGH MDD 6 TABS, #20 TAB Prov: KD CHENG MD 12/27/22 Sulfamethoxazole/Trimethoprim (Bactrim Ds Tablet) 1 Each Tablet 1 EACH PO BID, #20 TAB Prov: KD CHENG MD 12/27/22 Work/School Note: Work Release Form Date Seen in the Emergency Department: Dec 27, 2022 Return to Work: Dec 30, 2022 Other Restrictions Listed Below: No use of right hand until released. Copy Copies To 1: ANN MARIE JACKSON DO Copies To 2: [facility]/KD COLINDRES MD Dec 27, 2022 19:07
[2022-12-27 19:33] VITALS: BP 135/84
[2022-12-28] MEDS ORDERED: OXYC5CAP18 PO (15:35)
[2022-12-28] MEDS ORDERED: HYDR-700 PO (15:35)
[2022-12-28] MEDS ORDERED: SERT25TA PO (15:35)
== END 2022-12-27 19:33 | disposition home or self-care (01) ==
LOC: EDUNIT# 18:24 → ER 18:25
DX: S68.124A Partial traumatic metacarpophalangeal amputation of right ring finger, initial encounter (principal); F17.290 Nicotine dependence, other tobacco product, uncomplicated; Z23 Encounter for immunization; W31.89XA Contact with other specified machinery, initial encounter
CPT/HCPCS: 64450; 73130; 90715

== ENCOUNTER 2022-12-28 15:13 | Outpatient (CLI) | payer MEDICAID ==
[~2022-12-28] VITALS: Ht 162.6 cm; Wt 95.9 kg
[~2022-12-28 15:13] MED LIST changes: +OXYC1TAB87 PO; +SULF1TAB38 PO
[2022-12-28] MEDS ORDERED: OXYC5CAP18 PO (15:35)
[2022-12-28] MEDS ORDERED: HYDR-700 PO (15:35)
[2022-12-28] MEDS ORDERED: SERT25TA PO (15:35)
== END 2022-12-28 15:55 | disposition home or self-care (01) ==
LOC: PREOP 15:13
PROVIDERS: ATTEND Surgery
DX: Z01.818 Encounter for other preprocedural examination (principal)

== ENCOUNTER 2022-12-29 06:53 | Day surgery (SDC) | payer MEDICAID ==
[~2022-12-29] VITALS: Ht 162.6 cm; Wt 95.9 kg
[2022-12-29] VITALS (10 sets, daily range): BP systolic 102–131; BP diastolic 73–94
[~2022-12-29 06:53] MED LIST changes: +HYDR-700 PO; +OXYC5CAP18 PO; +SERT25TA PO
--- NOTE | 2022-12-29 07:05 | Progress Note-Pre Operative ---
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 ANN MARIE JACKSON DO Dec 29, 2022 07:05
[2022-12-29] MEDS ORDERED: BUP/EPI 0.5% 1:200,000 (SENSORCAINE) 30 ML VIAL ONE (07:25)
[2022-12-29] MEDS ORDERED: BUPIVACAINE 0.5% 30 ML (SENSORCAINE) VIAL ONE (07:25)
[2022-12-29] MEDS ORDERED: proPOfol 200 MG/20 ML (DIPRIVAN) VIAL IV ONE (07:30)
[2022-12-29] MEDS ORDERED: ONDANSETRON 4 MG/2 ML (SDV) Z0FRAN ONE (07:30)
[2022-12-29] MEDS ORDERED: fentaNYL INJ 100 MCG/2 ML AMP ONE (07:30)
[2022-12-29] MEDS ORDERED: MIDAZOLAM 2 MG/2 ML (VERSED) VIAL ONE (07:30)
[2022-12-29] MEDS ORDERED: LIDOCAINE PF 2% 5 ML (XYLOCAINE) VIAL ONE (07:30)
[2022-12-29] MEDS ORDERED: ceFAZolin INJECTION 2,000 MG in NS (IVPB) 50 ML IV ONE (07:45)
[2022-12-29] MEDS ORDERED: LACTATED RINGERS 1,000 ML IV PRN (07:45)
[2022-12-29] MEDS ORDERED: SEVOFLURANE (ULTANE) 15 ML INHAL SOLN ONE ×2 (08:17→08:18)
--- NOTE | 2022-12-29 08:23 | Progress Note-Post Operative ---
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 Post-Operative Diagnosis same Procedure & Operative Findings Date of Procedure 12/29/22 Procedure Performed/Findings right 4th digital block, right 4th finger partial amputation Anesthesia Type general Estimated Blood Loss Estimated blood loss (mL): minimal Specimens/Packing Specimens Removed partial finger right 4th ANN MARIE JACKSON DO Dec 29, 2022 08:23
--- NOTE | 2022-12-29 08:25 | Discharge Inst-Simple/Standard ---
Discharge Inst-Standard Patient Instructions/Follow Up Plan of Care/Instructions/FU: 1 week [place] Activity as Tolerated: No Discharge Diet: Regular Diet Other Inst to Patient Follow up Appt: Make appointment for 1 week. Instructions: No lifting greater than 10 pounds. No strenuous activity. May shower in 24 hours, no tub bath or soaking. Use incentive spirometer at home as directed. No Smoking Skin/Wound Care: Irrigate with saline to keep clean and then dry. Use nonadhesive dressing and then wrap with kerlex daily. and as needed. Symptoms to Report: Appetite Changes, Extremity Discoloration, Numbness/Tingling, Swelling Increased, Bleeding Excessive, Eyesight Changes, Pain Increased, Urine Color Change, Constipation(Persistent), Fever over 101 degree F, Pain/Pressure in chest, Urinating Difficulty, Cough Up/Vomit Blood, Heart Beat Irreg/Pounding, Pain/Pressure in jaw, Vaginal Bleeding Increase, Cramps in feet or legs, Lightheadedness, Pain/Pressure in shoulder, Diarrhea(Persistent), Memory Changes Suddenly, Questions/Concerns, Weight gain consecutive days, Dizziness/Fainting, Nausea/Vomiting, Shortness of Breath, Weight gain over 2 pounds If questions or concerns contact your physician Or seek help at emergency department. ANN MARIE JACKSON DO Dec 29, 2022 08:25
[2022-12-29] MEDS ORDERED: ONDANSETRON 4 MG/2 ML (SDV) Z0FRAN IVP PRN (08:45)
[2022-12-29] MEDS ORDERED: morphine INJ 10 MG/ML 1ML (SYR OR VIAL) IVP ONE (08:45)
--- NOTE | 2022-12-29 11:57 | OPERATIVE REPORT ---
DATE OF SERVICE: 12/29/2022 PREOPERATIVE DIAGNOSIS: Traumatic injury, right fourth finger injury with lawnmower. POSTOPERATIVE DIAGNOSES: Traumatic injury, right fourth finger injury with lawnmower. PROCEDURE: Right fourth digital block, right fourth finger partial amputation. SURGEON: Ann Marie Waterman DO ANESTHESIA: General. ESTIMATED BLOOD LOSS: Minimal. COMPLICATIONS: None. SPECIMEN: Partial fourth right finger. INDICATIONS: The patient is a 37-year-old female who had traumatic injury with a lawnmower, partially cutting the distal tip of her finger. She was explained risks and benefits of procedure and wished to proceed. Consent was signed in chart. DESCRIPTION OF PROCEDURE: The patient was taken to the operating suite where she was prepped and draped in sterile fashion. Timeout was performed. Digital block was performed on the medial and lateral aspect of the proximal 4th finger at the base, injecting 1% lidocaine. Then, a fishmouth incision was made proximal to the wound on the right fourth finger in a fishmouth fashion. Two flaps were created, going to the proximal portion of the distal phalanx at the joint space and then it and amputating the distal phalanx. The wound was then irrigated with copious amounts of irrigation. Skin was then closed using 4-0 Prolene in simple interrupted fashion closing the defect. The area was then washed and dried and a sterile bandage was applied. The patient tolerated the procedure well without complications, taken to recovery room in stable condition. Job ID: [id number] DocumentID: [id number] Dictated Date: 12/29/2022 08:28:54 Raiser Helper Date: 12/29/2022 11:55:00 Dictated By: ANN MARIE WATERMAN DO
--- NOTE | 2022-12-29 13:53 | Anesthesia-General Post-Op ---
General Patient Condition Mental Status/LOC: Same as Preop Cardiovascular: Satisfactory Nausea/Vomiting: Absent Respiratory: Satisfactory Pain: Controlled Complications: Absent Post Op Complications Complications None Follow Up Care/Instructions Patient Instructions None needed. Anesthesia/Patient Condition Patient Condition Patient was doing well after the procedure with no complaints, stable vital signs, no apparent adverse anesthesia problems. No complications reported per nursing. VLAD MIRANDA DO Dec 29, 2022 13:53
== END 2022-12-29 10:30 | disposition home or self-care (01) ==
LOC: SDC 06:53
PROVIDERS: ATTEND Surgery
DX: S69.81XA Other specified injuries of right wrist, hand and finger(s), initial encounter (principal); W28.XXXA Contact with powered lawn mower, initial encounter; F17.210 Nicotine dependence, cigarettes, uncomplicated
CPT/HCPCS: 84703; 87081